=== PATIENT | female | born 2000 | race Caucasian/White ===

== ENCOUNTER 2022-08-13 05:30 | Emergency (ER) | payer BC, SELFPAY ==
[2022-08-13 05:32] VITALS: BP 130/82; PULSE 90; RESP 16; TEMP 36.6; O2SAT 96
[2022-08-13 05:40] VITALS: O2SAT 96
[2022-08-13] MEDS: ONDANSETRON HCL ODT 4 MG TABLET PO (06:05)
--- NOTE | 2022-08-13 06:08 | ED.GENADULT ---
HPI - General Adult General Chief complaint: Upper Respiratory Infection Stated complaint: upper respiratory infection Time Seen by Provider: 08/13/22 06:33 History of Present Illness HPI narrative: Patient is a 21-year-old female who presents the emergency department with chief complaint of viral syndrome. The patient reports that yesterday evening she noticed that she started having some body aches and chills had a cough and reported she has had some nausea patient reports her last menstrual period was about a week ago reports that her mother had COVID recently but she did not have any close contact but was in the same house with her the patient reports that she has been vaccinated for COVID Related Data Allergies Allergy/AdvReac Type Severity Reaction Status Date / Time No Known Allergies Allergy Verified 08/13/22 05:41 Review of Systems Review of Systems: A 10 system review of systems was completed on the patient and is negative except for what is stated in the HPI. Nursing and ancillary documentation was reviewed. Exam Narrative: GENERAL: Well-appearing, well-nourished, and in no acute distress. HEAD: Normocephalic, atraumatic. EYES: PERRLA and EOMI. ENT: Nares clear, no rhinorrhea or epistaxis. Mucous membranes moist. NECK: Supple. CHEST: Clear to auscultation. No respiratory distress. HEART: Regular rate and rhythm. No murmur heard. Normal peripheral pulses. ABDOMEN: Soft, nontender, nondistended, normal active bowel sounds. EXTREMITIES: Normal range of motion. No edema. SKIN: Warm, dry, no rash. NEURO: No focal deficits. Alert and oriented x3. PSYCH: Normal mood and affect. Course Course Emergency Course: Patient is feeling much better after receiving Zofran ODT. Patient tested positive for influenza A and the patient was offered Tamiflu which she is excepted the prescription. Vital Signs Vital signs: Vital Signs Temperature 36.6 C 08/13/22 05:32 Pulse Rate 90 08/13/22 05:32 Respiratory Rate 16 08/13/22 05:32 Blood Pressure 130/82 08/13/22 05:32 Pulse Oximetry 96 08/13/22 05:32 Oxygen Delivery Room Air 08/13/22 05:32 Temperature 36.6 C 08/13/22 05:32 Pulse Rate 90 08/13/22 05:32 Respiratory Rate 16 08/13/22 05:32 Blood Pressure 130/82 08/13/22 05:32 Pulse Oximetry 96 08/13/22 05:40 Oxygen Delivery Room Air 08/13/22 05:40 Medical Decision Making Vital Signs Vital Signs: Vital Signs Temperature 36.6 C 08/13/22 05:32 Pulse Rate 90 08/13/22 05:32 Respiratory Rate 16 08/13/22 05:32 Blood Pressure 130/82 08/13/22 05:32 Pulse Oximetry 96 08/13/22 05:32 Oxygen Delivery Room Air 08/13/22 05:32 Temperature 36.6 C 08/13/22 05:32 Pulse Rate 90 08/13/22 05:32 Respiratory Rate 16 08/13/22 05:32 Blood Pressure 130/82 08/13/22 05:32 Pulse Oximetry 96 08/13/22 05:40 Oxygen Delivery Room Air 08/13/22 05:40 Lab Data Labs: Lab Results 08/13/22 Range/Units 05:45 Influenza A (RT-PCR) Positive (Negative) Influenza B (RT-PCR) Negative (Negative) SARS-CoV-2 RNA (RT-PCR) Negative Discharge Plan Discharge Clinical Impression: Influenza A Patient Disposition: Home, Self-Care Condition: Stable Instructions: Antibiotic Form, Influenza (ED) Prescriptions: New oseltamivir [Tamiflu] 75 mg capsule 75 mg PO Q12H 5 Days Qty: 10 0RF ondansetron 4 mg tablet,disintegrating 4 mg PO Q8H PRN (Reason: nausea and vomiting) Qty: 10 0RF benzonatate 200 mg capsule 200 mg PO TID PRN (Reason: cough) Qty: 21 0RF Follow-up/Referrals: UNKNOWN,DOCTOR [Primary Care Provider] - Levar Renteria MD [Physician] - Stand Alone Forms: Work/School Release IP Time of Disposition: 06:40
[2022-08-13 06:34] LABS: Influenza A QL RT-PCR Positive (Negative); Influenza B QL RT-PCR Negative (Negative); SARS-CoV-2 RNA PCR Negative
== END 2022-08-13 06:48 | disposition home or self-care (01) ==
PROVIDERS: Emergency Provider Emergency Medicine
DX: J10.1 Influenza due to other identified influenza virus with other respiratory manifestations (principal); Z20.822 Contact with and (suspected) exposure to COVID-19
CPT/HCPCS: 87636; 99283; A9270

== ENCOUNTER 2024-08-20 20:17 | Emergency (ER) | payer BC, SELFPAY ==
--- NOTE | ~2024-08-20 | CT_ITS ---
CT of the Abdomen and Pelvis: Indication: Abdominal pain Technique: 2.5 mm axial scans were obtained through the abdomen and pelvis following intravenous adm inistration of 100 cc of Omnipaque 350. Dose reduction technique was used on this scan by utilizing a utomated exposure control and iterative reconstruction technique. The dose-length product (DLP) was 1 79.11 mGy-cm. Findings: Scans through the lung bases demonstrate a 4 mm pleural-based left lower lobe pulmonary no dule (axial image 12).. The liver, spleen, pancreas, gallbladder, adrenals and kidneys are within normal limits. No evidence of aortic aneurysm. No lymphadenopathy. No bowel obstruction or bowel wall thickening. There is no evidence to suggest acute appendicitis. Images through the pelvis were performed. Urinary bladder unremarkable. Questionable mild prominence right ovary. No ascites. Impression: Questionable minimal prominence right ovary. Consider pelvic ultrasound as indicated. 4 mm left lower lobe pulmonary nodule. According to Fleischner Society criteria, for a low-risk patie nt, no further follow-up required. For a high-risk patient, consider 12 month follow-up CT. Reviewed, dictated and finalized at [facility]. 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 Consider pelvic ultrasound as margie cated. 4 mm left lower lobe pulmonary nodule. According to Fleischner Society criteria , for a low-risk patient, no further follow-up required. For a high-risk patien t, consider 12 month follow-up CT.
[2024-08-20 20:19] VITALS: BP 132/87; PULSE 78; RESP 17; TEMP 36.5; O2SAT 97
[2024-08-20 21:01] LABS: Basophils Absolute Auto 0.1 K/mm3 (0.0-0.1); Basophils Percent Auto 0.8 % (0.2-1.2); Eosinophils Absolute Auto 0.1 K/mm3 (0-0.3); Eosinophils Percent Auto 1.5 % (0-4.4); Hematocrit 39.4 % (37.0-47.0); Immature Granulocyte Absolute 0.02 K/mm3 (0.00-0.031); Immature Granulocyte Percent A 0.2 % (0-0.5); Lymphocytes Absolute Auto 2.23 K/mm3 (0.9-3.2); Lymphocytes Percent Auto 23.5 % (18.3-44.2); Mean Corpuscular Hemoglobin 27.8 pg (26-34); Mean Corpuscular Volume 84.2 fl (80-100); Mean Platelet Volume 9.5 fl (7.4-10.4); Monocytes Absolute Auto 0.8 K/mm3 (0.1-0.6); Monocytes Percent Auto 8.5 % (2.6-8.5); Neutrophils Absolute Auto 6.2 K/mm3 (1.3-6.7); Neutrophils Percent Auto 65.5 % (45.5-73.1); Platelet Count Result 327 k/mm3 (150-375); Red Blood Count 4.68 M/mm3 (4.2-5.4); Red Cell Distribution Width 13.5 % (11.5-14.5); White Blood Count 9.5 K/mm3 (4.5-10.0)
[2024-08-20] MEDS: SODIUM CHLORIDE 0.9% IV 1,000 ML 999 ML IV CONT (21:12)
[2024-08-20] MEDS: FAMOTIDINE 20 MG/2 ML VIAL IV PUSH (21:12)
[2024-08-20] MEDS: ONDANSETRON INJ 4 MG/2 ML VIAL IV PUSH (21:12)
[2024-08-20 21:14] LABS: Alanine Aminotransferase 15 U/L (6-35); Albumin Level 4.6 g/dL (3.5-5.1); Alkaline Phosphatase 57 U/L (38-126); Anion Gap 9 mmol/L (4-12); Aspartate Amino Transferase 24 U/L (14-36); Bilirubin,Total 0.7 mg/dL (0.2-1.3); Blood Urea Nitrogen 16 mg/dL (7-17); Calcium 9.7 mg/dL (8.4-10.2); Carbon Dioxide 26 mmol/L (22-30); Chloride 101 mmol/L (98-107); Estimated CRCL calculation 100 ml/min; Estimated Glomerular Filt Rate > 60; Glucose 79 mg/dL (65-110); Lipase 35 U/L (23-300); Magnesium 1.8 mg/dL (1.6-2.3); Potassium 3.5 mmol/L (3.4-5.0); Sodium 136 mmol/L (137-145)
--- NOTE | 2024-08-20 22:04 | ED_ITS ---
HPI - Nausea/Vomiting/Diarrhea General Chief complaint: Nausea/Vomiting/Diarrhea Stated complaint: n/v Time Seen by Provider: 08/20/24 20:32 Source: patient Mode of arrival: ambulatory Limitations: no limitations History of Present Illness HPI Narrative: Patient is a 23-year-old female who presents the ED with report of nausea and vomiting. Patient reports she has had upper respiratory symptoms over the last few days. She was seen in urgent care tested negative for COVID. She then reports today she began having nausea and vomiting. States symptoms have persisted throughout the day and she is unable to keep down any food or drink. Reports abdominal cramping associated with vomiting. Denies diarrhea, constipation. Denies fevers. Related Data Allergies Allergy/AdvReac Type Severity Reaction Status Date / Time No Known Allergies Allergy Verified 08/20/24 20:22 Review of Systems 2 Review of Systems: All systems reviewed & are unremarkable except as noted in HPI. All systems reviewed & are unremarkable except as noted in HPI and below Exam 2 Narrative: GENERAL: Mildly uncomfortable appearing, thin, non-toxic, in no acute distress. HEAD: Normocephalic, atraumatic. RESPIRATORY: Airway patent, respirations nonlabored. Clear to auscultation bilaterally, no rales, rhonchi, wheezing. CARDIOVASCULAR: Regular rate and rhythm without murmurs, rubs, or gallops. ABDOMINAL: Soft, mild tenderness with palpation in upper abdomen, nondistended. Normoactive BS. MUSCULOSKELETAL: Moves all extremities. No gross deformities. SKIN: Warm, dry, normal color. NEURO: A&O X3. Speech clear. No ataxic movements. PSYCHIATRIC: Appropriate mood and affect. Normal interaction. Course Vital Signs Vital signs: Vital Signs Temperature 97.7 F 08/20/24 20:19 Pulse Rate 78 08/20/24 20:19 Respiratory Rate 17 08/20/24 20:19 Blood Pressure 132/87 08/20/24 20:19 Pulse Oximetry 97 08/20/24 20:19 Oxygen Delivery Room Air 08/20/24 20:19 Temperature 97.7 F 08/20/24 20:19 Pulse Rate 78 08/20/24 20:19 Respiratory Rate 17 08/20/24 20:19 Blood Pressure 132/87 08/20/24 20:19 Pulse Oximetry 97 08/20/24 20:19 Oxygen Delivery Room Air 08/20/24 20:19 MDM - Nausea/Vomiting/Diarrhea MDM Narrative Medical decision making narrative: Patient presented to ED with N/V onset this morning, unable to keep down food or drink, reports URI sx's over the past few days. VSS upon arrival. She is afebrile. Cbc without leukocytosis or anemia. CMP is unremarkable. Stable electrolytes. Normal LFTs and lipase. UA with 1+ leuk esterase, 11-20 white blood cell count. No urine bacteria seen. Patient denies any urinary complaints. Sent for culture. Will defer treatment to culture results. Urine preg negative. Viral swabs are negative. CT abd/pelvis obtained and without acute intra-abdominal findings. Discussed lab and imaging findings with patient, likelihood of gastroenteritis. She is feeling improved with supportive therapy. Feels comfortable with discharge home at this time. Able to tolerate p.o. intake. Will discharge with Bentyl and Zofran for home use. Given strict return precautions. She agrees with plan. Discharged in stable condition. Medical Records Attestation: I reviewed the patient's medical records. Lab Data Attestation: I reviewed the patient's lab results. 08/20/24 20:55 08/20/24 20:55 Labs: Lab Results 08/20/24 08/20/24 08/20/24 Range/Units 20:55 22:12 22:54 WBC 9.5 (4.5-10.0) K/mm3 RBC 4.68 (4.2-5.4) M/mm3 Hgb 13.0 (12.0-15.0) g/dL Hct 39.4 (37.0-47.0) % MCV 84.2 (80-100) fl MCH 27.8 (26-34) pg MCHC 33.0 (32-36) g/dl RDW 13.5 (11.5-14.5) % Plt Count 327 (150-375) k/mm3 MPV 9.5 (7.4-10.4) fl Immature Gran % (Auto) 0.2 (0-0.5) % Neut % (Auto) 65.5 (45.5-73.1) % Lymph % (Auto) 23.5 (18.3-44.2) % Guadalupe % (Auto) 8.5 (2.6-8.5) % Eos % (Auto) 1.5 (0-4.4) % Baso % (Auto) 0.8 (0.2-1.2) % Lymph # (Auto) 2.23 (0.9-3.2) K/mm3 [place]upe # (Auto) 0.8 H (0.1-0.6) K/mm3 Eos # (Auto) 0.1 (0-0.3) K/mm3 Baso # (Auto) 0.1 (0.0-0.1) K/mm3 Abs Immat Gran (auto) 0.02 (0.00-0.031) K/mm3 Absolute Neuts (auto) 6.2 (1.3-6.7) K/mm3 Absolute Nucleated RBC 0.000 (0.0-0.012) K/mm3 Nucleated RBC % 0.0 (0.0-0.2) % Sodium 136 L (137-145) mmol/L Potassium 3.5 (3.4-5.0) mmol/L Chloride 101 (98-107) mmol/L Carbon Dioxide 26 (22-30) mmol/L Anion Gap 9 (4-12) mmol/L BUN 16 (7-17) mg/dL Creatinine 0.60 L (0.7-1.0) mg/dL Estim Creat Clear Calc 100 ml/min Estimated GFR > 60 (59 - ) Glucose 79 (65-110) mg/dL Calcium 9.7 (8.4-10.2) mg/dL Magnesium 1.8 (1.6-2.3) mg/dL Total Bilirubin 0.7 (0.2-1.3) mg/dL AST 24 (14-36) U/L ALT 15 (6-35) U/L Alkaline Phosphatase 57 (38-126) U/L Total Protein 8.0 (6.3-8.2) g/dL Albumin 4.6 (3.5-5.1) g/dL Lipase 35 (23-300) U/L Urine Color Yellow (Yellow) Urine Appearance Cloudy H (Clear) Urine pH 6.5 (5.0-9.0) Ur Specific Taylor 1.022 (1.001-1.035) Urine Protein Trace (Negative) mg/dL Urine Glucose (UA) Negative (Negative) mg/dL Urine Ketones 1+ H (Negative) mg/dL Ur Blood (Man) Negative (Negative) Urine Nitrate Negative (Negative) Urine Bilirubin Negative (Negative) Urine Urobilinogen 0.2 (<2.0) mg/dL Leukocyte Esterase Rfl 1+ H (Negative) REYNA/UL Urine RBC 0-2 (0-2) /hpf Urine WBC 11-20 H (0-3) /hpf Ur Squamous Epith Cells None seen (Few) /hpf Urine Bacteria None seen /hpf Urine Casts 0-2 POC Urine HCG, Qual (Negative) Influenza A (RT-PCR) Negative (Negative) Influenza B (RT-PCR) Negative (Negative) RSV (RT-PCR) Negative (Negative) SARS-CoV-2 RNA (RT-PCR) Negative (Negative) 08/20/24 Range/Units 22:55 WBC (4.5-10.0) K/mm3 RBC (4.2-5.4) M/mm3 Hgb (12.0-15.0) g/dL Hct (37.0-47.0) % MCV (80-100) fl MCH (26-34) pg MCHC (32-36) g/dl RDW (11.5-14.5) % Plt Count (150-375) k/mm3 MPV (7.4-10.4) fl Immature Gran % (Auto) (0-0.5) % Neut % (Auto) (45.5-73.1) % Lymph % (Auto) (18.3-44.2) % Guadalupe % (Auto) (2.6-8.5) % Eos % (Auto) (0-4.4) % Baso % (Auto) (0.2-1.2) % Lymph # (Auto) (0.9-3.2) K/mm3 [place]upe # (Auto) (0.1-0.6) K/mm3 Eos # (Auto) (0-0.3) K/mm3 Baso # (Auto) (0.0-0.1) K/mm3 Abs Immat Gran (auto) (0.00-0.031) K/mm3 Absolute Neuts (auto) (1.3-6.7) K/mm3 Absolute Nucleated RBC (0.0-0.012) K/mm3 Nucleated RBC % (0.0-0.2) % Sodium (137-145) mmol/L Potassium (3.4-5.0) mmol/L Chloride (98-107) mmol/L Carbon Dioxide (22-30) mmol/L Anion Gap (4-12) mmol/L BUN (7-17) mg/dL Creatinine (0.7-1.0) mg/dL Estim Creat Clear Calc ml/min Estimated GFR (59 - ) Glucose (65-110) mg/dL Calcium (8.4-10.2) mg/dL Magnesium (1.6-2.3) mg/dL Total Bilirubin (0.2-1.3) mg/dL AST (14-36) U/L ALT (6-35) U/L Alkaline Phosphatase (38-126) U/L Total Protein (6.3-8.2) g/dL Albumin (3.5-5.1) g/dL Lipase (23-300) U/L Urine Color (Yellow) Urine Appearance (Clear) Urine pH (5.0-9.0) Ur Specific Taylor (1.001-1.035) Urine Protein (Negative) mg/dL Urine Glucose (UA) (Negative) mg/dL Urine Ketones (Negative) mg/dL Ur Blood (Man) (Negative) Urine Nitrate (Negative) Urine Bilirubin (Negative) Urine Urobilinogen (<2.0) mg/dL Leukocyte Esterase Rfl (Negative) REYNA/UL Urine RBC (0-2) /hpf Urine WBC (0-3) /hpf Ur Squamous Epith Cells (Few) /hpf Urine Bacteria /hpf Urine Casts POC Urine HCG, Qual Negative (Negative) Influenza A (RT-PCR) (Negative) Influenza B (RT-PCR) (Negative) RSV (RT-PCR) (Negative) SARS-CoV-2 RNA (RT-PCR) (Negative) Imaging Data Attestation: I personally reviewed and interpreted this imaging study as follows: Radiologist's impression: STAT RAD CT abd/pelvis: Impression: No acute findings. Incidental findings: Liver, gallbladder, spleen, pancreas, adrenal glands, and kidneys are unremarkable. Normal appendix. No bowel obstruction. No bowel inflammation. Arcuate uterine morphology. Normal urinary bladder. No acute osseous findings. Discharge Plan Discharge Clinical Impression: Nausea and vomiting Qualifiers: Vomiting type: unspecified Qualified Code(s): R11.2 - Nausea with vomiting, unspecified Patient Disposition: Home, Self-Care Condition: Stable Instructions: Antibiotic Form, Dehydration (ED), Gastroenteritis (ED), Acute Nausea and Vomiting (ED) Additional Instructions: Utilize Tylenol/Bentyl as needed for further abdominal discomfort. Utilize zofran as needed for further nausea. Increase fluid intake. Recommend electrolyte rich fluids, gatorade, pedialyte, body armour. Recommend clear liquids or bland diet until symptoms improve, such as bananas, rice, applesauce, toast, or crackers. Follow up with your primary care doctor for further evaluation. Return to the ED if you experience worsening or severe symptoms, unable to keep down food or drink, severe pain, fevers, rectal bleeding, vomiting blood, or any other symptoms of concern. Patient Language: Khmer Prescriptions: New dicyclomine 20 mg tablet 20 mg PO TID PRN (Reason: Abdominal Discomfort) Qty: 15 0RF ondansetron 4 mg tablet,disintegrating 4 mg PO Q8H PRN (Reason: nausea and vomiting) Qty: 15 0RF No Action oseltamivir [Tamiflu] 75 mg capsule 75 mg PO Q12H 5 Days Qty: 10 0RF ondansetron 4 mg tablet,disintegrating 4 mg PO Q8H PRN (Reason: nausea and vomiting) Qty: 10 0RF benzonatate 200 mg capsule 200 mg PO TID PRN (Reason: cough) Qty: 21 0RF Follow-up/Referrals: UNKNOWN,DOCTOR [Primary Care Provider] - Time of Disposition: 01:31
[2024-08-20 22:55] LABS: Influenza A QL RT-PCR Negative (Negative); Influenza B QL RT-PCR Negative (Negative); RSV RNA, RT-PCR Negative (Negative); SARS-CoV-2 RNA PCR Negative (Negative)
[2024-08-20 23:02] LABS: Add Urine Microscopic? YES; Appearance Urine Cloudy (Clear); Bacteria Urine None Seen /hpf; Bilirubin Urine Negative (Negative); Blood Urine Negative (Negative); Color Urine Yellow (Yellow); Glucose Urine UA Negative (Negative); Ketones Urine 1+ mg/dL (Negative); Leukocyte Esterase Ur 1+ LEU/UL (Negative); Nitrate Urine Negative (Negative); Non Pathogenic Casts 0-2; Protein Urine Trace mg/dL (Negative); RBC Urine 0-2 /hpf (0-2); Specific Grav Ur 1.022 (1.001-1.035); Squamous Epithelial Cell Urine None Seen /hpf (Few); Urobilinogen Urine 0.2 mg/dL (<2.0); pH Urine 6.5 (5.0-9.0)
[2024-08-20 23:03] LABS: BEDSIDEPREGUCG Negative (Negative)
[2024-08-21 01:47] VITALS: BP 152/84; PULSE 67; RESP 16; O2SAT 100
--- OUTSIDE RECORDS SUMMARY | 2024-08-25 04:25 | XMS_ITS | Encounter Summary ---
Author Organization [facility] Address [address] [place] [address] Care Team Providers Care Clinical Rn Manager Name Role Phone Nata Conley MD Primary Care Provider [phone] Reason for Visit * Reason Comments Refill Request Encounter Details Date Type Department Care Team (Late st Contact Info) Description 05/31/2020 Refill [facility] - Pediatrics [address] [place] [phone] Nata Conley MD [address] [place] [address] Refill Request Social History Tobacco Use Types Packs/Day Years Used Date Smoking Tobacco: Never Smokeless Tobacco: Never Comments:non smoking househo ld Alcohol Use Standard Drinks/Week Comments No 0 (1 standard drink = 0.6 oz pur e alcohol) Sex and Gender Information Value Date Recorded Sex Assigned at Not on file Gender Identity Not on file Sexual Orientation Not on file documented as of this encounter Miscellaneous Notes * Telephone Encounter - Birgit Lundberg RN - 06/01/2020 8:59 AM CDT See other message in chart - phone number for parent is not working. Need updated phone number. * Telephone Encounter - Nata Conley MD - 06/01/2020 7:53 AM CDT One month supply provided. Will need to schedule well child check prior to additional refills beinggiven. * Telephone Encounter - Birgit Lundberg RN - 05/31/2020 8:14 AM CDT DOES NOT MEET PROTOCOL - SENT TO PROVIDER FOR REVIEW Last Office Visit with PCP: 02/23/19 Next Appointment with PCP: Visit date not found Follow-up: 12 months Date of last refill: 05/10/19 Please advise PT IS DUE FOR [facility]. MESSAGE SENT TO HEADING REPAIRER TO SCHEDULE. documented in this encounter Plan of Treatment Not on file documented as of this encounter Goals Goal Patient Goal Type Associated Problems Recent Progress Patient-Stated? 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
--- OUTSIDE RECORDS SUMMARY | 2024-08-25 04:25 | XMS_ITS | Encounter Summary ---
Author Organization [facility] Address [address] [place] [address] Care Team Providers Care Medication Coordinator Name Role Phone Nata Conley MD Primary Care Provider [phone] Reason for Visit * Reason Comments Refill Request Encounter Details Date Type Department Care Team (Late st Contact Info) Description 05/10/2019 Refill [facility] - Pediatrics [address] [address] [place] [address] Nata Conley MD [address] [place] [address] Refill Request Social History Tobacco [...] encounter Miscellaneous Notes * Telephone Encounter - Eryn Jean-Baptiste RN - 05/14/2019 11:06 AM CDT Called parents and notified via VM that medication refilled and to f/u with pharmacy. Left number to call office back as needed-note closed out. * Telephone Encounter - Tania Cota RN - 05/10/2019 12:14 PM CDT Refill request for [place]-Linyah SHERWIN:02-23-19 Last refill:02-25-19 NOV:None scheduled Requested Prescriptions Pending Prescriptions Disp Refills ??? MONO-LINYAH 0.25-35 MG-MCG tablet [Pharmacy Med Name: MONO-LINYAH 0.25-35 TAB] 28 tablet 1 Sig: TAKE 1 TABLET BY MOUTH ONCE DAILY REASONS: CONTROL TREATMENT documented in this encounter Plan of Treatment Not on file documented as of this encounter Goals Goal Patient Goal Type Associated Problems Recent Progress Patient-Stated? 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
--- OUTSIDE RECORDS SUMMARY | 2024-08-25 04:25 | XMS_ITS | Encounter Summary ---
Author Organization [facility] Address [address] [facility] [place] [address] Care Team Providers Care Back Up Worker Name Role Phone Nata Conley MD Primary Care Provider [phone] Reason for Visit * Reason Comments Ear Problem Rash Encounter Details Date Type Department Care Team (Late st Contact Info) Description 12/30/2023 1:00 PM CDT Office Visit [facility] [address] [phone] Provider1, [facility] Dysfunction of left eustachian tube (Primary Dx) Social History Tobacco Use Types Packs/Day Years Used Date Smoking Tobacco: Never Smokeless Tobacco: Never Comments:non smoking househo Alcohol Use Standard Drinks/Week Comments No 0 (1 standard drink = 0.6 oz pur e alcohol) PHQ-2 Answer Date Recorded Patient Health Questionnaire-2 Score 0 12/30/2023 Sex and Gender Information Value Date Recorded Sex Assigned at Not on file Gender Identity Not on file Sexual Orientation Not on file documented as of this encounter Last Filed Vital Signs Vital Sign Reading Time Taken Comments Blood Pressure - - Pulse - - Temperature 36.7 ??C (98.1 ??F) 12/30/2023 1:19 PM CD T Respiratory Rate 18 12/30/2023 1:19 PM CDT Oxygen Saturation - - Inhaled Oxygen Concentration - - Weight 51.5 kg (113 lb 9.6 oz) 12/30/2023 1:19 P M CDT Height 157.5 cm (5' 2 ) 12/30/2023 1:19 PM CDT Body Mass Index 20.78 12/30/2023 1:19 PM CDT documented in this encounter Patient Instructions * Patient Instructions* Jaclyn Cade APRN-CNP - 12/30/2023 2:20 PM CDT Use flonase daily. Chew gum, yawn, frequently try to pop your ears. Daily zyrtec or allergy tab recommended. documented in this encounter Progress Notes * Jaclyn Cade APRN-CNP - 12/30/2023 2:17 PM CDT 12/30/2023 PCP: Nata Conley MD CC: Chief Complaint Patient presents with ??? Ear Problem ??? Rash . HPI: Carmen Tse is a 23 year old female [facility] with complaints of muffled hearing to left ear. The patient was recently treated for left ear infection. She reports she feels better but still having some aching and muffled hearing in her left ear. She is concerned about a fine red rash to her neck. Outpatient Medications Prior to Visit Medication Sig Dispense Refill ??? amoxicillin-clavulanate (Augmentin) 875-125 MG tablet Take 1 (one) tablet by mouth 2 times daily with morning and evening meal for 7 days (Patient not taking: Reported on 12/30/2023) 14 tablet 0 ??? azithromycin (Zithromax) 250 MG tablet Take 2 tabs today, then 1 tab daily for next 4 days (Patient not taking: Reported on 07/21/2023) 6 tablet 0 ??? norgestimate-ethinyl estradiol (MONO-LINYAH) 0.25-35 MG-MCG tablet Take 1 tablet by mouth once daily (Patient not taking: Reported on 06/23/2022) 28 tablet 6 No facility-administered medications prior to visit. Past Medical History: Diagnosis Date ??? NEGATIVE PAST MEDICAL HISTORY - SEE PROBLEM LIST Past Surgical History: Procedure Laterality Date ??? NEGATIVE SURGICAL HISTORY Social History Tobacco Use Smoking Status Never Smokeless Tobacco Never Tobacco Comments non smoking household Social History Substance and Sexual Activity Drug Use No No Known Allergies Family History Problem Relation Name Age of Onset ??? Other - Cardiac Father 1st [place] at age 42 ??? Cancer - Other Father Renal ??? Hypertension Father ??? Hyperlipidemia Father ??? CAD (Coronary Artery Disease) Father ??? Other Maternal Grandmother PVD ??? Other - Cardiac Maternal Grandfather at age 46 from V-fib ??? Asthma Neg Hx ??? Autoimmune Disease Neg Hx ??? Bipolar Disorder Neg Hx ??? Cancer - Breast Neg Hx ??? Cancer - Colon Neg Hx ??? Cancer - Ovarian Neg Hx ??? Cancer - Pancreatic Neg Hx ??? Cancer - Prostate Neg Hx ??? Depression Neg Hx ??? Eczema Neg Hx ??? Migraine Neg Hx ??? Seizures Neg Hx ? ? Sudd. <30 Neg Hx ??? Thyroid Disease Neg Hx ??? Osteoporosis Neg Hx ??? Ulcerative Colitis Neg Hx Review of Systems: Pertinent information listed in HPI. Exam: Temp 98.1 ??F (36.7 ??C) Resp 18 Ht 1.575 m (5' 2 ) Wt 51.5 kg (113 lb 9.6 oz) LMP 12/16/2023 (Approximate) BMI 20.78 kg/m?? Physical Exam Vitals and nursing note reviewed. HENT: Head: Normocephalic. Right Ear: Hearing, tympanic membrane, ear canal and external ear normal. Left Ear: Ear canal and external ear normal. There is impacted cerumen. Tympanic membrane has decreased mobility. Mouth/Throat: Mouth: Mucous membranes are moist. Cardiovascular: Rate and Rhythm: Normal rate. Pulmonary: Effort: Pulmonary effort is normal. Neurological: Mental Status: She is alert. No results found for this visit on 12/30/23. Plan Impression: ICD-10-CM 1. Dysfunction of left eustachian tube H69.92 fluticasone propionate (Flonase) 50 MCG/ACT nasal spray Treatment: Flushed left ear with warm water and peroxide. Upon exam no erythema or concern for infection. Cannot pop her ear. Orders Placed This Encounter ??? fluticasone propionate (Flonase) 50 MCG/ACT nasal spray Sig: [place] 2 (two) sprays into each nostril once daily Dispense: 16 g Refill: 0 Patient Instructions Use flonase daily. Chew gum, yawn, frequently try to pop your ears. Daily zyrtec or allergy tab recommended. There are no discontinued medications. Current Outpatient Medications Medication Sig Dispense Refill ??? amoxicillin-clavulanate (Augmentin) 875-125 MG tablet Take 1 (one) tablet by mouth 2 times daily with morning and evening meal for 7 days (Patient not taking: Reported on 12/30/2023) 14 tablet 0 ??? azithromycin (Zithromax) 250 MG tablet Take 2 tabs today, then 1 tab daily for next 4 days (Patient not taking: Reported on 07/21/2023) 6 tablet 0 ??? fluticasone propionate (Flonase) 50 MCG/ACT nasal spray [place] 2 (two) sprays into each nostril once daily 16 g 0 ??? norgestimate-ethinyl estradiol (MONO-LINYAH) 0.25-35 MG-MCG tablet Take 1 tablet by mouth once daily (Patient not taking: Reported on 06/23/2022) 28 tablet 6 No current facility-administered medications for this visit. Follow up : Return if symptoms worsen or fail to improve. JESUS ALBERTO Amezquita documented in this encounter Plan of Treatment Not on file documented as of this encounter Goals Goal Patient Goal Type Associated Problems Recent Progress Patient-Stated? Author Use safety retraint in car Lifestyle On track( 020 1:40 PM TICKET BROKER) No Irais Rios documented as of this encounter Visit Diagnoses Diagnosis Dysfunction of left eustachian tube- Primary Dysfunction of Eustachian tube documented in this encounter Care Teams Back Up Worker Relationship Specialty Start Date End Date Nata Conlye MD [address] [place] [phone] PCP - General Pediatrics 02/23/19 documented as of this encounter
--- OUTSIDE RECORDS SUMMARY | 2024-08-25 04:25 | XMS_ITS | Encounter Summary ---
Author Organization [facility] Address [address] [facility] [place] [address] Care Team Providers Care Brazing Machine Operator Automatic Name Role Phone Nata Conley MD Primary Care Provider Encounter Details Date Type Department Care Team (Latest Contact Info) Description 12/24/2023 Travel Social History Tobacco Use Types Packs/Day Years Used Date Smoking Tobacco: Never Smokeless Tobacco: Never Comments:non smoking househo ld Alcohol Use Standard Drinks/Week Comments No 0 (1 standard drink = 0.6 oz pur e alcohol) PHQ-2 Answer Date Recorded Patient Health Questionnaire-2 Score 0 12/24/2023 Sex and Gender Information Value Date Recorded Sex Assigned at Not on file Gender Identity Not on file Sexual Orientation Not on file documented as of this encounter Plan of Treatment Not on file documented as of this encounter Goals Goal Patient Goal Type Associated Problems Recent Progress Patient-Stated? Author Use safety retraint in car Lifestyle On track( 020 1:40 PM VAT CLEANER) No Irais Rios documented as of this encounter Visit Diagnoses Not on filedocumented in this encounter Care Teams Brazing Machine Operator Automatic Relationship Specialty Start Date End Date Nata Conley MD [address] [place] [phone] PCP - General Pediatrics 02/23/19 documented as of this encounter
--- OUTSIDE RECORDS SUMMARY | 2024-08-25 04:25 | XMS_ITS | Encounter Summary ---
Author Organization [facility] Address [address] [place] [address] Care Team Providers Care Elastic Attacher Zigzag Name Role Phone Nata Conley MD Primary Care Provider [phone] Encounter Details Date Type Department Care Team (Latest Contact Info) Description 06/23/2022 Travel Social History Tobacco Use Types Packs/Day Years Used Date Smoking Tobacco: Never Smokeless Tobacco: Never Comments:non smoking househo ld Alcohol Use Standard Drinks/Week Comments No 0 (1 standard drink = 0.6 oz pur e alcohol) PHQ-2 Answer Date Recorded PHQ2 TOTAL SCORE 0 06/23/2022 Sex and Gender Information Value Date Recorded Sex Assigned at Not on file Gender Identity Not on file Sexual Orientation Not on file COVID-19 Exposure Response Date Recorded In the last 10 days, have yo u been in contact with someone who was confirmed or suspected to have Coronavirus/COVID-19? No / Unsure 06/23/2022 1:27 PM CDT documented as of this encounter Plan of Treatment Not on file documented as of this encounter Goals Goal Patient Goal Type Associated Problems Recent Progress Patient-Stated? Author Use safety retraint in car Lifestyle On track( 020 1:40 PM RELEASE MANAGER) No Irais Rios documented as of this encounter Visit Diagnoses Not on filedocumented in this encounter Care Teams Elastic Attacher Zigzag Relationship Specialty Start Date End Date Nata Conley MD [address] [place] [phone] PCP - General Pediatrics 02/23/19 documented as of this encounter
--- OUTSIDE RECORDS SUMMARY | 2024-08-25 04:25 | XMS_ITS | Encounter Summary ---
Author Organization [facility] Address [address] [facility] [place] [address] Care Team Providers Care Centralized Traffic Control Operator Name Role Phone Nata Conley MD Primary Care Provider [phone] Reason for Visit * Reason Comments Cough Sore Throat Encounter Details Date Type Department Care Team (Late st Contact Info) Description 07/21/2023 3:00 PM PROOF READER Office Visit [facility] [address] [phone] Provider1, [facility] Acute pharyngitis, unspecified etiology (Primary Dx); Acute cough Social History Tobacco Use Types Packs/Day Years Used Date Smoking Tobacco: Never Smokeless Tobacco: Never Tobacco Cessation:Counseling Given: Not Answered Comments:non smoking household Alcohol Use Standard Drinks/Week Comments No 0 [...] Sign Reading Time Taken Comments Blood Pressure 116/77 07/21/2023 2:56 PM PROOF READER Pulse 106 07/21/2023 2:56 PM PROOF READER Temperature 36.9 ??C (98.5 ??F) 07/21/2023 2:56 PM CS T Respiratory Rate 20 07/21/2023 2:56 PM PROOF READER Oxygen Saturation 97% 07/21/2023 2:56 PM PROOF READER Inhaled Oxygen Concentration - - Weight 46.3 kg (102 lb) 07/21/2023 2:56 PM PROOF READER Height - - Body Mass Index - - documented in this encounter Progress Notes * Hiren Dickey, BOILER WASHER-[employer] INTERN - 07/21/2023 3:04 PM CST 07/21/2023 PCP: Nata Conley MD CC: Chief Complaint Patient presents with ??? Cough ??? Sore Throat . HPI: Carmen Tse is a 22 year old female [facility] with complaints of cough, sore throat, and congestion for a few weeks. Has used nyquil and dayquil. Has had a low grade temp at times. Outpatient Medications Prior to Visit Medication Sig Dispense Refill ??? azithromycin (Zithromax) 250 MG tablet Take [...] Onset ??? Other - Cardiac Father 1st [place] at age 42 ??? Cancer - Other [...] Systems: Pertinent information listed in HPI. Exam: BP 116/77 Pulse 106 Temp 98.5 ??F (36.9 ??C) Resp 20 Wt 46.3 kg (102 lb) LMP 06/19/2022 SpO2 97% No Physical Exam Vitals and nursing note reviewed. Constitutional: Appearance: Normal appearance. HENT: Head: Normocephalic. Right Ear: Hearing, ear canal and external ear normal. Tympanic membrane is bulging. Left Ear: Hearing, ear canal and external ear normal. Tympanic membrane is bulging. Nose: Nose normal. Mouth/Throat: Mouth: Mucous membranes are moist. Pharynx: Uvula midline. Pharyngeal swelling and posterior oropharyngeal erythema present. Tonsils: 3+ on the right. 3+ on the left. Eyes: Pupils: Pupils are equal, round, and reactive to light. Cardiovascular: Rate and Rhythm: Normal rate. Pulmonary: Effort: Pulmonary effort is normal. Breath sounds: Normal breath sounds and air entry. Skin: General: Skin is warm and dry. Capillary Refill: Capillary refill takes less than 2 seconds. Neurological: General: No focal deficit present. Mental Status: She is alert. Psychiatric: Mood and Affect: Mood normal. Behavior: Behavior normal. Behavior is cooperative. No results found for this visit on 07/21/23. Plan Impression: ICD-10-CM 1. Acute pharyngitis, unspecified etiology J02.9 2. Acute cough R05.1 Treatment: Orders Placed This Encounter ??? amoxicillin-clavulanate (Augmentin) 875-125 MG tablet Sig: Take 1 (one) tablet by mouth 2 times daily with morning and evening meal Dispense: 20 tablet Refill: 0 There are no Patient Instructions on file for this visit. There are no discontinued medications. Current Outpatient Medications Medication Sig Dispense Refill ??? amoxicillin-clavulanate (Augmentin) 875-125 MG tablet Take 1 (one) tablet by mouth 2 times daily with morning and evening meal 20 tablet 0 ??? azithromycin (Zithromax) 250 MG tablet Take 2 tabs today, then 1 tab daily for next 4 days (Patient not taking: Reported on 07/21/2023) 6 tablet 0 ??? norgestimate-ethinyl estradiol (MONO-LINYAH) 0.25-35 MG-MCG tablet Take 1 tablet by mouth once daily (Patient not taking: Reported on 06/23/2022) 28 tablet 6 No current facility-administered medications for this visit. Follow up : No follow-ups on file. JESUS ALBERTO Moreland F READER documented in this encounter Plan of Treatment Not on file documented as of this encounter Goals Goal Patient Goal Type Associated Problems Recent Progress Patient-Stated? Author Use safety retraint in car Lifestyle On track( 020 1:40 PM PROOF READER) No Irais Rios documented as of this encounter Visit Diagnoses Diagnosis Acute pharyngitis, unspecified etiology- Primary Acute cough documented in this encounter Care Teams Centralized Traffic Control Operator Relationship Specialty Start Date End Date Nata Conley MD [address] [place] [phone] PCP - General Pediatrics 02/23/19 documented as of this encounter
--- OUTSIDE RECORDS SUMMARY | 2024-08-25 04:25 | XMS_ITS | Encounter Summary ---
Author Organization [facility] Address [address] [place] [address] Care Team Providers Care Materials Handling Equipment Operator Name Role Phone Nata Conley MD Primary Care Provider [phone] Reason for Visit * Reason Comments Well Child Check 19yr Encounter Details Date Type Department Care Team (Latest Contact Info) Description 07/10/2020 1:45 PM PINBALL MACHINE REPAIRER Office Visit [facility] - Pediatrics [address] [facility] [address] [place] [address] Chago Coates, DO [address] [place] [address] Encounter for routine child health examination without abnormal findings (Primary Dx); Need for vaccination; Screening for iron deficiency anemia; Encounter for surveillance of contraceptive pills Social History Tobacco Use Types Packs/Day Years [...] Sign Reading Time Taken Comments Blood Pressure 100/62 07/10/2020 1:38 PM PINBALL MACHINE REPAIRER Pulse - - Temperature 36.6 ??C (97.9 ??F) 07/10/2020 1:38 PM CS T Respiratory Rate - - Oxygen Saturation - - Inhaled Oxygen Concentration - - Weight 51.6 kg (113 lb 12.8 oz) 07/10/2020 1:38 PM PINBALL MACHINE REPAIRER Height 161.1 cm (5' 3.43 ) 07/10/2020 1:38 PM CS T Body Mass Index 19.89 07/10/2020 1:38 PM PINBALL MACHINE REPAIRER Body Mass Index Percentile 32.42% 07/10/2020 1:3 8 PM PINBALL MACHINE REPAIRER Growth Chart: CDC (Girls, 2- 20 Years) documented in this encounter Patient Instructions * Patient Instructions* Luis Luz MA - 07/10/2020 1:40 PM PINBALL MACHINE REPAIRER YOUR GROWING CHILD: 15 TO 17 YEARS Child???s Name: Carmen Tse Today???s Date: 07/10/2020 BP 100/62 Temp 97.9 ??F (36.6 ??C) (Temporal) Ht 1.611 m (5' 3.43 ) Wt 51.6 kg (113 lb 12.8 oz) BMI19.89 kg/m2 Wt Readings from Last 1 Encounters: 07/10/20 51.6 kg (113 lb 12.8 oz) (30 %, Z= -0.54)* * Growth percentiles are based on CDC (Girls, 2-20 Years) data. 30 %ile (Z= -0.54) based on CDC (Girls, 2-20 Years) bcrliz-zac-hhd data using vitals from 07/10/2020. Ht Readings from Last 1 Encounters: 07/10/20 1.611 m (5' 3.43 ) (38 %, Z= -0.31)* * Growth percentiles are based on CDC (Girls, 2-20 Years) data. 38 %ile (Z= -0.31) based on CDC (Girls, 2-20 Years) Nvdpnah-ind-oma data based on Stature recorded on 07/10/2020. IMMUNIZATIONS One of the best ways to insure continued good health for your child is through a program of regularimmunizations. Many contagious diseases have now been controlled by immunizations. We routinely immunize children at the time of their regular checkups. It is important for you to keep a record of all immunizations given. This information will be of value to you in the care of your child in the future. We will provide you a copy of your immunization record at each of your visits. WHAT TO EXPECT Talk with your child after school about their day, what they liked, what they didn???t like, and ifthey have any concerns. Talk with your child about what to do if they or someone they know is beingbullied. Speak with your child about what they might want to do after high school, where they might want to go to college, and if they have a career in mind. It???s a good idea to give your child chores to do around the house. Some age appropriate chores include: 1. Wash dishes 2. Prepare simple family meals 3. [place] leaves 4. Take the trash out for pick-up 5. Be responsible for feeding and watering the family pet 6. Keep bedroom and designates room in house clean 7. Vacuum individual rooms 8. Be responsible for homework 9. Help younger siblings with their chores Limit TV and electronic device time to 5-6 hours a day. Make sure that your child is active for at least 3 hours a day. Talk to your child about not using cigarettes, using drugs, or drinking alcohol. Make sure that youare familiar with the friends that they are spending time with. Teach your child the importance of delaying sexual behavior and make sure they know that they can ask you any questions that they make have about sexual behaviors. SAFETY POISON CONTROL: (PLEASE POST IN YOUR HOME OR ON YOUR PHONE) There are three ingredients for childhood injuries and accidents: the child, the object, and the environment in which the injury happens. Therefore, you must be aware of all three. Continue to be aware of poisonous hazards in your home, basement, and garage. Establish a plan for leaving the house in case of fire. Alert your children to be careful around strange animals, and to not bother any animal that is eating. Children should now know their name, address, and telephone number. Remind your child about not accepting rides or food from strangers. Helmets should be worn for anything that your child rides on that has wheels or could possibly fallout of or off of including but not limited to: bikes, skates, skate boards, scooters, horses, pogo sticks, etc. CAR SAFETY Please speak with your child about the importance of car safety. Make use that they wear seat beltsat all times while driving or being a passenger. Also speak to them about cell phone usage while driving. The texts and phone calls can WAIT. [place] law, effective May 04, 2006, says your child must be in a booster seat if they are ages 4 through 7 who weigh at least 40 pounds, unless they are 80 pounds or 4???9?? tall. DO NOT ALLOW ANYONE TO SMOKE AROUND YOUR CHILD. DIET Make sure that your child is eating breakfast in the morning school bus attendant. Encourage them to eat at least 3 servings of dairy a day and at least 5 serving of vegetables/fruits per day. Limit candy, soft drinks, and other high fat/calorie food and snacks. TEETH Your child should be established and receiving regular check-ups with a dentist. A daily routine ofbrushing at least twice a day needs to be in place by now. Frequently your child may need some supervision for proper technique. Also, your child should be flossing at least once daily. SLEEP Make sure that your child is getting at least 8-10 hours of sleep a night. Where can I go for more information? [place] [employer] ( ) www.aap.org, HealthyChildren.org www.healthychildren.org Website and free downloadable eliseo for smartphones: http://www.[employer]/ and http://www.[employer] ALL MACHINE REPAIRER documented in this encounter Progress Notes * Chago Coates DO - 07/10/2020 1:45 PM CST Adolescent Well Senior Materials Scientist Visit Name: Carmen Tse Age: [age] year old Accompanied By: Mother Chief Complaint Patient presents with ??? Well Child Check 19yr Concerns: Taking OCPs and needs refills. Not having issues with current prescription. Interim Illness: The patient returns today for routine well infant childcare provider. Illnesses since our last visit include: none Diet: Eats well balanced meals, good variety Yes Limits foods high in fat or calorie content Yes Drinks water, coffee, energy drinks Bowel movements: Normal stool Urination: normal Menstrual: Menarche Yes Age 13 On OCPs - monthly cycles. Meds: Current Outpatient Medications Medication Sig Dispense Refill ??? norgestimate-ethinyl estradiol (MONO-LINYAH) 0.25-35 MG-MCG tablet Take 1 tablet by mouth once daily 28 tablet 6 No current facility-administered medications for this visit. Allergies: No Known Allergies Social History: Home: lives with their family Education: 12th Grade. [employer] school. Doing well in school. and No teacher or parent concerns. Activities: None; likes to write and do art Drugs: alcohol intake:social drinker no tobacco use Drug use: Never Sex: 1 sexual partner and heterosexual, not currently sexually active Psych: No concerns for depression or suicidal ideation OBJECTIVE: BP 100/62 Temp 97.9 ??F (36.6 ??C) (Temporal) Ht 1.611 m (5' 3.43 ) Wt 51.6 kg (113 lb 12.8 oz) BMI19.89 kg/m2 Wt Readings from Last 3 Encounters: 07/10/20 51.6 kg (113 lb 12.8 oz) (30 %, Z= -0.54)* 02/23/19 47 kg (103 lb 9.6 oz) (16 %, Z= -1.00)* 05/18/18 49 kg (108 lb) (30 %, Z= -0.51)* * Growth percentiles are based on CDC (Girls, 2-20 Years) data. Ht Readings from Last 3 Encounters: 07/10/20 1.611 m (5' 3.43 ) (38 %, Z= -0.31)* 02/23/19 1.61 m (5' 3.39 ) (40 %, Z= -0.26)* 05/18/18 1.6 m (5' 3 ) (36 %, Z= -0.36)* * Growth percentiles are based on CDC (Girls, 2-20 Years) data. 30 %ile (Z= -0.54) based on CDC (Girls, 2-20 Years) hitbum-ifl-gcr data using vitals from 07/10/2020. 38 %ile (Z= -0.31) based on CDC (Girls, 2-20 Years) Dazmhwh-isd-iha data based on Stature recorded on 07/10/2020. Physical Exam: GENERAL: Alert, well developed, well nourished SKIN: No rash or lesions HEAD: Normocephalic EYES: PERRL, EOMI EARS: TM's WNL, canals clear NOSE: Passages clear MOUTH: OP clear, dentition appropriate, no oral lesions or excessive dental caries NECK: Thyroid not enlarged, nodes WNL, no mass or torticollis LUNGS: CTA bilaterally HEART: RRR without murmur ABD: Soft, NT,ND, NABS, no mass or HSM EXT: MAEW, FROM, no C/C/E, pulses 2+ BACK: No scoliosis NEURO: Alert, nl tone and reflexes for age, age appropriate gait : Nl female, age appropriate, no lesions or discharge, no hernia, Tristen Stage: V Recent Results (from the past 24 hour(s)) HEMOGLOBIN - POINT OF CARE (AMB) Collection Time: 07/10/20 12:00 AM Result Value Ref Range Hemoglobin POCT 16.8 (Abnormal) 11.0 - 14.0 gm/dL Impression / Plan: Carmen Tse is here for her adolescent well child check and has normal growth with good interval weight gain and normal development. - HPV #2 - Administered Flu Vaccine - Hemoglobin WNL - Dental referral for prevention - Age appropriate anticipatory guidance provided, including well child information, nutrition, wellbalanced diet, safety, and general well infant childcare provider. Patient counseled regarding avoiding alcohol, tobacco and drugs. - Return for next well child check; sooner if concerns arise. Contraception -- Patient on OCPs and not having any issues. Counseling provided on methods of contraception, risk, and benefits. Refills provided. Next Appointment: 1 year ALL MACHINE REPAIRER documented in this encounter Plan of Treatment Not on file documented as of this encounter Goals Goal Patient Goal Type Associated Problems Recent Progress Patient-Stated? Author Use safety retraint in car Lifestyle On track( 020 1:40 PM PINBALL MACHINE REPAIRER) No Irais Rios documented as of this encounter Procedures Procedure Name Priority Date/Time Associated Diagnosis Comments HEMOGLOBIN - POINT OF CARE (AMB) Routine 07/10/2020 Screening for iron deficiency anemia documented in this encounter Results * (ABNORMAL) HEMOGLOBIN - POINT OF CARE (AMB) (07/10/2020) Hemoglobin POCT 16.8(A) 11.0 - 14.0 gm/dL Blood BLOOD SPECIMEN / Unknown 07/10/2020 Rhythm Coates DO LAB - POINT OF CARE ORDERABLES documented in this encounter Visit Diagnoses Diagnosis Encounter for routine child health examination without abnormal findings- Primary Routine infant or child health check Need for vaccination Need for prophylactic vaccination and inoculation against unspecified single disease Screening for iron deficiency anemia Encounter for surveillance of contraceptive pills Surveillance of previously prescribed contraceptive pill documented in this encounter Care Teams Materials Handling Equipment Operator Relationship Specialty Start Date End Date Nata Conley MD [address] [place] [phone] PCP - General Pediatrics 02/23/19 documented as of this encounter
--- OUTSIDE RECORDS SUMMARY | 2024-08-25 04:25 | XMS_ITS | Encounter Summary ---
Author Organization [facility] Address [address] [place] [address] Care Team Providers Care Fashion Model Name Role Phone Nata Conley MD Primary Care Provider Encounter Details Date Type Department Care Team (Latest Contact Info) Description 07/21/2023 Travel Social History Tobacco Use Types Packs/Day [...] car Lifestyle On track( 020 1:40 PM EDGER TAILER) No Irais Rios documented as of this encounter Visit Diagnoses Not on filedocumented in this encounter Care Teams Fashion Model Relationship Specialty Start Date End Date Nata Conley MD [address] [place] [phone] PCP - General Pediatrics 02/23/19 documented as of this encounter
--- OUTSIDE RECORDS SUMMARY | 2024-08-25 04:25 | XMS_ITS | Encounter Summary ---
Author Organization [facility] Address [address] [place] [address] Care Team Providers Care Roll Machine Operator Name Role Phone Nata Conley MD Primary Care Provider Encounter Details Date Type Department Care Team (Latest Contact Info) Description 12/30/2023 Travel Social History Tobacco Use Types Packs/Day [...] car Lifestyle On track( 020 1:40 PM SWIMMING POOL SERVICEPERSON) No Irais Rios documented as of this encounter Visit Diagnoses Not on filedocumented in this encounter Care Teams Roll Machine Operator Relationship Specialty Start Date End Date Nata Conley MD [address] [place] [phone] PCP - General Pediatrics 02/23/19 documented as of this encounter
--- OUTSIDE RECORDS SUMMARY | 2024-08-25 04:25 | XMS_ITS | Encounter Summary ---
Author Organization [facility] Address [address] [place] [address] Care Team Providers Care Sharepoint Designer Developer Name Role Phone Nata Conley MD Primary Care Provider [phone] Encounter Details Date Type Department Care Team (Latest Contact Info) Description 10/11/2020 9:00 AM FLOOR LAYER HELPER Clinical Support [facility] - Pediatrics [address] [facility] [address] [place] [phone] Need for vaccination Social History Tobacco Use Types Packs/Day Years Used Date Smoking Tobacco: Never Smokeless Tobacco: Never Comments:non smoking househo ld Alcohol Use Standard Drinks/Week Comments No 0 (1 standard drink = 0.6 oz pur e alcohol) Sex and Gender Information Value Date Recorded Sex Assigned at Not on file Gender Identity Not on file Sexual Orientation Not on file documented as of this encounter Progress Notes * [place] - 10/11/2020 9:03 AM CST Pt here for HPV #3 R LAYER HELPER documented in this encounter Plan of Treatment Not on file documented as of this encounter Goals Goal Patient Goal Type Associated Problems Recent Progress Patient-Stated? Author Use safety retraint in car Lifestyle On track( 020 1:40 PM FLOOR LAYER HELPER) No Irais Rios documented as of this encounter Visit Diagnoses Diagnosis Need for vaccination- Primary Need for prophylactic vaccination and inoculation against unspecified single disease documented in this encounter Care Teams Sharepoint Designer Developer Relationship Specialty Start Date End Date Nata Conley MD [address] [place] [phone] PCP - General Pediatrics 02/23/19 documented as of this encounter
--- OUTSIDE RECORDS SUMMARY | 2024-08-25 04:25 | XMS_ITS | Encounter Summary ---
Author Organization [facility] Address [address] [facility] [address] Care Team Providers Care Soft Crab Shedder Name Role Phone Nata Conley MD Primary Care Provider [phone] Reason for Visit * Reason Comments Cough Ear Pain Yesterday morning Sore Throat Encounter Details Date Type Department Care Team (Late st Contact Info) Description 12/24/2023 2:30 PM CDT Office Visit [facility] [address] [phone] Provider1, [facility] Acute otitis media, unspecified otitis media type (Primary Dx) Social History Tobacco Use Types [...] Sign Reading Time Taken Comments Blood Pressure 112/62 12/24/2023 2:34 PM CDT Pulse 68 12/24/2023 2:34 PM CDT Temperature 37.1 ??C (98.7 ??F) 12/24/2023 2:34 PM CD T Respiratory Rate - - Oxygen Saturation 98% 12/24/2023 2:34 PM CDT Inhaled Oxygen Concentration - - Weight 51.7 kg (114 lb) 12/24/2023 2:34 PM CDT Height 157.5 cm (5' 2 ) 12/24/2023 2:34 PM CDT Body Mass Index 20.85 12/24/2023 2:34 PM CDT documented in this encounter Progress Notes * Taylor Tan, TELEGRAPHIC TYPEWRITER REPAIRER-AIRCRAFT ELECTRONICS TECHNICAL OFFICER - 12/24/2023 2:43 PM CDT 12/24/2023 PCP: Nata Conley MD CC: Chief Complaint Patient presents with ??? Cough ??? Ear Pain Yesterday morning ??? Sore Throat . HPI: Carmen Tse is a 23 year old female [facility] with complaints Of cough, sore throat X 6 days, ear pain, onset yesterday. Outpatient Medications Prior to Visit Medication Sig Dispense Refill ??? amoxicillin-clavulanate (Augmentin) 875-125 MG tablet Take 1 (one) tablet by mouth 2 times daily with morning and evening meal (Patient not taking: Reported on 12/24/2023) 20 tablet 0 ??? azithromycin (Zithromax) 250 [...] Onset ??? Other - Cardiac Father 1st [place] at age 42 ??? Cancer - Other [...] Pertinent information listed in HPI. Exam: BP 112/62 Pulse 68 Temp 98.7 ??F (37.1 ??C) Ht 1.575 m (5' 2 ) Wt 51.7 kg (114 lb) LMP 06/19/2022 SpO2 98% BMI 20.85 kg/m?? Physical Exam Vitals and nursing note reviewed. Constitutional: Appearance: Normal appearance. HENT: Right Ear: Hearing, tympanic membrane, ear canal and external ear normal. Left Ear: Hearing, ear canal and external ear normal. Tympanic membrane is erythematous and bulging. Nose: Nose normal. Mouth/Throat: Lips: Neal. Mouth: Mucous membranes are moist. Pharynx: Uvula midline. Tonsils: 3+ on the right. 3+ on the left. Cardiovascular: Rate and Rhythm: Normal rate and regular rhythm. Pulmonary: Effort: Pulmonary effort is normal. Breath sounds: Normal breath sounds. Lymphadenopathy: Cervical: Cervical adenopathy present. Skin: General: Skin is warm and dry. Neurological: Mental Status: She is alert. No results found for this visit on 12/24/23. Plan Impression: ICD-10-CM 1. Acute otitis media, unspecified otitis media type H66.90 Treatment: Orders Placed This Encounter ??? amoxicillin-clavulanate (Augmentin) 875-125 MG tablet Sig: Take 1 (one) tablet by mouth 2 times daily with morning and evening meal for 7 days Dispense: 14 tablet Refill: 0 There are no Patient Instructions on file for this visit. Medications Discontinued During This Encounter Medication Reason ??? amoxicillin-clavulanate (Augmentin) 875-125 MG tablet No Pharm No AVS Current Outpatient Medications Medication Sig Dispense Refill ??? amoxicillin-clavulanate (Augmentin) 875-125 MG tablet Take 1 (one) tablet by mouth 2 times daily with morning and evening meal for 7 days 14 tablet 0 ??? azithromycin (Zithromax) 250 [...] : No follow-ups on file. JESUS ALBERTO Lynch documented in this encounter Plan of Treatment Not on file documented as of this encounter Goals Goal Patient Goal Type Associated Problems Recent Progress Patient-Stated? Author Use safety retraint in car Lifestyle On track( 020 1:40 PM AUTOMOTIVE CUSTOMER EXPERIENCE ADVISOR) No Irais Rios documented as of this encounter Visit Diagnoses Diagnosis Acute otitis media, unspecified otitis media type- Primary documented in this encounter Care Teams Soft Crab Shedder Relationship Specialty Start Date End Date Nata Conley MD [address] [place] [phone] PCP - General Pediatrics 02/23/19 documented as of this encounter
--- OUTSIDE RECORDS SUMMARY | 2024-08-25 04:25 | XMS_ITS | Encounter Summary ---
Author Organization [facility] Address [address] [facility] [place] [address] Care Team Providers Care Cpht Name Role Phone Rashi Melo MD Primary Care Provider [phone] Reason for Visit * Reason Onset Date Comments Follow-up 06/27/2017 Encounter Details Date Type Department Care Team ([facility] Contact Info) Description 06/27/2017 Telephone [facility] [address] [place] [phone] Adilene Bowling, TEST DESK SUPERVISOR-CLINICAL EXERCISE SPECIALIST [address], [place] Follow-up Social History Tobacco Use Types Packs/Day Years Used Date Smoking Tobacco: Passive Smo ke Exposure - Never Smoker Smokeless Tobacco: Never Alcohol Use Standard Drinks/Week Comments No 0 (1 standard drink = 0.6 oz pur e alcohol) Sex and Gender Information Value Date Recorded Sex Assigned at Not on file Gender Identity Not on file Sexual Orientation Not on file documented as of this encounter Plan of Treatment Not on file documented as of this encounter Visit Diagnoses Not on filedocumented in this encounter Care Teams Cpht Relationship Specialty Start Date End Date Rashi Melo MD [address] [place] [phone] PCP - General Pediatrics 07/24/16 02/22/19 documented as of this encounter
--- OUTSIDE RECORDS SUMMARY | 2024-08-25 04:25 | XMS_ITS | Encounter Summary ---
Author Organization [facility] Address [address] [facility] [place] [address] Care Team Providers Care Biofuels Technology Manager Name Role Phone Nata Conley MD Primary Care Provider [phone] Reason for Visit * Reason Comments LABS ONLY Encounter Details Date Type Department Care Team (Latest Contact Info) Description 02/25/2019 10:15 AM CDT Clinical Support [facility] - Pediatrics [address] [facility] [address] [place] [phone] Encounter for other contraceptive management Social History Tobacco Use Types Packs/Day Years [...] car Lifestyle On track( 020 1:40 PM FURNACE REPAIRER) No Irais Rios documented as of this encounter Procedures Procedure Name Priority Date/Time Associated Diagnosis Comments HCG URINE QUALITATIVE - POINT OF CARE (AMB) Routine 02/25/2019 Encounter for other contraceptive management documented in this encounter Results * HCG URINE QUALITATIVE - POINT OF CARE (AMB) (02/25/2019) HCG Qual Urine Negative Negative QC Verified Yes Yes Urine URINE / Unknown 02/25/2019 Kandi Boyle IT RISK AND ASSURANCE SENIOR MANAGER-WATER TREATMENT PLANT ENGINEER LAB - POINT OF CARE ORDERABLES documented in this encounter Visit Diagnoses Diagnosis Encounter for other contraceptive management- Primary documented in this encounter Care Teams Biofuels Technology Manager Relationship Specialty Start Date End Date Nata Conley MD [address] [place] [phone] PCP - General Pediatrics 02/23/19 documented as of this encounter
--- OUTSIDE RECORDS SUMMARY | 2024-08-25 04:25 | XMS_ITS | Clinical Summary ---
Author Organization [facility] [employer] Address [address] [place] [address] Care Team Providers Care Block Handler Name Role Phone Nata Conley MD Primary Care Provider [phone] Source Comments [facility] [employer],non-owned Affiliates and Associated Physician Practices is amultiple site organization consisting of ambulatory clinics and hospital sitesin [place], [place], [place] and [place]. This disclosure is being madepursuant to the Care Everywhere program and may not contain all information available regarding this patient. Last updated 18.[facility] [employer] Allergies No known active allergies Medications * Be aware that medications may not be up to date on this document. Alwaysverify current medications with the patient. Medication Sig Dispensed Refills Start Date End Date Status norgestimate-ethiny l estradiol (MONO-LINYAH) 0.25-35 MG-MCG tablet Take 1 tablet by mouth once daily 28 tablet 6 07/10/2020 Active Additional Information Patient not taking.Reported on 06/23/2022 azithromycin (Zithromax) 250 MG tabletIndications:U pper respiratory tract infection, unspecified type Take 2 tabs today, then 1 tab daily for next 4 days 6 tablet 06/23/2022 Active Additional Information Patient not taking.Reported on 07/21/2023 fluticasone propionate (Flonase) 50 MCG/ACT nasal sprayIndications:Dy sfunction of left eustachian tube [place] 2 (two) sprays into each nostril once daily 16 g 12/30/2023 Active Active Problems Problem Noted Date Diagnosed Date [facility] (well child check) 02/24/2019 Overview (02/24/2019): 18 yo 02/23/19 (Establish care) Weight loss 02/24/2019 Overview (02/24/2019): 02/23/19 TSH, Free T4, CBC, CMP, Ammonia, Celiac panel Smoker 02/24/2019 Overview (02/24/2019): 02/23/19-Patient reports to [facility] daily since December 2017. Comments Yes Resolved Problems Problem Noted Date Diagnosed Date Resolved Date Rash 02/24/2019 03/24/2019 Immunizations Name Administration Dates Next Due INFLUENZA VACCINE, TRIV. (AF LURIA, FLUZONE TRIVALENT; 6MO+) (IIV3) 07/17/2003 DTaP VACCINE IM (6wk-6yrs) 02/08/2007,,04/13/2003,02/13,2002 FLU VACCINE TRI IIV3 SPLIT P F IM (FLUVIRIN) 06/18/2011 HEP A PEDS 2 DOSE 05/23/2015,04/22/2012,10/15/19 06 HEP A VACCINE, ADULT 10/15/2005 HEP B VACCINE, ADULT 3 DOSE 07/17/2003, 3,2002 HEP B VACCINE, PED/ADOL 07/17/2003,04/13/2003, HIB-PRP-T 4 DOSE 01/24/2004, 3,02/13/2003,12/07 Hib,HISTORIC VACCINE 01/24/2004,04/13/20 03,02/13/2003,12/07 Human Papilloma Virus Nineva lent Vaccine 10/11/2020,07/10/2020,02/23/2019 INFLUENZA 10/02/2010 INFLUENZA VACCINE, QUADR. (F LUZONE; FLULAVAL; FLUARIX; AFLURIA QUADRIVALENT; 6MO+), 0.5 ML (IIV4) 07/10/2020 MENINGOCOCAL MENINGITIS 05/23/2015 MENINGOCOCCAL CONJUGATE (MCV4P) 02/23/2019 MMR 01/25/2008,01/24/2004 PNEUMOCOCCAL PCV, HISTORIC VACCINE 04/13/2003,,2002 POLIO IPV 02/18/2007, 4,02/13/2003,12/07 Pneumococcal Pcv13 Conj 04/13/2003,02/13/2003, TDAP (7yrs+) 05/23/2015 VARICELLA 05/31/2015,04/22/2012,10/16/2003 Family History Medical History Relation Name Comments CAD (Coronary Artery Disease) Father Cancer - Other Father Renal Hyperlipidemia Father Hypertension Father Other - Cardiac Father [place] 42 Other - Cardiac Maternal Grandfather dece ased at age 46 from V-fib Other Maternal Grandmother PVD Asthma Neg Hx Autoimmune Disease Neg Hx Bipolar Disorder Neg Hx Cancer - Breast Neg Hx Cancer - Colon Neg Hx Cancer - Ovarian Neg Hx Cancer - Pancreatic Neg Hx Cancer - Prostate Neg Hx Depression Neg Hx Eczema Neg Hx Migraine Neg Hx Osteoporosis Neg Hx Seizures Neg Hx Sudd. <30 Neg Hx Thyroid Disease Neg Hx Ulcerative Colitis Neg Hx Relation Name Status Comments Father Alive Maternal Grandfather Maternal Grandmother Alive Mother Alive Social History Tobacco Use Types Packs/Day Years Used Date Smoking Tobacco: Never Smokeless Tobacco: Never Tobacco Cessation:Counseling Given: Not Answered Comments:non smoking household Alcohol Use Standard Drinks/Week Comments Yes 0 (1 standard drink = 0.6 oz pur e alcohol) social PHQ-2 Answer Date Recorded Patient Health Questionnaire-2 Score 0 12/30/2023 Comments Yes Sex and Gender Information Value Date Recorded Sex Assigned at Not on file Gender Identity Not on file Sexual Orientation Not on file Last Filed Vital Signs Vital Sign Reading Time Taken Comments Blood Pressure 125/74 04/16/2024 8:10 PM CDT Pulse 85 04/16/2024 8:10 PM CDT Temperature 37 ??C (98.6 ??F) 04/16/2024 5:04 PM CDT Respiratory Rate 20 04/16/2024 8:10 PM CDT Oxygen Saturation 97% 04/16/2024 8:10 PM CDT Inhaled Oxygen Concentration - - Weight 46.7 kg (103 lb) 04/16/2024 5:04 PM CDT Height 157.5 cm (5' 2 ) 04/16/2024 5:04 PM CDT Body Mass Index 18.84 04/16/2024 5:04 PM CDT Plan of Treatment Health Maintenance Due Date Last Done Comments PAP SMEAR 2002 HIV SCREENING 2017 CHLAMYDIA/GONORRHEA SCREENING 2018 HEPATITIS C SCREENING 10/09/2020 COVID-19 VACCINE ( season) 2024 02/19/2021, 01/29/2021 INFLUENZA VACCINE (#1) 2024 , 06/18/2011, 10/02/2010, Additional history exists DTAP/TDAP/TD VACCINES (7 - Td or Tdap) 05/23/2025 05/23/2015, 02/08/2007, 04/15/2004, Additional history exists ZOSTER VACCINE (1 of 2) 2052 Respiratory Syncytial Virus (RSV) Vaccine Pt: or over 60 yrs (1 - 1-dose 75+ series) 2077 PNEUMOCOCCAL VACCINE Aged Out 04/13/2003, 04/13/2003, 02/13/2003, Additional history exists No longer eligible based on patient's age to complete this topic HEPATITIS B VACCINE Completed 07/17/2003, 07/17/2003, 04/13/2003, Additional history exists HIB VACCINE Completed 01/24/2004, 01/05, 04/13/2003, Additional history exists MENINGOCOCCAL VACCINE Completed 02/23/2019, 015 HPV VACCINE Completed 10/11/2020, 11/2019, 02/23/2019 DEPRESSION SCREENING Completed 12/24/2023, 06/23/20 22 Goals Goal Patient Goal Type Associated Problems Recent Progress Patient-Stated? Author Use safety retraint in car Lifestyle On track( 020 1:40 PM GARMENT EXAMINER) Irais Car Care Teams Block Handler Relationship Specialty Start Date End Date Nata Conley MD [address] [place] [address] PCP - General Pediatrics 02/23/19
--- OUTSIDE RECORDS SUMMARY | 2024-08-25 04:25 | XMS_ITS | Encounter Summary ---
Author Organization [facility] Address [address] [address] Care Team Providers Care Linecasting Machine Keyboard Operator Name Role Phone Rashi Melo MD Primary Care Provider [phone] Reason for Visit * Reason Comments Congestion Cough Fever Headache Nausea Diarrhea Encounter Details Date Type Department Care Team ([facility] st Contact Info) Description 05/18/2018 7:00 PM CDT Office Visit [facility] [address] [phone] Provider, [facility] Acute maxillary sinusitis, recurrence not specified (Primary Dx) Social History Tobacco Use Types Packs/Day Years Used Date Smoking Tobacco: Never Smokeless Tobacco: Never Tobacco Cessation:Counseling Given: No Comments:non smoking household Alcohol Use Standard Drinks/Week Comments No 0 (1 standard drink = 0.6 oz pur e alcohol) Sex and Gender Information Value Date Recorded Sex Assigned at Not on file Gender Identity Not on file Sexual Orientation Not on file documented as of this encounter Last Filed Vital Signs Vital Sign Reading Time Taken Comments Blood Pressure 112/60 05/18/2018 7:08 PM CDT Pulse 88 05/18/2018 7:08 PM CDT Temperature 36.6 ??C (97.8 ??F) 05/18/2018 7:08 PM CD T Respiratory Rate 16 05/18/2018 7:08 PM CDT Oxygen Saturation 98% 05/18/2018 7:08 PM CDT Inhaled Oxygen Concentration - - Weight 49 kg (108 lb) 05/18/2018 7:08 PM CDT Height 160 cm (5' 3 ) 05/18/2018 7:08 PM CDT Body Mass Index 19.13 05/18/2018 7:08 PM CDT Body Mass Index Percentile 34.67% 05/18/2018 7:0 8 PM CDT Growth Chart: [facility] (Girls, 2- 20 Years) documented in this encounter Patient Instructions * Patient Instructions* Rene Buciol Lucius SUPERVISOR LABORATORY-ADMINISTRATION PROFESSIONAL - 05/18/2018 7:32 PM CDT Images from the original note were not included. -Take and finish your prescriptions as directed. -If not already using, please start nasal saline wash, either Neti Pot or Sinus Rinse DAILY or a saline nasal spray 3-4 times a day. -Use guaifenesin expectorants (Maximum Strength Mucinex, Robitussin, store brand) to loosen secretions. -Honey can be used to help with cough. The honey (2.5 to 5 ml [0.5 to 1 teaspoon]) can be given straight or diluted in liquid (eg, tea, juice) -For cough you can use dextromethorphan (Delsym syrup, Robitussin cough capsules or store brand). Dextromethorphan is considered safe for and breast feeding women. -Increase fluid intake: drink 2 liters (2 quarts) of non-caffeinated, non- alcoholic beverages daily, drinking alcohol causes nasal and sinus membranes to swell -Steam inhalation and warm compresses to face often help relieve pressure -Avoid allergens and excessively dry heat -Sleep with head of bed elevated to encourage drainage. -Use of a humidifier if environment is heated by dry forced - air system -Avoid smoking, second-hand smoke and air pollutants. -You may try decongestants such as Sudafed (purchase at pharmacy) or Sudafed PE for congestion relief. Decongestants can keep you awake at night. Do not use decongestants if you have high blood pressure or if you are -If you begin to run a fever or if symptoms worsen, such as difficulty breathing or shortness of breath, seek medial attention as soon as possible. -If you are not improving or worsening, or develop facial swelling,in the next 3-5 days you must RETURN to the clinic, go to your PCP, or Urgent Care/ER to be SEEN and reevaluated. No further prescriptions or refills will be given by phone without another evaluation Sinusitis in Children WHAT YOU NEED TO KNOW: What is sinusitis? Sinusitis is inflammation or infection of your child's sinuses. It is most oftencaused by a virus. Acute sinusitis may last up to 30 days. Chronic sinusitis lasts longer than 90 days. Recurrent sinusitis means your child has sinusitis 3 times in 6 months or 4 times in 1 year. What increases my child's risk for sinusitis? ?? A past episode of sinusitis ?? Allergies ?? Group daycare or child life therapist What are the signs and symptoms of sinusitis? ?? Fever ?? Pain, pressure, redness, or swelling around the forehead, cheeks, or eyes ?? Thick yellow or green discharge from your child's nose ?? Tenderness when you touch your child's face over his or her sinuses ?? Dry cough that happens mostly at night or when your child lies down ?? Sore throat or bad breath ?? Headache and face pain that is worse when your child leans forward ?? Tooth pain or pain when your child chews How is sinusitis diagnosed? Your child's healthcare provider will examine your child and ask about his or her symptoms. The provider will check inside your child's nose using a nasal speculum. This is a small tool used to open the nostrils. A sample of the mucus from your child's nose may show whatgerm is causing his or her infection. How is sinusitis treated? Your child's symptoms may go away on their own. Your child's healthcare provider may recommend watchful waiting for 3 days before starting antibiotics. Your child may need any of the following: ?? Acetaminophen decreases pain and fever. It is available without a doctor's order. Ask how much to give your child and how often to give it. Follow directions. Read the labels of all other medicines your child uses to see if they also contain acetaminophen, or ask your child's doctor or pharmacist. Acetaminophen can cause liver damage if not taken correctly. ?? NSAIDs , such as ibuprofen, help decrease swelling, pain, and fever. This medicine is available with or without a doctor's order. NSAIDs can cause stomach bleeding or kidney problems in certain people. If your child takes blood thinner medicine, always ask if NSAIDs are safe for him. Always readthe medicine label and follow directions. Do not give these medicines to children under 6 months of age without direction from your child's healthcare provider. ?? Nasal steroid sprays may help decrease inflammation in your child's nose and sinuses. ?? Antibiotics help treat or prevent a bacterial infection. How can I manage my child's symptoms? ?? Have your child breathe in steam. Heat a bowl of water until you see steam. Have your child leanover the bowl and make a tent over his or her head with a large towel. Tell your child to breathe deeply for about 20 minutes. Do not let your child get too close to the steam. Do this 3 times a day.Your child can also breathe deeply when he or she takes a hot shower. ?? Help your child rinse his or her sinuses. Use a sinus rinse device to rinse your child's nasal passages with a saline (salt water) solution or distilled water. Do not use tap water. This will helpthin the mucus in your child's nose and rinse away pollen and dirt. It will also help reduce swelling so your child can breathe normally. Ask your child's healthcare provider how often to do this. ?? Have your older child sleep with his or her head elevated. Place an extra pillow under your child's head before he or she goes to sleep to help the sinuses drain. ?? Give your child liquids as directed. Liquids will thin the mucus in your child's nose and help it drain. Ask your child's healthcare provider how much liquid to give your child and which liquids are best for him or her. Avoid drinks that contain caffeine. How can I help prevent the spread of germs? Wash your and your child's hands often with soap and water. Encourage your child to wash his or her hands after using the bathroom, coughing, or sneezing. When should I seek immediate care? ?? Your child's eye and eyelid are red, swollen, and painful. ?? Your child cannot open his or her eye. ?? Your child has vision changes, such as double vision. ?? Your child's eyeball bulges out or your child cannot move his or her eye. ?? Your child is more sleepy than normal, or you notice changes in his or her ability to think, move, or talk. ?? Your child has a stiff neck, a fever, or a bad headache. ?? Your child's forehead or scalp is swollen. When should I contact my healthcare provider? ?? Your child's symptoms get worse after 5 to 7 days. ?? Your child's symptoms do not go away after 10 days. ?? Your child has nausea and is vomiting. ?? Your child's nose is bleeding. ?? You have questions or concerns about your child's condition or care. CARE AGREEMENT: You have the right to help plan your child's care. Learn about your child's health condition and how it may be treated. Discuss treatment options with your child's caregivers to decide what care you want for your child. The above information is an home hospice aide only. It is not intended as medicaladvice for individual conditions or treatments. Talk to your doctor, nurse or pharmacist before following any medical regimen to see if it is safe and effective for you. ?? 2017 [employer] Information is for End User's use only and may not be sold, redistributed or otherwise used for commercial purposes. All illustrations and images included in CareNotes?? are the copyrighted property of [employer] or [employer]. documented in this encounter Progress Notes * Candi Bucio APRN-CNP - 05/18/2018 7:08 PM CDT Subjective: History was provided by patient and mother Carmen Tse is a 17 y.o. female who presents for evaluation: Chief Complaint Patient presents with ??? Congestion ??? Cough ??? Fever ??? Headache ??? Nausea ??? Diarrhea Primary Care Physician is Rashi Melo MD. Symptoms include clear/yellow nasal/postnasal drainage. Pt also reports sinus congestion/pressure, cough with mucus phlegm causing her not to sleep well, nausea in the morning, diarrhea yesterday x2 episodes, but none today, sore throat rating 4/10, headache, body aches, chills, and sweats Pt reports fever on Thursday05/16/18 at highest of 102.5F, but none since. Pt denies any ear pain, abdominal pain, vomiting, or dental pain. Pt reports good appetite. Pt reports exposure to sick contacts at home. Onset of symptoms was 1 week ago, unchanged since that time. She is drinking plenty of fluids. Evaluation to date: none. Treatment to date: Ibuprofen, OTC cold medication for sinus and congestion No Known Allergies Outpatient Prescriptions Marked as Taking for the 05/18/18 encounter (Office Visit) with Provider, Mandi Elizalde Medication Sig ??? benzonatate (TESSALON) 200 MG capsule Take 1 capsule by mouth 3 times daily as needed for Cough ??? amoxicillin-clavulanate (AUGMENTIN) 875-125 MG tablet Take 1 tablet by mouth 2 times daily withmorning and evening meal for 10 days ??? fluticasone propionate (FLONASE) 50 MCG/ACT nasal spray [place] 2 sprays into each nostril once daily Past Medical History: Diagnosis Date ??? NEGATIVE PAST MEDICAL HISTORY - SEE PROBLEM LIST Medications reviewed. Review of Systems Pertinent items are noted in HPI Constitutional: Positive for fevers on Thursday at highest of 102.5F, but none since, chills, sweats Eyes: Negative Ears, nose, mouth, and throat: Positive for clear/yellow nasal/postnasal drainage, sinus congestion/pressure, and sore throat rating 4/10. Respiratory: Positive for acute cough with mucus phlegm causing her not to sleep well, Cardiovascular: Negative Gastrointestinal: Positive for nausea in the morning, diarrhea yesterday x2 episodes, but none today Genitourinary:Negative Skin: Negative Musculoskeletal:Positive for body aches Neurological: Positive for headaches Objective: BP 112/60 (BP SITE: LEFT ARM, BP POSITION: SITTING, BP CUFF SIZE: 11) Pulse 88 Temp 97.8 ??F (36.6 ??C) (Oral) Resp 16 Ht 1.6 m (5' 3 ) Wt 49 kg (108 lb) SpO2 98% BMI 19.13 kg/m2 Skin: Physical Exam Exam General appearance: alert, cooperative, no distress, oriented to person, place, and time, wellappearing Head: normocephalic, without trauma Eyes: sclera and conjunctiva clear, EOMI and PERRLA, lids normal Ears: canals clear, bilateral tympanic membranes with clear fluid noted behind, no erythema or bulging, hearing intact to voice Nose: nares open; no septal deviation is noted, mucosa erythematous and swollen, maxillary tenderness bilaterally, no frontal or ethmoid tenderness, no facial edema Throat: lips, mucosa, and tongue normal; teeth and gums normal, mild oropharyngeal erythema, tonsillar hypertrophy 2+, no exudates present, uvula midline, postnasal drainage noted Neck: range of motion is intact, no masses Nodes: no cervical adenopathy Lungs: breath sounds normal and symmetric; lung sounds clear to auscultation bilaterally, no rales or wheezes Heart: regular rhythm, normal S1 and S2, without murmurs, gallops or rubs Abdomen: soft without mass, non-tender, with normal bowel sounds Skin: no rashes or other abnormalities are noted Neurologic: mental status normal; alert and oriented X 3 Assessment: . Encounter Diagnoses Name Primary? Acute maxillary sinusitis, recurrence not specified Yes Plan: Discussed the dx and tx of sinusitis. Suggested symptomatic OTC remedies. Antibiotics per orders. Nasal steroids per orders. RTC prn. Pt encouraged to start taking Claritin daily -Take and finish your prescriptions as directed. -If not already using, please start nasal saline wash, either Neti Pot or Sinus Rinse DAILY or a saline nasal spray 3-4 times a day. -Use guaifenesin expectorants (Maximum Strength Mucinex, Robitussin, store brand) to loosen secretions. -Honey can be used to help with cough. The honey (2.5 to 5 ml [0.5 to 1 teaspoon]) can be given straight or diluted in liquid (eg, tea, juice) -For cough you can use dextromethorphan (Delsym syrup, Robitussin cough capsules or store brand). Dextromethorphan is considered safe for and breast feeding women. -Increase fluid intake: drink 2 liters (2 quarts) of non-caffeinated, non- alcoholic beverages daily, drinking alcohol causes nasal and sinus membranes to swell -Steam inhalation and warm compresses to face often help relieve pressure -Avoid allergens and excessively dry heat -Sleep with head of bed elevated to encourage drainage. -Use of a humidifier if environment is heated by dry forced - air system -Avoid smoking, second-hand smoke and air pollutants. -You may try decongestants such as Sudafed (purchase at pharmacy) or Sudafed PE for congestion relief. Decongestants can keep you awake at night. Do not use decongestants if you have high blood pressure or if you are -If you begin to run a fever or if symptoms worsen, such as difficulty breathing or shortness of breath, seek medial attention as soon as possible. -If you are not improving or worsening, or develop facial swelling,in the next 3-5 days you must RETURN to the clinic, go to your PCP, or Urgent Care/ER to be SEEN and reevaluated. No further prescriptions or refills will be given by phone without another evaluation. Continue to follow up with Rashi Melo MD as directed. After Visit Summary reviewed with patient. The caregiver today indicates understanding of these issues and agrees with the plan. Patient discharged to Home .JESUS ALBERTO Tiwari 05/18/2018 7:38 PM Orders Placed This Encounter ??? STREP A SCREEN ??? INFLUENZA A+B - POINT OF CARE (AMB) ??? benzonatate (TESSALON) 200 MG capsule Sig: Take 1 capsule by mouth 3 times daily as needed for Cough Dispense: 30 capsule Refill: 0 ??? amoxicillin-clavulanate (AUGMENTIN) 875-125 MG tablet Sig: Take 1 tablet by mouth 2 times daily with morning and evening meal for 10 days Dispense: 20 tablet Refill: 0 ??? fluticasone propionate (FLONASE) 50 MCG/ACT nasal spray Sig: [place] 2 sprays into each nostril once daily Dispense: 1 bottles Refill: 0 Recent Results (from the past 24 hour(s)) STREP A SCREEN Collection Time: 05/18/18 7:30 PM Result Value Ref Range Strep A Rapid Negative Negative Strep A INTERNAL CONTROL Present Lot Number [id number] Expiration Date 10/28/2019 INFLUENZA A+B - POINT OF CARE (AMB) Collection Time: 05/18/18 7:30 PM Result Value Ref Range Influenza A Ag Negative Negative Influenza B Ag Negative Negative Influenza Control present NEGATIVE - POSITIVE Influenza Lot# [id number] Influenza Expir Date 10/17/2019 documented in this encounter Plan of Treatment Not on file documented as of this encounter Procedures Procedure Name Priority Date/Time Associated Diagnosis Comments STREP A SCREEN - POINT OF CARE (AMB) STL Routine 05/18/2018 7:30 PM CDT Acute maxillary sinusitis, recurrence not specified INFLUENZA A+B - POINT OF CARE (AMB) Routine 05/18/2018 7:30 PM CDT Acute maxillary sinusitis, recurrence not specified documented in this encounter Results * INFLUENZA A+B - POINT OF CARE (AMB) (05/18/2018 7:30 PM CDT) Influenza A Antigen Rapid Negative Negative Influenza B Antigen Rapid Negative Negative Influenza Internal Control present NEGATIVE - POSITIVE Influenza Lot Number [id number] Influenza Expiration Date 10/17/2019 Other NASOPHARYNGEAL SWAB / Unknown 05/18/2018 7:30 PM CDT Candi Kan Bucio SUPERVISOR LABORATORY-ADMINISTRATION PROFESSIONAL LAB - POIN T OF CARE ORDERABLES * STREP A SCREEN (05/18/2018 7:30 PM CDT) Strep A Rapid POCT Negative Negative Strep A Internal Control Present Lot # [id number] Expiration Date 10/28/2019 Throat ENTIRE THROAT (SURFACE REGION OF NECK) / Unknown 05/18/2018 7:30 PM CDT Candi Coronaeal SUPERVISOR LABORATORY-ADMINISTRATION PROFESSIONAL LAB - POIN T OF CARE ORDERABLES documented in this encounter Visit Diagnoses Diagnosis Acute maxillary sinusitis, recurrence not specified- Primary documented in this encounter Care Teams Linecasting Machine Keyboard Operator Relationship Specialty Start Date End Date Rashi Melo MD [address] [place] [address] PCP - General Pediatrics 07/24/16 02/22/19 documented as of this encounter
--- OUTSIDE RECORDS SUMMARY | 2024-08-25 04:25 | XMS_ITS | Encounter Summary ---
Author Organization [facility] Address [address] [place] [address] Care Team Providers Care Corporate Librarian Name Role Phone Nata Conley MD Primary Care Provider [phone] Reason for Visit * Reason Comments Well Child Check 18 yo SKIN PROBLEM x1 year, progressive ly dry, rough patch of skin on neck Thyroid Problem x1 year, appetite ch shilpi, difficulty sleeping, weight loss, change in bowel habits Encounter Details Date Type Department Care Team (Late st Contact Info) Description 02/23/2019 1:00 PM CDT Office Visit [facility] Medical [facility] - Pediatrics [address] [place] [phone] Kandi Boyle, PRODUCTION ASSISTANT-[facility] [address] [place] [address] Well adolescent visit (Primary Dx); Screening for deficiency anemia; Rash; Weight loss; Need for vaccination Social History Tobacco Use [...] Sign Reading Time Taken Comments Blood Pressure 92/68 02/23/2019 1:06 PM CDT Pulse - - Temperature 36.7 ??C (98.1 ??F) 02/23/2019 1:06 PM CD T Respiratory Rate - - Oxygen Saturation - - Inhaled Oxygen Concentration - - Weight 47 kg (103 lb 9.6 oz) 02/23/2019 1:06 PM CDT Height 161 cm (5' 3.39 ) 02/23/2019 1:06 PM CDT Body Mass Index 18.13 02/23/2019 1:06 PM CDT Body Mass Index Percentile 16.07% 02/23/2019 1:0 6 PM CDT Growth Chart: CDC (Girls, 2- 20 Years) documented in this encounter Patient Instructions * Patient Instructions* Irais Rios - 02/23/2019 1:10 PM CDT YOUR GROWING CHILD: 15 TO 17 YEARS Child???s Name: Carmen Tse Today???s Date: 02/23/2019 BP 92/68 (BP SITE: LEFT ARM, BP POSITION: SITTING) Temp 98.1 ??F (36.7 ??C) (Temporal) Ht 1.61 m (5' 3.39 ) Wt 47 kg (103 lb 9.6 oz) BMI 18.13 kg/m2 Wt Readings from Last 1 Encounters: 02/23/19 47 kg (103 lb 9.6 oz) (16 %, Z= -1.00)* * Growth percentiles are based on CDC 2-20 Years data. 16 %ile (Z= -1.00) based on CDC 2-20 Years aueesu-bct-zgc data using vitals from 02/23/2019. Ht Readings from Last 1 Encounters: 02/23/19 1.61 m (5' 3.39 ) (40 %, Z= -0.26)* * Growth percentiles are based on CDC 2-20 Years data. 40 %ile (Z= -0.26) based on CDC 2-20 Years wmpymcs-wda-jam data using vitals from 02/23/2019. IMMUNIZATIONS One of the best ways to [...] dishes 2. Prepare simple family meals 3. Munger leaves 4. Take the trash out for [...] The texts and phone calls can WAIT. [place] and [place] law, effective May 04, 2006, says your child must be in a booster seat if they are ages 4 through 7 who weigh at least 40 pounds, unless they are 80 pounds or 4???9?? tall. DO NOT ALLOW ANYONE TO SMOKE AROUND YOUR CHILD. DIET Make sure that your child is eating breakfast in the morning school administrator. Encourage them to eat at least 3 [...] Where can I go for more information? [place] [employer] Pediatric[employer] ( ) www.aap.org, HealthyChildren.org www.healthychildren.org Website and free downloadable eliseo for smartphones: http://www.Estadeboda.Libretto/ and http://www.Teamleader/ documented in this encounter Progress Notes * Kandi Boyle, PRODUCTION ASSISTANT-CODING CONSULTANT - 02/23/2019 1:13 PM CDT Adolescent Well [employer] Visit Name: Carmen Tse Age: [age] year old Accompanied By: Mother, Sister, Friend Chief Complaint Patient presents with ??? Well Child Check 18 yo ??? SKIN PROBLEM x1 year, progressively dry, rough patch of skin on neck ??? Thyroid Problem x1 year, appetite change, difficulty sleeping, weight loss, change in bowel habits Concerns: Carmen is a 18 year old new patient who presents today to establish care and for a Well Adolescent. Concerns for this visit are below: -Brown dry rash to front of next x 1 year. The rash started off small and has progressively gotten bigger. The rash does bother her. She has not tried any treatment. -Mother reports she has recently lost weight within the last year. Her appetite has been less but she is still eating at least 2-3 meals per day. She normally does not need breakfast. A typical meal includes a soup and salad or sandwich, pasta, iced coffee or tea. Her bowel movement can go from loose to more firm depending on what she eats. ( When taking with patient alone, patient reported that she started Juling daily since December 2017. -Patient is requesting control. She was previously on control and was not compliant. -Patient reports that she frequently gets fatigued intermittently. Denies sore throat or fever. Patient reports she occasionally has headaches that are relieved with Ibuprofen. Diet: Eats well balanced meals, good variety Yes Limits foods high in fat or calorie content Yes Hearing/Vision: No concerns Interim Illness: The patient returns today for routine well child care provider. Illnesses since our last visit include: Recent URI symptoms Menstrual: Menarche Yes Age, Regular Meds: Current Outpatient Prescriptions Medication Sig Dispense Refill ??? benzonatate (TESSALON) 200 MG capsule Take 1 capsule by mouth 3 times daily as needed for Cough(Patient not taking: Reported on 02/23/2019) 30 capsule 0 ??? fluticasone propionate (FLONASE) 50 MCG/ACT nasal spray Darden 2 sprays into each nostril once daily (Patient not taking: Reported on 02/23/2019) 1 bottles 0 No current facility-administered medications for this visit. Allergies: No Known Allergies Home: lives with their family Education: 10th Grade. Doing well in school. Grade in school: Drugs: Drinks alcohol. Patient reports Mother allows her to drink in the house. Tobacco use Patient has been Juling daily x 1 year. Caffeine use regular Drug use: Denies drug use Sex: Bisexual, patient currently has a boyfriend of 2 years but has sex with females. Reports usingprotection Psych: History of depression. Was seeing a school counselor. Patient reports no current thought of suicide or depression. OBJECTIVE: BP 92/68 (BP SITE: LEFT ARM, BP POSITION: SITTING) Temp 98.1 ??F (36.7 ??C) (Temporal) Ht 1.61 m (5' 3.39 ) Wt 47 kg (103 lb 9.6 oz) BMI 18.13 kg/m2 Wt Readings from Last 3 Encounters: 02/23/19 47 kg (103 lb 9.6 oz) (16 %, Z= -1.00)* 05/18/18 49 kg (108 lb) (30 %, Z= -0.51)* 07/13/17 59.4 kg (131 lb) (77 %, Z= 0.73)* * Growth percentiles are based on CDC 2-20 Years data. Ht Readings from Last 3 Encounters: 02/23/19 1.61 m (5' 3.39 ) (40 %, Z= -0.26)* 05/18/18 1.6 m (5' 3 ) (36 %, Z= -0.36)* 07/13/17 1.575 m (5' 2 ) (26 %, Z= -0.63)* * Growth percentiles are based on CDC 2-20 Years data. 16 %ile (Z= -1.00) based on CDC 2-20 Years imjuxa-xpx-dcb data using vitals from 02/23/2019. 40 %ile (Z= -0.26) based on CDC 2-20 Years higczeh-ohr-sbw data using vitals from 02/23/2019. Physical Exam: GENERAL: Alert, well developed, well nourished SKIN: Hypopigmented area to front of neck. Plaque like. No no signs of infection. HEAD: Normocephalic EYES: PERRL, EOMI, fundi grossly normal, red reflex bilat EARS: TM's WNL, canals clear NOSE: Passages [...] lesions or discharge, no hernia, Tristen Stage: IV Impression / Plan: 1. Well child with normal growth and development. Oral and written anticipatory guidance provided including well child information, nutrition, well balanced diet, safety,and general well child care provider. Patient counseled regarding avoiding alcohol, tobacco and drugs. Parent and patient instructed to call if any questions, concerns, problems or other health issues. Counseling on Juling the risks and complication of smoking, along with information on cessation, protection with sexual activity, and contraception options provided. -Hemoglobin 14.4, within normal range -Lipid panel within normal range Plan per orders. Menactra, HPV Immunizations benefits and risks discussed including site soreness, fever and allergic reaction. 2. Skin Lesion. Etiology unclear. Do to the persist of the lesion, will refer to Dermatology for further evaluation. Referral and Dermatology contact information give to Mother to schedule appointment. 3. Request for Contraception. Counseling provided on methods of contraception, risk, and benefits. Unable to obtain urine HCG. Patient instructed to come back when able to produce urine in office. Patient did attempt to add water to specimen when in office. If patient returns, will collect specimenin office. Patient currently Juling daily. 4. Weight Loss/Fatigue. Patient reports she is eating 2-3 meal per day. Patient has been Juling x 1year around the time when the weight loss started to occur. Etiology unclear. Will send for TSH, Free T4, CBC, CMP, Ammonia, Celiac Panel. Will follow up with results. Next Appointment: 1 year * Irais Rios - 02/23/2019 1:00 PM CDT Carmen Tse is a 18 year old female here for a 18 [facility] to establish care. documented in this encounter Plan of Treatment Not on file documented as of this encounter Goals Goal Patient Goal Type Associated Problems Recent Progress Patient-Stated? 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) No Irais Rios documented as of this encounter Procedures Procedure Name Priority Date/Time Associated Diagnosis Comments CELIAC DISEASE COMPREHENSIVE Routine 02/23/2019 3:52 PM CDT Weight loss CBC W AUTO DIFFERENTIAL Routine 02/23/2019 3:52 PM CDT Weight loss COMPREHENSIVE METABOLIC PANEL Routine 02/23/2019 3:52 PM CDT Weight loss AMMONIA Routine 02/23/2019 3:52 PM CDT Weight loss TSH Routine 02/23/2019 3:52 PM CDT Weight loss T4 TOTAL Routine 02/23/2019 3:52 PM CDT Weight loss HEMOGLOBIN - POINT OF CARE (AMB) STL Routine 02/23/2019 Screening for deficiency anemia LIPID PROFILE+GLUCOSE - POINT OF CARE (AMB) Routine 02/23/2019 Well adolescent visit documented in this encounter Results * CELIAC DISEASE COMPREHENSIVE (02/23/2019 3:52 PM CDT) Interpretation see note [facility] Comment: No serological evidence of celiac disease. tTG IgA may normalize in individuals with celiac disease who maintain a gluten-free diet. Consider HLA DQ2 and DQ8 testing to rule out celiac disease. Celiac disease is extremely rare in the absence of DQ2 or DQ8. TTG Antibody IgA 1 <4 U/mL [facility] Comment: ?Value ??Interpretation ?<4 U/mL: No Antibody Detected ? >or=4 U/mL: Antibody Detected IgA 459 81 - 463 mg/dL [facility] Comment: Test Performed at: [facility]/[address] ??[phone] EDIL GRIJALVA MD,PHD Blood BLOOD SPECIMEN / Unknown 02/23/2019 3:52 PM CDT 02/23/2019 3:55 PM CDT Kandi Boyle PRODUCTION ASSISTANT-CODING CONSULTANT LAB - CHEMISTRY ORDERABLES Performing Organization Address [facility] Co de Phone Number [facility] [phone] [place] [address] * AMMONIA (02/23/2019 3:52 PM CDT) Pathologist [facility] Ammonia 48 < OR = 72 umol/L [facility] Comment: Test Performed at: [facility] ??[phone] ADRIANNA HERRING DO,MPH Blood BLOOD SPECIMEN / Unknown 02/23/2019 3:52 PM CDT 02/23/2019 3:55 PM CDT Kandi Boyle PRODUCTION ASSISTANT-[facility] LAB - CHEMISTRY ORDERABLES Performing Organization Address [facility] de Phone Number [facility] [address] [place] [address] * (ABNORMAL) COMPREHENSIVE METABOLIC PANEL (02/23/2019 3:52 PM CDT) Pathologist [facility] Glucose 119(H) 65 - 99 mg/dL [facility] Comment: ? Fasting reference interval For someone without known diabetes, a glucose value between 100 and 125 mg/dL is consistent with prediabetes and should be confirmed with a follow-up test. BUN 11 7 - 20 mg/dL [facility] Creatinine 0.55 0.50 - 1.00 mg/dL [facility] Comment: Patient is <18 years old. Unable to calculate eGFR. BUN/Creatinine Ratio NOT APPLICABLE 6 - 22 (calc) [facility] Sodium 136 135 - 146 mmol/L [facility] Potassium 3.9 3.8 - 5.1 mmol/L [facility] Chloride 102 98 - 110 mmol/L [facility] CO2 25 20 - 32 mmol/L [facility] Calcium 10.1 8.9 - 10.4 mg/dL [facility] Protein Total 7.4 6.3 - 8.2 g/dL [facility] Albumin 4.8 3.6 - 5.1 g/dL [facility] Globulin Total 2.6 2.0 - 3.8 g/dL (calc) [facility] Albumin/Globuli n Ratio 1.8 1.0 - 2.5 (calc) [facility] Bilirubin Total 0.5 0.2 - 1.1 mg/dL [facility] Alkaline Phosphatase 68 47 - 176 U/L [facility] AST 15 12 - 32 U/L [facility] ALT 12 5 - 32 U/L [facility] Comment: Test Performed at: [facility] [address] [place], [place] ??[phone] ADRIANNA HERRING DO,MPH Blood BLOOD SPECIMEN / Unknown 02/23/2019 3:52 PM CDT 02/23/2019 3:55 PM CDT Kandi GRANDA LAB - CHEMISTRY ORDERABLES Performing Organization Address [facility] Co de Phone Number [facility] [phone] [place] [address] * (ABNORMAL) CBC WITH DIFFERENTIAL (02/23/2019 3:52 PM CDT) White Blood Cell Count 5.5 4.5 - 13.0 Thousand/u L [facility] RBC 4.93 3.80 - 5.10 Million/uL [facility] Hemoglobin 13.3 11.5 - 15.3 g/dL [facility] Hematocrit 40.7 34.0 - 46.0 % [facility] MCV 82.6 78.0 - 98.0 fL [facility] MCH 27.0 25.0 - 35.0 pg [facility] MCHC 32.7 31.0 - 36.0 g/dL [facility] RDW 12.1 11.0 - 15.0 % [facility] Platelet Count 312 140 - 400 Thousand/u L [facility] MPV 10.1 7.5 - 12.5 fL [facility] Neutrophil Absolute 3256 1800 - 8000 cells/uL [facility] Lymphocytes Absolute 1986 1200 - 5200 cells/uL [facility] Absolute Monocytes 198(L) 200 - 900 cells/uL [facility] Eosinophils Absolute 22 15 - 500 cells/uL [facility] Basophils Absolute 39 0 - 200 cells/uL [facility] Granulocytes % 59.2 % [facility] Lymphocytes % 36.1 % [facility] Monocytes % 3.6 % [facility] Eosinophils % 0.4 % [facility] Basophils % 0.7 % [facility] Comment: Test Performed at: [facility] [address] [place], [place] ??[phone] ADRIANNA HERRING DO,MPH Blood BLOOD SPECIMEN / Unknown 02/23/2019 3:52 PM CDT 02/23/2019 3:55 PM CDT Kandi DAVILACODING CONSULTANT LAB - HEMATOLOG Y ORDERABLES Performing Organization Address [facility]/ZIP Co de Phone Number [facility] [phone] [place] [phone] * T4 TOTAL (02/23/2019 3:52 PM CDT) Pathologist [facility] T4 Total 7.1 5.3 - 11.7 mcg/dL [facility] Comment: Test Performed at: [facility] [address] ??[phone] ADRIANNA HERRING DO,MPH Blood BLOOD SPECIMEN / Unknown 02/23/2019 3:52 PM CDT 02/23/2019 3:55 PM CDT Kandi Boyle PRODUCTION ASSISTANT-CODING CONSULTANT LAB - CHEMISTRY ORDERABLES Performing Organization Address [facility] de Phone Number [facility] [phone] [place] [phone] * TSH (02/23/2019 3:52 PM CDT) [facility] TSH 1.14 mIU/L [facility] Comment: ? Reference Range ? 1-19 Years 0.50-4.30 ? Ranges ? First trimester ?? 0.26-2.66 ? Second trimester ??0.55-2.73 ? Third trimester ?? 0.43-2.91 Test Performed at: [facility] ??[phone] ADRIANNA HERRING DO,MPH Blood BLOOD SPECIMEN / Unknown 02/23/2019 3:52 PM CDT 02/23/2019 3:55 PM CDT Kandi Boyle PRODUCTION ASSISTANT-CODING CONSULTANT LAB - CHEMISTRY ORDERABLES Performing Organization Address [facility] de Phone Number [facility] [phone] [place] [phone] * LIPID PROFILE+GLUCOSE - POINT OF CARE (AMB) (02/23/2019) QC Verified Yes Yes Cholesterol POCT 180 200 mg/dl HDL POCT 61 mg/dL Triglycerides POCT 74 130 mg/dL LDL 104 130 mg/dl Non HDL Cholesterol POCT 119 145 mg/dL Total Cholesterol/HDL Ratio POCT 2.9 6.0 Glucose 85 70 - 126 mg/dL Blood BLOOD SPECIMEN / Unknown 02/23/2019 Kandi Boyle APRN-CODING CONSULTANT LAB - POINT OF CARE ORDERABLES * HEMOGLOBIN - POINT OF CARE (AMB) STL (02/23/2019) Hemoglobin POCT 14.4 12.0 - 16.0 QC Verified Yes Yes Lot # [id number] Expiration Date 07/07/20 Blood BLOOD SPECIMEN / Unknown 02/23/2019 Kandi Boyle APRN-CODING CONSULTANT LAB - POINT OF CARE ORDERABLES documented in this encounter Visit Diagnoses Diagnosis Well adolescent visit- Primary Routine infant or child health check Screening for deficiency anemia Screening for other and unspecified deficiency anemia Rash Rash and other nonspecific skin eruption Weight loss Loss of weight Need for vaccination Need for prophylactic vaccination and inoculation against unspecified single disease documented in this encounter Care Teams Corporate Librarian Relationship Specialty Start Date End Date Nata Conley MD [address] [place] [phone] PCP - General Pediatrics 02/23/19 documented as of this encounter
--- OUTSIDE RECORDS SUMMARY | 2024-08-25 04:25 | XMS_ITS | Encounter Summary ---
Author Organization [facility] Address [address] [place] [address] Care Team Providers Care Mate Fourth Name Role Phone Rashi Melo MD Primary Care Provider [phone] Reason for Visit * Reason Comments Cough fever x4 days, seen at 2 days ago strep negative, patient complains of lower back pain and mid abdominal pain, also with a headache, no photophobia, tmax 102 treating with tylenol and motrin brings it down but comes back, tonsils swollen with pustles noted bilateral Encounter Details Date Type Department Care Team (Late st Contact Info) Description 07/24/2016 9:52 PM CARDIAC EXERCISE SPECIALIST - 07/25/2016 12:09 AM CARDIAC EXERCISE SPECIALIST Emergency ER at [address] [address] Streptococcal sore throat Discharge Disposition: Home or Self Care Social History Tobacco Use Types Packs/Day Years Used Date Smoking Tobacco: Passive Smo ke Exposure - Never Smoker Sex and Gender Information Value Date Recorded Sex Assigned at Not on file Gender Identity Not on file Sexual Orientation Not on file documented as of this encounter Last Filed Vital Signs Vital Sign Reading Time Taken Comments Blood Pressure 106/79 07/24/2016 11:23 PM CARDIAC EXERCISE SPECIALIST Pulse 112 07/24/2016 11:23 PM CARDIAC EXERCISE SPECIALIST Temperature 37.9 ??C (100.3 ??F) 07/25/2016 12:08 AM CARDIAC EXERCISE SPECIALIST Respiratory Rate 12 07/24/2016 11:23 PM CARDIAC EXERCISE SPECIALIST Oxygen Saturation 98% 07/24/2016 9:50 PM CARDIAC EXERCISE SPECIALIST Inhaled Oxygen Concentration - - Weight 59.6 kg (131 lb 6.3 oz) 07/24/2016 9:50 P M CARDIAC EXERCISE SPECIALIST Height - - Body Mass Index - - documented in this encounter Discharge Instructions * Discharge Instructions* Janina Stoll, [employer] EQUIPMENT CAPTAIN - 07/24/2016 11:46 PM CARDIAC EXERCISE SPECIALIST Sore Throat A sore throat is a painful, burning, sore, or scratchy feeling of the throat. There may be pain or tenderness when swallowing or talking. You may have other symptoms with a sore throat. These includecoughing, sneezing, fever, or a swollen neck. A sore throat is often the first sign of another sickness. These sicknesses may include a cold, flu, strep throat, or an infection called mono. Most sorethroats go away without medical treatment. HOME CARE ?? Only take medicine as told by your doctor. ?? Drink enough fluids to keep your pee (urine) clear or pale yellow. ?? Rest as needed. ?? Try using throat sprays, lozenges, or suck on hard candy (if older than 4 years or as told). ?? Sip warm liquids, such as broth, herbal tea, or warm water with honey. Try sucking on frozen icepops or drinking cold liquids. ?? Rinse the mouth (gargle) with salt water. Mix 1 teaspoon salt with 8 ounces of water. ?? Do not smoke. Avoid being around others when they are smoking. ?? Put a humidifier in your bedroom at night to moisten the air. You can also turn on a hot shower and sit in the bathroom for 5-10 minutes. Be sure the bathroom door is closed. GET HELP RIGHT AWAY IF: ?? You have trouble breathing. ?? You cannot swallow fluids, soft foods, or your spit (saliva). ?? You have more puffiness (swelling) in the throat. ?? Your sore throat does not get better in 7 days. ?? You feel sick to your stomach (nauseous) and throw up (vomit). ?? You have a fever or lasting symptoms for more than 2-3 days. ?? You have a fever and your symptoms suddenly get worse. MAKE SURE YOU: ?? Understand these instructions. ?? Will watch your condition. ?? Will get help right away if you are not doing well or get worse. Document Released: 06/02/2009 Document Revised: 05/18/2013 Document Reviewed: 05/01/2013 ExitCare?? Patient Information ??2014 [employer]. This information is not intended to replace advice given to you by your health care provider. Make sure you discuss any questions you have with your health care provider. IAC EXERCISE SPECIALIST documented in this encounter Medications at Time of Discharge Medication Sig Dispensed Refills Start Date End Date acetaminophen (TYLENOL) 325 MG tablet Take 650 mg by mouth every 4 hours as needed for Fever or Pain Maximum allowable Acetaminophen amount = 4 Grams (4000 mg) / 24 hours. 06/25/2017 amoxicillin (AMOXIL) 400 MG/5ML suspension Take 12.5 mL by mouth once daily for 9 doses 112.5 mL 07/24/2016 08/02/2016 ibuprofen (MOTRIN) 600 MG tablet Take 600 mg by mouth every 6 hours as needed for Pain 06/25/2017 documented as of this encounter ED Notes * Lori Eldridge RN - 07/25/2016 12:09 AM CST Discharge instructions reviewed with family member. Dosing schedule suggested for prescribed medication(s). Stressed the importance of finishing entire antibiotics prescribed. Reviewed necessary follow-up care and reasons to return to the ER. Opportunity for questions. Family member verbalized understanding of discharge plan. Patient alert and oriented. NAD noted. Patient walked out of department. IAC EXERCISE SPECIALIST * Janina Stoll APRN-CNP - 07/24/2016 11:35 PM CST EMERGENCY DEPARTMENT 07/24/2016 Dear Doctor, We had the pleasure of caring for your patient, Carmen Tse in our emergency department on 07/24/2016. A note from the provider(s) who cared for your patient is attached. Should you wish to access any laboratory results, please call . Should you wish to access any radiology results, please call , option 3. In addition, you can access patient information 24 hours a day, from any computer, through [employer], the online version of our electronic medical record. If you would like to use this service, please call Ericka Sherman, Connectivity Coordinator, at . We appreciate the opportunity to care for your patients. If you would like additional information, please call the emergency department directly at . Sincerely, Janina Stoll APRN-TIA Division of Emergency Medicine [place], [place] [facility] [place] EMERGENCY DEPARTMENT Provider contact with the patient: 07/24/2016 23:35 Carmen Tse [id number] [facility] EMERGENCY DEPARTMENT History Chief Complaint Patient presents with ??? Cough fever x4 days, seen at 2 days ago strep negative, patient complains of lower back pain and mid abdominal pain, also with a headache, no photophobia, tmax 102 treating with tylenol and motrin brings it down but comes back, tonsils swollen with pustles noted bilateral HPI Comments: Per mom, previously healthy 15 yo started with difficulty breathing yesterday. Sore throat and fever started 5 days ago. Tmax 102. Seen at urgent care 2 days ago and was negative for strep; diagnosed viral infection and prescribed robitussin for cough with slight improvement. Tylenol and motrin given for fever with improvement of fever, then returns. Decreased appetite, but drinkingnormally. Good urine output - at least every 8 hours. NKA Exposure to smoke. Up to date on immunizations. No daily medications. No ill contacts. Attends school. No past medical history on file. No past surgical history on file. Medications Current Outpatient Prescriptions Medication Sig Dispense Refill ??? acetaminophen (TYLENOL) 325 MG tablet Take 650 mg by mouth every 4 hours as needed for Fever orPain Maximum allowable Acetaminophen amount = 4 Grams (4000 mg) / 24 hours. ??? ibuprofen (MOTRIN) 600 MG tablet Take 600 mg by mouth every 6 hours as needed for Pain ??? amoxicillin (AMOXIL) 400 MG/5ML suspension Take 12.5 mL by mouth once daily for 9 doses 112.5 mL 0 Review of Systems Review of Systems Constitutional: Positive for appetite change and fever. Negative for activity change. HENT: Positive for congestion, rhinorrhea and sore throat. Respiratory: Positive for cough. Negative for shortness of breath, wheezing and stridor. Gastrointestinal: Positive for vomiting (x1 2 days ago; no blood or bile). Negative for blood in stool, constipation and diarrhea. Genitourinary: Negative for decreased urine volume. Skin: Negative for rash. Neurological: Positive for headaches. All relevant systems reviewed. BP 106/79 Pulse 112 Temp 101.1 ??F Resp 12 Wt 59.6 kg (131 lb 6.3 oz) SpO2 98% Physical Exam Physical Exam Constitutional: She is oriented to person, place, and time. She appears well- developed and well-nourished. No distress. Cooperative HENT: Head: Normocephalic. Right Ear: External ear normal. Left Ear: External ear normal. Nose: Nose normal. Mouth/Throat: No oropharyngeal exudate. Oropharynx with moderate erythema. Tonsils +2, with exudate noted. Uvula midline. Eyes: Conjunctivae are normal. Pupils are equal, round, and reactive to light. Right eye exhibits no discharge. Left eye exhibits no discharge. Neck: Normal range of motion. Cardiovascular: Normal rate, regular rhythm and intact distal pulses. Exam reveals no gallop and nofriction rub. No murmur heard. Pulmonary/Chest: Effort normal and breath sounds normal. No respiratory distress. She has no wheezes. She has no rales. She exhibits no tenderness. Occasional dry cough noted during exam. Lungs clear. No signs of distress noted. Abdominal: Soft. Bowel sounds are normal. She exhibits no distension and no mass. There is no tenderness. There is no rebound and no guarding. No hernia. No signs of tenderness to deep palpation. States slight tenderness around umbilicus. Musculoskeletal: Normal range of motion. Lymphadenopathy: She has no cervical adenopathy. Neurological: She is alert and oriented to person, place, and time. Skin: Skin is warm. No rash noted. She is not diaphoretic. Nursing note and vitals reviewed. Procedures Procedures ECG Interpretation ECG Interpretation Lab/SPO2 Interpretation Hospital Encounter on 07/24/16 STREP A SCREEN DIRECT W RFLX STREP A CULTURE Result Value Ref Range Strep A Rapid Positive (Abnormal) Negative Progress Notes Strep test positive. First dose of amoxicillin given here in ER by RN. Mom agreed with plan as described below. No evidence of respiratory distress or dehydration. ED Course Orders Placed This Encounter ??? STREP A SCREEN DIRECT W RFLX STREP A CULTURE Standing Status: Standing Number of Occurrences: 1 ??? ibuprofen (MOTRIN) tablet 600 mg ??? amoxicillin (AMOXIL) suspension 1,000 mg ??? amoxicillin (AMOXIL) 400 MG/5ML suspension Sig: Take 12.5 mL by mouth once daily for 9 doses Dispense: 112.5 mL Refill: 0 Plan: Give antibiotic as prescribed. Rinse your mouth (gargle) with warm salt water (1 teaspoon salt in 1 cup of water). Do this 3 to 4 times per day or as needed for comfort. May take 1 tsp of honey for comfort. Family members with a sore throat or fever should see a doctor. Make sure everyone in your house washes their hands well. Do not share food, drinking cups, or personal items. Eat soft foods until your sore throat gets better. It is your child's saliva that is contagious. He/she is contagious until 24 hours of antibiotic hasbeen taken. Get a new toothbrush after 48 hours of antibiotic. Drink enough water and fluids to keep your pee (urine) clear or pale yellow. Rest. Stay home from school, daycare, or work until you have taken medicine for 24 hours. Follow up with PCP if no improvement or worsening symptoms. Family verbalizes understanding of discharge plan. Patient discharged home alert, active, and well appearing. Medical Decision Making I have reviewed the: Nursing Notes, Vitals. I have interpreted the following results: Labs, Oxygen Saturation. I have discussed the case with Family/Caregiver. Clinical Impression Final diagnoses: Streptococcal sore throat IAC EXERCISE SPECIALIST documented in this encounter Plan of Treatment Not on file documented as of this encounter Procedures Procedure Name Priority Date/Time Associated Diagnosis Comments STREP A SCREEN DIRECT W RFLX STREP A CULTURE STAT 07/24/2016 9:52 PM CARDIAC EXERCISE SPECIALIST documented in this encounter Results * (ABNORMAL) STREP A SCREEN DIRECT W RFLX STREP A CULTURE (07/24/2016 9:52 PM CARDIAC EXERCISE SPECIALIST) Strep A Rapid Positive(A ) Negative 07/24/2016 11:00 PM CARDIAC EXERCISE SPECIALIST [facility] Microbiology ENTIRE THROAT (SURFACE REGION OF NECK) / Unknown 07/24/2016 9:52 PM CARDIAC EXERCISE SPECIALIST 07/24/2016 10:51 PM CARDIAC EXERCISE SPECIALIST Pablo Barlow MD LAB - MICROBIOLO GY ORDERABLES [facility] [place] [address] documented in this encounter Visit Diagnoses Diagnosis Streptococcal sore throat documented in this encounter Administered Medications Inactive Administered Medications - up to 3 most recent administrations Medication Order MAR Action Action Date Dose Rate Site amoxicillin (AMOXIL) suspension 1,000 mg 1,000 mg, Oral, ONCE, 1 dose, On Lina 07/24/16 at 2345, Shake well before using; Refrigerate $ Given 07/24/2016 11:51 PM CARDIAC EXERCISE SPECIALIST 1,000 mg ibuprofen (MOTRIN) tablet 600 mg 600 mg, Oral, ONCE, 1 dose, On Lina 07/24/16 at 2345, Maximum allowable amount = 3200 mg / 24 hours. $ Given 07/24/2016 11:28 PM CARDIAC EXERCISE SPECIALIST 600 mg documented in this encounter Active and Recently Administered Medications Times are shown in CARDIAC EXERCISE SPECIALIST. Scheduled Medication Order 07/23/2016 07/24/2016 07/25/2016 amoxicillin (AMOXIL) suspension 1,000 mg (COMPLETED) 1,000 mg, Oral, ONCE, 1 dose, On Lina 07/24/16 at 2345, Shake well before using; Refrigerate 2351 ($ Given - Provider: Sa ra Chente RN) ibuprofen (MOTRIN) tablet 600 mg (COMPLETED) 600 mg, Oral, ONCE, 1 dose, On Lina 07/24/16 at 2345, Maximum allowable amount = 3200 mg / 24 hours. 2328 ($ Given - Provider: Sa ra Chente RN) documented in this encounter Care Teams Mate Fourth Relationship Specialty Start Date End Date Rashi Melo MD [address] [place] [id number] PCP - General Pediatrics 07/24/16 02/22/19 documented as of this encounter
--- OUTSIDE RECORDS SUMMARY | 2024-08-25 04:25 | XMS_ITS | Referral Summary ---
Author Organization [facility] Address [address] [place] [address] Care Team Providers Care Correspondence Section Supervisor Name Role Phone Nata Conley MD Primary Care Provider [phone] Source Comments [facility],non-owned Affiliates and Associated Physician Practices is amultiple site organization consisting of ambulatory clinics and hospital sitesin [place], [place], [place] and [place]. This disclosure is being madepursuant to the Care Everywhere program and may not contain all information available regarding this patient. Last updated 18.[facility] Allergies No known active allergies Medications * [...] nasal sprayIndications:Dy sfunction of left eustachian tube [place] 2 (two) sprays into each nostril once daily 16 g 12/30/2023 Active Active Problems Problem Noted Date Diagnosed Date [facility] (well child check) 02/24/2019 Overview (02/24/2019): 18 yo 02/23/19 (Establish care) Weight loss 02/24/2019 Overview (02/24/2019): 02/23/19 TSH, Free T4, CBC, CMP, Ammonia, Celiac panel Smoker 02/24/2019 Overview (02/24/2019): 02/23/19-Patient reports to [facility] daily since December 2017. Comments Yes Resolved [...] Conj 04/13/2003,02/13/2003, TDAP (7yrs+) 05/23/2015 VARICELLA 05/31/2015,04/22/2012,10/16/2003 Social History Tobacco Use Types Packs/Day Years [...] 04/16/2024 5:04 PM CDT Plan of Treatment Not on file Goals Goal Patient Goal Type Associated Problems Recent Progress Patient-Stated? Author Use safety retraint in car Lifestyle On track( 020 1:40 PM BELL[facility]) No Irais Rios Care Teams Correspondence Section Supervisor Relationship Specialty Start Date End Date Nata Conley MD [address] [place] [id number] PCP - General Pediatrics 02/23/19
--- OUTSIDE RECORDS SUMMARY | 2024-08-25 04:25 | XMS_ITS | Encounter Summary ---
Author Organization [facility] Address [address] [place] [address] Care Team Providers Care Lute Packer Or Applier Name Role Phone Rashi Melo MD Primary Care Provider [phone] Reason for Visit * Reason Comments Ear Problem left ear x2 days Ear Pain Encounter Details Date Type Department Care Team (Late st Contact Info) Description 06/25/2017 5:20 PM CDT Office Visit [facility] [employer] [facility] [address] [address] Provider, [facility] Strep throat (Primary Dx) Social History Tobacco Use Types Packs/Day Years Used Date Smoking Tobacco: Passive Smo ke Exposure - Never Smoker Smokeless Tobacco: Never Tobacco Cessation:Counseling Given: No Alcohol Use Standard Drinks/Week Comments No 0 (1 standard drink = 0.6 oz pur e alcohol) Sex and Gender Information Value Date Recorded Sex Assigned at Not on file Gender Identity Not on file Sexual Orientation Not on file documented as of this encounter Last Filed Vital Signs Vital Sign Reading Time Taken Comments Blood Pressure 115/70 06/25/2017 5:29 PM CDT Pulse 74 06/25/2017 5:29 PM CDT Temperature 36.8 ??C (98.3 ??F) 06/25/2017 5:29 PM CD T Respiratory Rate 20 06/25/2017 5:29 PM CDT Oxygen Saturation 100% 06/25/2017 5:29 PM CDT Inhaled Oxygen Concentration - - Weight 61.7 kg (136 lb) 06/25/2017 5:29 PM CDT Height 157.5 cm (5' 2 ) 06/25/2017 5:29 PM CDT Body Mass Index 24.87 06/25/2017 5:29 PM CDT Body Mass Index Percentile 88.98% 06/25/2017 5:2 9 PM CDT Growth Chart: [facility] (Girls, 2- 20 Years) documented in this encounter Patient Instructions * Patient Instructions* Gin Cochran APRN-VENDETTE - 06/25/2017 5:44 PM CDT Images from the original note were not included. Strep Throat in Children CUFF TURNER: Strep throat is a throat infection caused by bacteria. It is easily spread from person to person. Common symptoms include the following: ?? Sore, red, and swollen throat ?? Fever and headache ?? Upset stomach, abdominal pain, or vomiting ?? White or yellow patches or blisters in the back of the throat ?? Throat pain when he or she swallows ?? Tender, swollen lumps on the sides of the neck or jaw Call 911 for any of the following: ?? Your child has trouble breathing. Seek immediate care if: ?? Your child's signs and symptoms continue for more than 5 to 7 days. ?? Your child is tugging at his or her ears or has ear pain. ?? Your child is drooling because he or she cannot swallow their spit. ?? Your child has blue lips or fingernails. Contact your child's healthcare provider if: ?? Your child has a fever. ?? Your child has a rash that is itchy or swollen. ?? Your child's signs and symptoms get worse or do not get better, even after medicine. ?? You have questions or concerns about your child's condition or care. Treatment for strep throat: ?? Antibiotics treat a bacterial infection. Your child should feel better within 2 to 3 days after antibiotics are started. Give your child his antibiotics until they are gone, unless your child's healthcare provider says to stop them. Your child may return to school 24 hours after he starts antibiotic medicine. ?? Acetaminophen decreases pain and fever. It is available without a doctor's order. Ask how much to give your child and how often to give it. Follow directions. Acetaminophen can cause liver damage if not [...] direction from your child's healthcare provider. ?? Do not give aspirin to children under 18 years of age. Your child could develop Cinthia syndrome ifhe takes aspirin. Cinthia syndrome can cause life- threatening brain and liver damage. Check your child's medicine labels for aspirin, salicylates, or oil of wintergreen. ?? Give your child's medicine as directed. Contact your child's healthcare provider if you think the medicine is not working as expected. Tell him or her if your child is allergic to any medicine. Keep a current list of the medicines, vitamins, and herbs your child takes. Include the amounts, and when, how, and why they are taken. Bring the list or the medicines in their containers to follow-up visits. Carry your child's medicine list with you in case of an emergency. Manage your child's symptoms: ?? Give your child throat lozenges or hard candy to suck on. Lozenges and hard candy can help decrease throat pain. Do not give lozenges or hard candy to children under 4 years. ?? Give your child plenty of liquids. Liquids will help soothe your child's throat. Ask your child's healthcare provider how much liquid to give your child each day. Give your child warm or frozen liquids. Warm liquids include hot chocolate, sweetened tea, or soups. Frozen liquids include ice pops.Do not give your child acidic drinks such as orange juice, grapefruit juice, or lemonade. Acidic drinks can make your child's throat pain worse. ?? Have your child gargle with salt water. If your child can gargle, give him or her ?? of a teaspoon of salt mixed with 1 cup of warm water. Tell your child to gargle for 10 to 15 seconds. Your child can repeat this up to 4 times each day. ?? Use a cool mist humidifier in your child's bedroom. A cool mist humidifier increases moisture inthe air. This may decrease dryness and pain in your child's throat. Prevent the spread of strep throat: ?? Wash your and your child's hands often. Use soap and water or an alcohol- based hand rub. ?? Do not let your child share food or drinks. Replace your child's toothbrush after he has taken antibiotics for 3 days. Follow up with your child's healthcare provider as directed: Write down your questions so you remember to ask them during your child's visits. ?? 2016 [employer]. Information is for End User's use only and may not be sold, redistributed or otherwise used for commercial purposes. All illustrations and images included in CareNotes?? are the copyrighted property of [employer]. or [employer]. The above information is an visual training aide only. It is not intended as medical advice for individual conditions or treatments. Talk to your doctor, nurse or pharmacist before following any medical regimen to see if it is safe and effective for you. documented in this encounter Progress Notes * Gin Cochran APRN-CNP - 06/25/2017 5:33 PM CDT Subjective: Carmen Tse is a 16 y.o. female who presents to the clinic today for Chief Complaint Patient presents with ??? Ear Problem left ear x2 days ??? Ear Pain . Primary Care Physician is Rashi Melo MD. Symptoms include ear pain left. Onset of symptoms was 2 days ago with sore throat. Sx gradually worsening since that time. She Has also reported the following symptoms: head cold. Rates ear pain a 9 on scale of 0-10. Has not taken any pain medicine except 2 days ago took some medicine. Mother states had ear infections as a baby on a monthly basis but never got tubes. No past medical history on file. Family History Problem Relation Age of Onset ??? Other - Cardiac Father ??? Cancer - Other Father ??? Asthma Neg Hx ??? Autoimmune Disease Neg Hx ??? Bipolar Disorder Neg Hx ??? Cancer - Breast Neg Hx ??? Cancer - Colon Neg Hx ??? Cancer - Ovarian Neg Hx ??? Cancer - Pancreatic Neg Hx ??? Cancer - Prostate Neg Hx ??? Depression Neg Hx ??? Eczema Neg Hx ??? Hypertension Neg Hx ??? Migraine Neg Hx ??? Seizures Neg Hx ? ? Sudd. <30 Neg Hx ??? Thyroid Disease Neg Hx ??? Osteoporosis Neg Hx ??? Ulcerative Colitis Neg Hx Current Outpatient Prescriptions Medication Sig Dispense Refill ??? amoxicillin-clavulanate (AUGMENTIN) 875-125 MG tablet Take 1 tablet by mouth 2 times daily withmorning and evening meal for 10 days 20 tablet 0 No current facility-administered medications for this visit. No Known Allergies Social History Social History ??? Marital status: Single Spouse name: N/A ??? Number of children: N/A ??? Years of education: N/A Occupational History ??? Not on file. Social History Main Topics ??? Smoking status: Passive Smoke Exposure - Never Smoker ??? Smokeless tobacco: Never Used ??? Alcohol use No ??? Drug use: Not on file ??? Sexual activity: Not on file Other Topics Concern ??? Not on file Social History Narrative Review of Systems Constitutional: Negative Eyes: Negative Ears, nose, mouth, and throat: Positive for earaches on left, congestion,throat irritation, post nasal drainage Respiratory: Negative Cardiovascular: Negative Skin: Negative Musculoskeletal:Negative Neurological: Negative The rest of the review of systems was negative. Objective: BP 115/70 (BP SITE: LEFT ARM, BP POSITION: SITTING, BP CUFF SIZE: Adult) Pulse 74 Temp 98.3 ??F (Oral) Resp 20 Ht 1.575 m (5' 2 ) Wt 61.7 kg (136 lb) SpO2 100% BMI 24.87 kg/m2 Exam General appearance: alert, cooperative, no distress Head: normocephalic, without trauma Eyes: sclera and conjunctiva clear, EOMI and PERRLA, lids normal Ears: both TM's bulging and slightly irritated Nose: nares open; no septal deviation is noted, clear rhinorrhea Throat: no mucous membrane abnormalities, moderate oropharyngeal erythema, tonsillar hypertrophy 3+ Nodes: cervical adenopathy bilaterally Lungs: breath sounds normal and symmetric; no rales or wheezes Heart: regular rhythm, normal S1 and S2, without murmurs, gallops or rubs Skin: no rashes or other abnormalities are noted Assessment: Encounter Diagnosis Name Primary? Strep throat Yes Plan: Pharyngitis/Strep ??? Change toothbrush in 3 days ??? Do not return to work or school until you have been on antibiotic therapy for a full 24 hours ' ??? Ibuprofen or tylenol for pain as directed on package ??? Increase fluid intake ??? May use warm salt gargles to soothe throat ??? 1 tsp:1 tsp mixture of liquid Benadryl and Maalox to swish, gargle and spit out may soothe throat ??? Throat lozenges, hard candies, and/or chloraseptic spray for throat comfort ??? Do not share drinking glasses or eating utensils ??? Warm liquids may help soothe the throat ??? Wash hands frequently; Cover your mouth when sneezing or coughing ??? Activity as tolerated ??? Info handout given *Please return to Clinic or see your primary care provider in 2-3 days for further evaluation if sore throat does not resolve or increases in severity* *Go to Emergency room for any difficulty in breathing, drooling, difficulty swallowing, or inability to fully open mouth* Orders Placed This Encounter ??? STREP A SCREEN - POINT OF CARE (AMB) STL ??? amoxicillin-clavulanate (AUGMENTIN) 875-125 MG tablet Sig: Take 1 tablet by mouth 2 times daily with morning and evening meal for 10 days Dispense: 20 tablet Refill: 0 Recent Results (from the past 24 hour(s)) STREP A SCREEN - POINT OF CARE (AMB) STL Collection Time: 06/25/17 12:00 AM Result Value Ref Range Strep A Rapid Positive (Abnormal) Negative Strep A INTERNAL CONTROL Present Lot Number [id number] Expiration Date [id number] documented in this encounter Plan of Treatment Not on file documented as of this encounter Procedures Procedure Name Priority Date/Time Associated Diagnosis Comments STREP A SCREEN - POINT OF CARE (AMB) STL Routine 06/25/2017 Strep throat documented in this encounter Results * (ABNORMAL) STREP A SCREEN - POINT OF CARE (AMB) STL (06/25/2017) Strep A Rapid POCT Positive(A) Negative Strep A Internal Control Present Lot # [id number] Expiration Date 11210915 Throat ENTIRE THROAT (SURFACE REGION OF NECK) / Unknown 06/25/2017 Gin Cochran CLINICAL SPECIALIST-VENDETTE LAB - POINT O F CARE ORDERABLES documented in this encounter Visit Diagnoses Diagnosis Strep throat- Primary Streptococcal sore throat documented in this encounter Care Teams Lute Packer Or Applier Relationship Specialty Start Date End Date Rashi Melo MD [address] [place] [address] PCP - General Pediatrics 07/24/16 02/22/19 documented as of this encounter
--- OUTSIDE RECORDS SUMMARY | 2024-08-25 04:25 | XMS_ITS | Encounter Summary ---
Author Organization [facility] Address [address] [place] [address] Care Team Providers Care Heel Seat Filler Name Role Phone Nata Conley MD Primary Care Provider [phone] Reason for Visit * Reason Comments Sore Throat Nasal congestion, lo ss of voice X 3 days Encounter Details Date Type Department Care Team (Late st Contact Info) Description 06/23/2022 1:30 PM CDT Office Visit [facility] [address] [address] Provider1, [facility] Upper respiratory tract infection, unspecified type (Primary Dx) Social History Tobacco Use [...] PM CDT documented as of this encounter Last Filed Vital Signs Vital Sign Reading Time Taken Comments Blood Pressure 104/72 06/23/2022 1:58 PM CDT Pulse 83 06/23/2022 1:58 PM CDT Temperature 37.1 ??C (98.7 ??F) 06/23/2022 1:58 PM CD T Respiratory Rate - - Oxygen Saturation 97% 06/23/2022 1:58 PM CDT Inhaled Oxygen Concentration - - Weight 47.2 kg (104 lb) 06/23/2022 1:58 PM CDT Height - - Body Mass Index - - documented in this encounter Progress Notes * MelanyJulianna hobbs, INTERNET SITE DESIGNER-DISABILITY AIDE - 06/23/2022 2:00 PM CDT 06/23/2022 PCP: Nata Conley MD CC: Chief Complaint Patient presents with ??? Sore Throat Nasal congestion, loss of voice X 3 days . HPI: Carmen Tse is a 21 year old female [facility] with complaints of nasal congestion, coughing sneezing, fatigue and loss of voice since Thursday. Denies fever. Has had dayquil and nyquil. Outpatient Medications Prior to Visit Medication Sig Dispense Refill ??? norgestimate-ethinyl estradiol [...] Social History Tobacco Use Smoking Status Never Smoker Smokeless Tobacco Never Used Tobacco Comment non smoking household Social History Substance and Sexual Activity Drug Use No No Known Allergies Family History Problem Relation Name Age of Onset ??? Other - Cardiac Father 1st [place] at age 42 ??? Cancer - Other [...] Review of Systems: Pertinent information listed in HPI Exam: BP 104/72 Pulse 83 Temp 98.7 ??F (37.1 ??C) (Oral) Wt 47.2 kg (104 lb) LMP 06/19/2022 SpO2 97% Physical Exam Vitals and nursing note reviewed. Exam conducted with a aerospace products sales engineer present (mom). Constitutional: General: She is not in acute distress. Appearance: Normal appearance. She is not ill-appearing. HENT: Head: Normocephalic and atraumatic. Right Ear: Tympanic membrane, ear canal and external ear normal. Left Ear: Tympanic membrane, ear canal and external ear normal. Nose: Congestion and rhinorrhea present. Mouth/Throat: Mouth: Mucous membranes are moist. Pharynx: Posterior oropharyngeal erythema present. Cardiovascular: Rate and Rhythm: Normal rate. Heart sounds: Normal heart sounds. Pulmonary: Effort: Pulmonary effort is normal. Breath sounds: Normal breath sounds. Musculoskeletal: Cervical back: Normal range of motion. Skin: General: Skin is warm and dry. Neurological: Mental Status: She is alert and oriented to person, place, and time. Psychiatric: Mood and Affect: Mood normal. Behavior: Behavior normal. No results found for this visit on 06/23/22. Impression/ Plan: ICD-10-CM 1. Upper respiratory tract infection, unspecified type J06.9 azithromycin (Zithromax) 250 MG tablet Orders Placed This Encounter ??? azithromycin (Zithromax) 250 MG tablet Sig: Take 2 tabs today, then 1 tab daily for next 4 days Dispense: 6 tablet Refill: 0 There are no Patient Instructions on file for this visit. Follow up with PCP if symptoms get worse or fail to improve for further evaluation and treatment. JESUS ALBERTO Gamino documented in this encounter Plan of Treatment Not on file documented as of this encounter Goals Goal Patient Goal Type Associated Problems Recent Progress Patient-Stated? Author Use safety retraint in car Lifestyle On track( 020 1:40 PM CUE WORKER) No Irais Rios documented as of this encounter Visit Diagnoses Diagnosis Upper respiratory tract infection, unspecified type- Primary documented in this encounter Care Teams Heel Seat Filler Relationship Specialty Start Date End Date Nata Conley MD [address] [place] [phone] PCP - General Pediatrics 02/23/19 documented as of this encounter
--- OUTSIDE RECORDS SUMMARY | 2024-08-25 04:25 | XMS_ITS | Encounter Summary ---
Author Organization [facility] Address [address] [place] [address] Care Team Providers Care Grips Name Role Phone Nata Conley MD Primary Care Provider [phone] Reason for Visit * Reason Onset Date Comments Record Request 11/04/2023 Encounter Details Date Type Department Care Team (Late st Contact Info) Description 11/04/2023 Nurse Triage [facility] - Pediatrics [address] [place] [address] Nata Conley MD [address] [place] [address] Record Request Social History Tobacco Use Types Packs/Day [...] Telephone Encounter - Eryn Jean-Baptiste RN - 11/04/2023 12:38 PM REFERENCE SERVICES HEAD Mom calls to note patient needs a copy of her immunizations. No My Chart. Based on patient's age-advised patient requesting her records. Mom states that patient will come into office today or tomorrow to get a copy of records in person-no additional questions or concerns-note closed out. RENCE SERVICES HEAD documented in this encounter Plan of Treatment Not on file documented as of this encounter Goals Goal Patient Goal Type Associated Problems Recent Progress Patient-Stated? Author Use safety retraint in car Lifestyle On track( 020 1:40 PM REFERENCE SERVICES HEAD) No Irais Rios documented as of this encounter Visit Diagnoses Not on filedocumented in this encounter Care Teams Grips Relationship Specialty Start Date End Date Nata Conley MD [address] [place] [phone] PCP - General Pediatrics 02/23/19 documented as of this encounter
--- OUTSIDE RECORDS SUMMARY | 2024-08-25 04:25 | XMS_ITS | Patient Health Summary ---
Author Organization [facility] Address [address] [place] [address] Care Team Providers Care Hydramatic Specialist Name Role Phone Nata Conley MD Primary Care Provider + [phone] Note from [facility],non-owned Affiliates and Associated Physician Practices is amultiple site organization consisting of ambulatory clinics and hospital sitesin [place], [place], [place] and [place]. This disclosure is being madepursuant to the Care Everywhere program and may not contain all information available regarding this patient. Last updated 18.[facility] Allergies No known active allergies Medications * Be aware that medications may not be up to date on this document. Alwaysverify current medications with the patient. * norgestimate-ethinyl estradiol (MONO-LINYAH) 0.25-35 MG-MCG tablet(Started 07/10/2020) Take 1 tablet by mouth once daily 6 refills by 07/10/2021 * azithromycin (Zithromax) 250 MG tablet(Started 06/23/2022) Take 2 tabs today, then 1 tab daily for next 4 days * fluticasone propionate (Flonase) 50 MCG/ACT nasal spray(Started 12/30/2023) [place] 2 (two) sprays into each nostril once daily Active Problems Problem Noted Date Diagnosed Date WCC (well child check) 02/24/2019 Weight loss 02/24/2019 Smoker 02/24/2019 Resolved Problems Problem Noted Date Diagnosed Date Resolved Date Rash 02/24/2019 03/24/2019 Immunizations * INFLUENZA VACCINE, TRIV. (AFLURIA, FLUZONE TRIVALENT; 6MO+) (IIV3)(Given 07/17/2003) * DTaP VACCINE IM (6wk-6yrs)(Given 02/08/2007, 04/15/2004, 04/13/2003, 02/13/2003, 2002) * FLU VACCINE TRI IIV3 SPLIT PF IM (FLUVIRIN)(Given 06/18/2011) * HEP A PEDS 2 DOSE(Given 05/23/2015, 04/22/2012, 10/15/2005) * HEP A VACCINE, ADULT(Given 10/15/2005) * HEP B VACCINE, ADULT 3 DOSE(Given 07/17/2003, 04/13/2003, 2002) * HEP B VACCINE, PED/ADOL(Given 07/17/2003, 04/13/2003, 2002) * HIB-PRP-T 4 DOSE(Given 01/24/2004, 04/13/2003, 02/13/2003, 2002) * Hib,HISTORIC VACCINE(Given 01/24/2004, 04/13/2003, 02/13/2003, 2002) * Human Papilloma Virus Ninevalent Vaccine(Given 10/11/2020, 07/10/2020, 02/23/2019) * INFLUENZA(Given 10/02/2010) * INFLUENZA VACCINE, QUADR. (FLUZONE; FLULAVAL; FLUARIX; AFLURIA QUADRIVALENT; 6MO+), 0.5 ML (IIV4)(Given 07/10/2020) * MENINGOCOCAL MENINGITIS(Given 05/23/2015) * MENINGOCOCCAL CONJUGATE (MCV4P)(Given 02/23/2019) * MMR(Given 01/25/2008, 01/24/2004) * PNEUMOCOCCAL PCV, HISTORIC VACCINE(Given 04/13/2003, 02/13/2003, 2002) * POLIO IPV(Given 02/18/2007, 04/15/2004, 02/13/2003, 2002) * Pneumococcal Pcv13 Conj(Given 04/13/2003, 02/13/2003, 2002) * TDAP (7yrs+)(Given 05/23/2015) * VARICELLA(Given 05/31/2015, 04/22/2012, 10/16/2003) Social History Tobacco Use Types Packs/Day Years [...] Mass Index 18.84 04/16/2024 5:04 PM CDT Procedures * US OB LESS 14 WKS W TRANSV W DOPP(Performed 04/16/2024) Performed for RLQ abdominal pain, Vaginal bleeding before 22 weeks gestation (HCC) * BLOOD TYPE ABO+ RH PANEL(Performed 04/16/2024) * HCG BETA BLOOD QUANTITATIVE(Performed 04/16/2024) * COMPREHENSIVE METABOLIC PANEL(Performed 04/16/2024) * CBC W AUTO DIFFERENTIAL(Performed 04/16/2024) * HEMOGLOBIN - POINT OF CARE (AMB)(Performed 07/10/2020) Performed for Screening for iron deficiency anemia * HCG URINE QUALITATIVE - POINT OF CARE (AMB)(Performed 02/25/2019) Performed for Encounter for other contraceptive management * CELIAC DISEASE COMPREHENSIVE(Performed 02/23/2019) Performed for Weight loss * AMMONIA(Performed 02/23/2019) Performed for Weight loss * COMPREHENSIVE METABOLIC PANEL(Performed 02/23/2019) Performed for Weight loss * CBC W AUTO DIFFERENTIAL(Performed 02/23/2019) Performed for Weight loss * T4 TOTAL(Performed 02/23/2019) Performed for Weight loss * TSH(Performed 02/23/2019) Performed for Weight loss * LIPID PROFILE+GLUCOSE - POINT OF CARE (AMB)(Performed 02/23/2019) Performed for Well adolescent visit * HEMOGLOBIN - POINT OF CARE (AMB) STL(Performed 02/23/2019) Performed for Screening for deficiency anemia * INFLUENZA A+B - POINT OF CARE (AMB)(Performed 05/18/2018) Performed for Acute maxillary sinusitis, recurrence not specified * STREP A SCREEN - POINT OF CARE (AMB) STL(Performed 05/18/2018) Performed for Acute maxillary sinusitis, recurrence not specified * STREP A SCREEN - POINT OF CARE (AMB) STL(Performed 06/25/2017) Performed for Strep throat * STREP A SCREEN DIRECT W RFLX STREP A CULTURE(Performed 07/24/2016) Results * US OB Less 14 Wks W Transv W Dopp (04/16/2024 7:48 PM CDT) Anatomical Region Laterality Modality Pelvis Ultrasound 04/17/2024 10:4 2 AM CDT Impressions 04/17/2024 10:48 AM CDT IMPRESSION: 1.Single intrauterine gestation, corresponding to 6 weeks, 0 days. Follow-up examination is recommended at 18-20 weeks gestation for evaluation of anatomy. 2.Presumed corpus luteal cyst in the left ovary. Preliminary interpretation was provided by [facility]. > Interpreting Provider: Fitz Grier MD on 04/17/2024 10:48 AM Narrative 04/17/2024 10:48 AM CDT PROCEDURE: ??US OB LESS 14 WKS W TRANSV W DOPP, DATE/TIME OF EXAM: 04/16/2024 7:48 PM, LOCATION ??[facility] INDICATION: R10.31: Right lower quadrant pain O20.9: Hemorrhage in early , unspecified (HCC) ADDITIONAL CLINICAL INFORMATION: Ordering Provider Reason For Exam: Technologist Note: Additional: COMPARISON: None. FINDINGS: Color Doppler and spectral analysis were utilized. A gestational sac is seen within the uterus. The crown-rump length measures 4 mm, corresponding to a gestational age of 6 weeks, 0 days. The mean gestation sac diameter measures 12 mm, corresponding to a gestational age of 6 weeks, 0 days. The estimated date of delivery is 12/10/2024. The patient's last menstrual period was 03/09/2024; therefore, by dates, the fetus should be 5 weeks and 3 days. Evaluation of anatomy was not performed. cardiac activity is identified, with the heart rate measuring 142 bpm. Uterus: 7.1 x 4.4 x 5.9 cm Right ovary: 3.1 x 1.7 x 2.3 cm Left ovary: 3.6 x 2.1 x 3.5 cm A presumed corpus luteum cyst is seen in the left ovary, measuring 1.8 x 1.5 x 3.8 cm. No abnormal fluid collections are noted. No adnexal masses are identified. Procedure Note Fitz Grier MD - 04/17/2024 PROCEDURE: US OB LESS 14 WKS W TRANSV W DOPP, DATE/TIME OF EXAM: 04/16/2024 7:48 PM, LOCATION [facility] INDICATION: R10.31: Right lower quadrant pain O20.9: Hemorrhage in early , unspecified (HCC) ADDITIONAL CLINICAL INFORMATION: Ordering Provider Reason For Exam: Technologist Note: Additional: COMPARISON: None. FINDINGS: Color Doppler and spectral analysis were utilized. A gestational sac is seen within the uterus. The crown-rump length measures 4 mm, corresponding to a gestational ageof 6 weeks, 0 days. The mean gestation sac diameter measures 12 mm, corresponding to a gestational age of 6 weeks, 0 days. The estimateddate of delivery is 12/10/2024. The patient's last menstrual period was03/09/2024; therefore, by dates, the fetus should be 5 weeks and 3 days. Evaluation of anatomy was not performed. cardiac activity is identified, with the heart rate measuring 142 bpm. Uterus: 7.1 x 4.4 x 5.9 cm Right ovary: 3.1 x 1.7 x 2.3 cm Left ovary: 3.6 x 2.1 x 3.5 cm A presumed corpus luteum cyst is seen in the left ovary, measuring 1.8 x 1.5 x 3.8 cm. No abnormal fluid collections are noted. No adnexal masses areidentified. IMPRESSION: 1.Single intrauterine gestation, corresponding to 6 weeks, 0 days. Follow-up examination is recommended at 18-20 weeks gestation for evaluation of anatomy. 2.Presumed corpus luteal cyst in the left ovary. Preliminary interpretation was provided by [facility]. > Interpreting Provider: Fitz Grier MD on 04/17/2024 10:48 AM Flo [facility] US ORDERABLES * BLOOD TYPE ABO+ RH PANEL (04/16/2024 5:21 PM CDT) ABO Rh O POS 04/16/2024 5:5 6 PM CDT [facility] Blood BLOOD SPECIMEN / Unknown Venipuncture / Unknown 04/16/2024 5:21 PM CDT 04/16/2024 5:24 PM CDT Mikael Alas PA-C LAB - BLOOD BANK ORD ERABLES [facility] [address] [place] [address], [facility] [phone] * (ABNORMAL) CBC W AUTO DIFFERENTIAL (04/16/2024 5:21 PM CDT) Only the most recent of2 resultswithin the time period is included. WBC 11.8(H) 4.0 - 10.7 x10E9/L 04/16/2024 5:27 PM CDT [facility] RBC Count 4.91 3.90 - 5.20 x10E12/L 04/16/2024 5:27 PM CDT [facility] Hemoglobin 13.3 11.9 - 15.8 g/dL 04/16/2024 5:27 PM CDT [facility] Hematocrit 40.5 34.8 - 46.1 % 04/16/2024 5:27 PM CDT [facility] MCV 82.5 80.0 - 98.0 fL 04/16/2024 5:27 PM CDT [facility] MCH 27.1 26.7 - 33.6 pg 04/16/2024 5:27 PM CDT [facility] MCHC 32.8 31.7 - 36.3 g/dL 04/16/2024 5:27 PM CDT [facility] RDW-CV 14.3 11.3 - 14.8 % 04/16/2024 5:27 PM CDT [facility] Platelet Count 351 150 - 420 x10E9/L 04/16/2024 5:27 PM CDT [facility] MPV 9.5 7.8 - 11.4 fL 04/16/2024 5:27 PM CDT [facility] Neutrophil % 62.1 41.0 - 74.0 % 04/16/2024 5:27 PM CDT [facility] Lymphocyte % 26.9 17.0 - 47.0 % 04/16/2024 5:27 PM CDT [facility] Monocyte % 8.6 3.0 - 11.0 % 04/16/2024 5:27 PM CDT [facility] Eosinophil % 1.3 0.0 - 7.0 % 04/[facility] Basophil % 0.8 0.0 - 1.6 % 04/16/2024 5:[address] [facility] Immature Granulocytes % 0.3 0.0 - 1.0 % 04/16/2024 5:[address] [facility] Neutrophil Absolute 7.35 1.60 - 7.50 x10E9/L 04/16/2024 5:[address] [facility] Lymphocyte Absolute 3.18 1.00 - 4.40 x10E9/L 04/16/2024 5:[address] [facility] Monocyte Absolute 1.02(H) 0.15 - 1.00 x10E9/L 04/16/2024 5:[address] [facility] Eosinophil Absolute 0.15 0.00 - 0.60 x10E9/L 04/16/2024 5:[address] [facility] Basophil Absolute 0.10 0.00 - 0.13 x10E9/L 04/16/2024 5:[address] [facility] Blood BLOOD SPECIMEN / Unknown Venipuncture / Unknown 04/16/2024 5:21 PM CDT 04/16/2024 5:24 PM CDT Mikael Alas PA-C LAB - HEMATOLOGY ORD ERABLES [facility] [address] [address] * (ABNORMAL) COMPREHENSIVE METABOLIC PANEL (04/16/2024 5:21 PM CDT) Only the most recent of2 resultswithin the time period is included. [facility] Glucose 73 70 - 105 mg/dL 04/16/2024 5:40 [facility] Sodium 138 136 - 145 mmol/L 04/16/2024 5:40 PM [facility] Potassium 3.5 3.5 - 5.1 mmol/L 04/16/2024 5:[address] [facility] Chloride 108(H) 98 - 107 mmol/L 04/16/2024 5:[address] [facility] CO2 18(L) 22 - 29 mmol/L 04/16/2024 5:[address] [facility] Calcium 9.5 8.4 - 10.4 mg/dL 04/16/2024 5:[address] [facility] Anion Gap 12 6 - 16 mmol/L 04/16/2024 5:[address] [facility] BUN 6 5.3 - 18.7 mg/dL 04/16/2024 5:[address] [facility] Creatinine 0.62 0.57 - 1.11 mg/dL 04/16/2024 5:[address] [facility] Alkaline Phosphatase 57 40 - 150 U/L 04/16/2024 5:[address] [facility] ALT 9 0 - 55 U/L 04/16/2024 5:[address] [facility] AST 14 5 - 34 U/L 04/16/2024 5:[address] [facility] Protein Total 7.4 6.4 - 8.3 gm/dL 04/16/2024 5:[address] [facility] Albumin 4.1 3.4 - 5.0 gm/dL 04/16/2024 5:[address] [facility] Bilirubin Total 0.4 0.2 - 1.2 mg/dL 04/16/2024 5:[address] [facility] eGFR by CKD-EPI >90 >=90 mL/min/1.7 3 m2 04/16/2024 5:[address] [facility] Blood BLOOD SPECIMEN / Unknown Venipuncture / Unknown 04/16/2024 5:21 PM CDT 04/16/2024 5:24 PM CDT Mikael Alas PA-C LAB - CHEMISTRY MEIR CHUNG [facility] [address] [address] * HCG BETA BLOOD QUANTITATIVE (04/16/2024 5:21 PM CDT) [facility] hCG Quantitative 23,541.65 mIU/mL 04/16/20 24 6:06 PM CDT [facility] Blood BLOOD SPECIMEN / Unknown Venipuncture / Unknown 04/16/2024 5:21 PM CDT 04/16/2024 5:24 PM CDT Narrative [facility] - 04/16/2024 6:06 PM CDT hCG Reference Range, mIU/mL: ? Non Females ? 0-6.0 ? Perimenopausal Females ages 41-55* ?0-7.7 ? Postmenopausal Females age >55* ? 0-14 ? Females, Weeks after Last Menstrual Period ?0.2-1 week ? 5-50 ?1 - 2 weeks ?50-500 ?2 - 3 weeks ?100-5000 ?3 - 4 weeks ?500-10,000 ?4 - 5 weeks ?1000-50,000 ?5 - 6 weeks ?10,000-100,000 ?6 - 8 weeks ?15,000-200,000 ?2 - 3 months ? 10,000-100,000 ?Trophoblastic Disease ?>100,000 *In higher than expected hCG in females > age 40, a serum FSH >20 IU/L makes unlikely. Mikael Alas PA-C LAB - CHEMISTRY [facility] Address City/State/ZIP Co de Phone Number [facility] [address] [place] [address] * (ABNORMAL) HEMOGLOBIN - POINT OF CARE (AMB) (07/10/2020) Hemoglobin POCT 16.8(A) 11.0 - 14.0 gm/dL Blood BLOOD SPECIMEN / Unknown 07/10/2020 Chago Coates DO LAB - POINT OF CARE ORDERABLES * HCG URINE QUALITATIVE - POINT OF CARE (AMB) (02/25/2019) HCG Qual Urine Negative Negative QC Verified Yes Yes Urine URINE / Unknown 02/25/2019 Kandi Boyle DOCKWORKER-[employer] LAB - POINT OF CARE ORDERABLES * CELIAC DISEASE COMPREHENSIVE (02/23/2019 3:52 PM [...] 463 mg/dL [facility] Comment: Test Performed at: [facility] [address] ?? EDIL GRIJALVA MD,PHD Blood BLOOD SPECIMEN / Unknown 02/23/2019 3:52 PM CDT 02/23/2019 3:55 PM CDT Kandi Boyle [employer] LAB - CHEMISTRY ORDERABLES Performing Organization Address [facility] de Phone Number [facility] [id number] [place] [address] * AMMONIA (02/23/2019 3:52 PM CDT) Ammonia 48 < OR = 72 umol/L [facility] Comment: Test Performed at: [facility] [address] ??[id number] ADRIANNA HERRING DO,MPH Blood BLOOD SPECIMEN / Unknown 02/23/2019 3:52 PM CDT 02/23/2019 3:55 PM CDT Kandi Boyle [employer] LAB - CHEMISTRY ORDERABLES Performing Organization Address [facility] de Phone Number [facility] [phone] [place] [id number] * TSH (02/23/2019 3:52 PM CDT) TSH 1.14 mIU/L [facility] Comment: ? Reference Range ? 1-19 Years 0.50-4.30 ? Ranges ? First trimester ?? 0.26-2.66 ? Second trimester ??0.55-2.73 ? Third trimester ?? 0.43-2.91 Test Performed at: [facility] [address] [place], [place] ??[phone] ADRIANNA HERRING DO,MPH Blood BLOOD SPECIMEN / Unknown 02/23/2019 3:52 PM CDT 02/23/2019 3:55 PM CDT Kandi Boyle D[employer]WORK[employer] LAB - CHEMISTRY ORDERABLES Performing Organization Address [facility] de Phone Number [facility] [address] [place] [address] * T4 TOTAL (02/23/2019 3:52 PM CDT) Pathologist [facility] T4 Total 7.1 5.3 - 11.7 mcg/dL [facility] Comment: Test Performed at: [facility] [place], [place] ??[phone] ADRIANNA HERRING DO,MPH Blood BLOOD SPECIMEN / Unknown 02/23/2019 3:52 PM CDT 02/23/2019 3:55 PM CDT Kandi Boyle APRN-[employer] LAB - CHEMISTRY ORDERABLES Performing Organization Address [facility] Co de Phone Number [facility] [address] [place] [address] * HEMOGLOBIN - POINT OF CARE (AMB) STL (02/23/2019) Pathologist [facility] Hemoglobin POCT 14.4 12.0 - 16.0 QC Verified Yes Yes Lot # [id number] Expiration Date 07/07/20 Blood BLOOD SPECIMEN / Unknown 02/23/2019 Kandi Boyle [employer] LAB - POINT OF CARE ORDERABLES * LIPID PROFILE+GLUCOSE - POINT OF CARE (AMB) (02/23/2019) Pathologist [facility] QC Verified Yes Yes Cholesterol POCT 180 200 mg/dl HDL POCT 61 mg/dL Triglycerides POCT 74 130 mg/dL LDL 104 130 mg/dl Non HDL Cholesterol POCT 119 145 mg/dL Total Cholesterol/HDL Ratio POCT 2.9 6.0 Glucose 85 70 - 126 mg/dL Blood BLOOD SPECIMEN / Unknown 02/23/2019 Kandi Boyle [employer] LAB - POINT OF CARE ORDERABLES * STREP A SCREEN (05/18/2018 7:30 PM CDT) Only the most recent of2 resultswithin the time period is included. [facility] Strep A Rapid POCT Negative Negative Strep A Internal Control Present Lot # [id number] Expiration Date 10/28/2019 Throat ENTIRE THROAT (SURFACE REGION OF NECK) / Unknown 05/18/2018 7:30 PM CDT Candi Bucio [employer]WORK[employer] LAB - POIN T OF CARE ORDERABLES * INFLUENZA A+B - POINT OF CARE (AMB) (05/18/2018 7:30 PM CDT) [facility] Influenza A Antigen Rapid Negative Negative Influenza B Antigen Rapid Negative Negative Influenza Internal Control present NEGATIVE - POSITIVE Influenza Lot Number [id number] Influenza Expiration Date 10/17/2019 Other NASOPHARYNGEAL SWAB / Unknown 05/18/2018 7:30 PM CDT Candi Bucio [employer] LAB - POIN T OF CARE ORDERABLES * (ABNORMAL) STREP A SCREEN DIRECT W RFLX STREP A CULTURE (07/24/2016 9:52 PM CONTRACT ATTORNEY) [facility] Strep A Rapid Positive(A ) Negative 07/24/2016 11:00 PM CONTRACT ATTORNEY [facility] Microbiology ENTIRE THROAT (SURFACE REGION OF NECK) / Unknown 07/24/2016 9:52 PM CONTRACT ATTORNEY 07/24/2016 10:51 PM CONTRACT ATTORNEY Pablo Barlow MD LAB - MICROBIOLO GY ORDERABLES [facility] [place] [address] Care Teams Hydramatic Specialist Relationship Specialty Start Date End Date Nata Conley MD [address] [place] [address] PCP - General Pediatrics 02/23/19
--- OUTSIDE RECORDS SUMMARY | 2024-08-25 04:25 | XMS_ITS | Encounter Summary ---
Author Organization [facility] Address [address] [place] [address] Care Team Providers Care Portable Sawyer Name Role Phone Nata Conley MD Primary Care Provider + [phone] Reason for Visit * Reason Comments Vaginal Bleeding Vomiting, vaginal bl eeding, lower back, lower abdominal pain since this morning. Pt reports 5 weeks . Encounter Details Date Type Department Care Team (Late st Contact Info) Description 04/16/2024 5:06 PM CDT - 04/16/2024 10:21 PM CDT Emergency ER at [facility] [address] [place] [address] [place] [address] [place] [address] Vaginal bleeding before 22 weeks gestation (HCC) (Primary Dx); RLQ abdominal pain Discharge Disposition: Home or Self Care Social [...] Mass Index 18.84 04/16/2024 5:04 PM CDT documented in this encounter Discharge Instructions * Discharge Instructions* Flo Moyer PA - 04/16/2024 8:56 PM CDT Ultrasound showed no evidence of ectopic Is showed a viable intrauterine I have referred you to Dr. Koehler if you need an OBGYN Follow up with the primary care provider in the meantime Return to Emergency Department if symptoms worsen or new symptoms arise. documented in this encounter Medications at Time of Discharge Medication Sig Dispensed Refills Start Date End Date azithromycin (Zithromax) 250 MG tabletIndications:Upper respiratory tract infection, unspecified type Take 2 tabs today, then 1 tab daily for next 4 days 6 tablet 06/23/2022 fluticasone propionate (Flonase) 50 MCG/ACT nasal sprayIndications:Dysfunct ion of left eustachian tube Rubicon 2 (two) sprays into each nostril once daily 16 g 12/30/2023 norgestimate-ethinyl estradiol (MONO-LINYAH) 0.25-35 MG-MCG tablet Take 1 tablet by mouth once daily 28 tablet 6 07/10/2020 documented as of this encounter ED Notes * Martita Tapia RN - 04/16/2024 6:13 PM CDT US notified HCG has resulted, will be at bedside in about 30 min per xray. * Flor Flower RN - 04/16/2024 5:23 PM CDT 23 y/o F arrived with abdominal cramping , back pain and vaginal bleeding. PT report she is currently 5 weeks . PT report she has only has used one pad today . Breathing is even and unlabored. IV and blood work obtained. Call light in reach. * Flo Moyer PA - 04/16/2024 5:11 PM CDT Carmen Tse [id number] [facility] History Chief Complaint Patient presents with Vaginal Bleeding Vomiting, vaginal bleeding, lower back, lower abdominal pain since this morning. Pt reports 5 weeks. Carmen Tse is a 23 year old female (; 1 ) who is approximately 5 weeks presentswith left lower quadrant pain, low back pain, vaginal bleeding since this morning. Has not been seen by OBGYN. Had 2 positive home tests a week ago. She thinks she is approximately 5 weeks based on last period. Today had nausea and vomiting, felt blood running down her leg. Stillhaving some bleeding. Denies history of bleeding disorders. Does not have an OBGYN. Continues to have nausea but no vomiting. Patient has been with the same partner, her boyfriend, for the past 3 years. Does not concerned about an STD. Past Medical History: Diagnosis Date NEGATIVE PAST MEDICAL HISTORY - SEE PROBLEM LIST Past Surgical History: Procedure Laterality Date NEGATIVE SURGICAL HISTORY Family History Problem Relation Name Age of Onset Other - Cardiac Father 1st [place] at age 42 Cancer - Other Father Renal Hypertension Father Hyperlipidemia Father CAD (Coronary Artery Disease) Father Other Maternal Grandmother PVD Other - Cardiac Maternal Grandfather at age 46 from V-fib Asthma Neg Hx Autoimmune Disease Neg Hx Bipolar Disorder Neg Hx Cancer - Breast Neg Hx Cancer - Colon Neg Hx Cancer - Ovarian Neg Hx Cancer - Pancreatic Neg Hx Cancer - Prostate Neg Hx Depression Neg Hx Eczema Neg Hx Migraine Neg Hx Seizures Neg Hx Sudd. <30 Neg Hx Thyroid Disease Neg Hx Osteoporosis Neg Hx Ulcerative Colitis Neg Hx Social History Socioeconomic History Marital status: Single Spouse name: Not on file Number of children: Not on file Years of education: Not on file Highest education level: Not on file Occupational History Not on file Tobacco Use Smoking status: Never Smokeless tobacco: Never Tobacco comments: non smoking household Vaping Use Vaping Use: Every day Substance and Sexual Activity Alcohol use: Yes Comment: social Drug use: Yes Types: Cocaine Sexual activity: Never Other Topics Concern Special Diet Not Asked Social History Narrative Lives with mom and 2 sisters. 1 dog. Dad not involved. Social Determinants of Health Financial Resource Strain: Not on file Food Insecurity: Not on file Transportation Needs: Not on file Stress: Not on file Housing Stability: Not on file Review of Systems Review of Systems Constitutional: Negative. HENT: Negative. Eyes: Negative. Respiratory: Negative. Cardiovascular: Negative. Gastrointestinal: Positive for abdominal pain (LLQ) and nausea. Negative for vomiting. Genitourinary: Vaginal bleeding Musculoskeletal: Negative. Skin: Negative. Neurological: Negative. All other systems reviewed and are negative. Physical Exam BP 125/74 Pulse 85 Temp 98.6 ??F (37 ??C) Resp 20 Ht 1.575 m (5' 2 ) Wt 46.7 kg (103 lb) LMP 02/08/2024 (Approximate) SpO2 97% BMI 18.84 kg/m?? Physical Exam Vitals (Tachycardic, vitals otherwise WNL) and nursing note reviewed. Constitutional: General: She is not in acute distress. Appearance: Normal appearance. She is normal weight. She is not ill-appearing, toxic-appearing or diaphoretic. Comments: Patient lying in exam bed, appears mildly anxious, in no acute distress, A&O x4 HENT: Nose: Nose normal. Eyes: Conjunctiva/sclera: Conjunctivae normal. Cardiovascular: Rate and Rhythm: Normal rate and regular rhythm. Pulses: Normal pulses. Heart sounds: Normal heart sounds. No murmur heard. No friction rub. No gallop. Pulmonary: Effort: Pulmonary effort is normal. No respiratory distress. Breath sounds: Normal breath sounds. No stridor. No wheezing, rhonchi or rales. Abdominal: General: Abdomen is flat. Tenderness: There is abdominal tenderness (LLQ). There is guarding. There is no rebound. Comments: Abdomen with left lower quadrant tenderness with guarding. No rebound. No right lower quadrant tenderness. No suprapubic tenderness. No epigastric tenderness. No distention or rigidity. Skin: General: Skin is warm. Capillary Refill: Capillary refill takes less than 2 seconds. Neurological: General: No focal deficit present. Mental Status: She is alert and oriented to person, place, and time. Current Outpatient Medications Medication Sig Dispense Refill azithromycin (Zithromax) 250 MG tablet Take 2 tabs today, then 1 tab daily for next 4 days (Patientnot taking: Reported on 07/21/2023) 6 tablet 0 fluticasone propionate (Flonase) 50 MCG/ACT nasal spray Rubicon 2 (two) sprays into each nostril oncedaily 16 g 0 norgestimate-ethinyl estradiol (MONO-LINYAH) 0.25-35 MG-MCG tablet Take 1 tablet by mouth once daily (Patient not taking: Reported on 06/23/2022) 28 tablet 6 Pertinent Labs: Labs Reviewed CBC W AUTO DIFFERENTIAL - Abnormal; Notable for the following components: Result Value WBC 11.8 (*) Monocyte Absolute 1.02 (*) All other components within normal limits COMPREHENSIVE METABOLIC PANEL - Abnormal; Notable for the following components: Chloride 108 (*) CO2 18 (*) All other components within normal limits HCG BETA BLOOD QUANTITATIVE Narrative: hCG Reference Range, mIU/mL: Non Females 0-6.0 Perimenopausal Females ages 41-55* 0-7.7 Postmenopausal Females age >55* 0-14 Females, Weeks after Last Menstrual Period 0.2-1 week 5-50 1 - 2 weeks 50-500 2 - 3 weeks 100-5000 3 - 4 weeks 500-10,000 4 - 5 weeks 1000-50,000 5 - 6 weeks 10,000-100,000 6 - 8 weeks 15,000-200,000 2 - 3 months 10,000-100,000 Trophoblastic Disease >100,000 *In higher than expected hCG in females > age 40, a serum FSH >20 IU/L makes unlikely. BLOOD TYPE ABO+ RH PANEL Images: US OB Less 14 Wks W Transv W Dopp Final Result PROCEDURE: US OB LESS 14 WKS W TRANSV W DOPP, DATE/TIME OF EXAM: 04/16/2024 7:48 PM, LOCATION [facility] INDICATION: R10.31: Right lower quadrant pain O20.9: [...] are noted. No adnexal masses are identified. IMPRESSION: 1.Single intrauterine gestation, corresponding to 6 weeks, 0 days. Follow-up examination is recommended at 18-20 weeks gestation for evaluation of anatomy. 2.Presumed corpus luteal cyst in the left ovary. Preliminary interpretation was provided by [facility]. > Interpreting Provider: Fitz Grier MD on 04/17/2024 10:48 AM Radiologist's report reviewed for all imaging. Any x-rays independently reviewed by Flo Moyer PA-C. ED Course as of 04/19/246 Sat Apr 16, 2024 1741 Labs notable for leukocytosis, hyperchloremia, low bicarb, no transaminitis, no LUPIS, no anemia[JW] 1801 ABO Rh: O POS [JW] 1810 HCG QUANT: 23,541.65 Approximately 5-6 weeks [JW] 2056 Patient signed out to Dr. Chase. Dispo pending official transvaginal US read. [JW] 2151 US OB Trans Abd and Trans Vag A single live intrauterine is noted. The estimated gestational age of 6 weeks and 0 days. The heart rate measures 142 BPM. No definite subchorionic hemorrhage is appreciated. The right ovary appears normal. There is a complex cystic structure within the left ovary, possibly a corpus luteum cyst [IF] 2151 Discussed reassuring ultrasound results with no evidence of ectopic, no tenderness, discussed strict return precautions, patient with no further questions or concerns [IF] ED Course User Index [IF] Johnnie Chase MD [JW] Flo Moyer PA Clinical Impressions as of 04/19/242045 RLQ abdominal pain Vaginal bleeding before 22 weeks gestation (HCC) Pulse Ox Interpretation by me: Saturation: (%) 97 Oxygen Delivery: Room air Interpretation: No hypoxia at this time. Rhythm strip interpretation by me: Normal sinus rhythm, no arrhythmia noted. Ventricular rate (bpm): 85 Medical Decision Making Note: 23-year-old female (; 1 ) who is approximately 5 weeks presents with vaginal bleeding. And not established care with OBGYN. On arrival patient clinically stable and nontoxic appearing. Vitals reassuring. On exam there was tenderness to the left lower quadrant with guarding but no rebound or distention. Initial workup showed white count of 11.8, but no anemia. Blood type, O positive. HCG 23,541 consistent with patient being around 5-6 weeks . This is a viable with heart rate in the 140s. No evidence of ectopic . This may be normal bleeding in early . Patient is in a monogamous relationship in his declining STD testing. No indication for inpatient evaluation. Patient clinically stable prior to discharge. Plan to follow-up with OBGYN. Return precautions discussed I discussed the results and plan including their disposition with the patient. I answered all questions to the best of my ability. The patient expresses understanding and is comfortable with the plan. DDx: Ectopic , miscarriage, UTI, STD, bleeding in early , other Data reviewed: All current, pertinent and timely studies (laboratory, imaging, and procedures) wereordered and results reviewed by Flo Moyer PA-C unless otherwise noted. Triage notes and available nursing notes reviewed. Previous medical record reviewed when available. Repeat vital signs reviewed. Amount and/or Complexity of Data Reviewed Clinical lab tests: ordered and reviewed Tests in the radiology section of CPT??: ordered and reviewed Review and summarize past medical records: yes Orders Placed This Encounter US OB Less 14 Wks W Transv W Dopp CBC W AUTO DIFFERENTIAL COMPREHENSIVE METABOLIC PANEL HCG BETA BLOOD QUANTITATIVE 0.9% NaCl IV bolus ondansetron (Zofran) injection 4 mg Diagnosis: Encounter Diagnoses Name Primary? RLQ abdominal pain Vaginal bleeding before 22 weeks gestation (HCC) Yes Pt is medically stable for d/c home at this time. I have given the patient instructions regarding her diagnosis, expectations, follow up, and return precautions. I explained to the patient that emergent conditions may arise and to return to the ER for new, worsening, or any persistent conditions. I've explained the importance of following up with her doctor--Nata Conley MD--(or the referral physician) as instructed. The patient verbalized understanding of the discharge instructions. I have advised the patient to follow-up with: Nata Conley MD [address] [facility] [address] Schedule an appointment as soon as possible for a visit As needed Paul Koehler MD [address] [facility] [address] [place] [address] Schedule an appointment as soon as possible for a visit To establish care with an OBGYN New Medications: Discharge Medication List as of 04/16/2024 9:58 PM Disposition: Discharge This note was partially dictated using [employer]MAL[employer] dictation software. Please excuse any typographical errors. documented in this encounter Miscellaneous Notes * Clinical References AVS - Flo Moyer PA - 04/16/2024 8:56 PM CDT Images from the original note were not included. [id number] Bleeding During Early If you?ve had bleeding early in your , you?re not alone. Many other women have early bleeding, too. And in most cases, nothing is wrong. But your healthcare provider still needs to know about it. They may want to do tests to find out why you?re bleeding. Call your provider if you see bleeding during . Tell your provider if your blood is Rh negative. Then they can figureout if you need anti-D immune globulin treatment. What causes early bleeding? The cause of bleeding early in is often unknown. But many factors early on in may lead to light bleeding (called spotting) or heavier bleeding. These include: ?? Having sex ?? When the embryo implants on the uterine wall ?? Bleeding between the sac membrane and the uterus (subchorionic bleeding) ?? loss (miscarriage) ?? The embryo implants outside of the uterus (ectopic ) If you see spotting Light bleeding is the most common type of bleeding in early . If you see it, call your healthcare provider. Chances are, they will tell you that you can care for yourself at home. If tests are needed Depending on how much you bleed, your healthcare provider may ask you to come in for some tests. A pelvic exam, for instance, can help see how far along your is. You also may have an ultrasound or a Doppler test. These imaging tests use sound waves to check the health of your baby. The ultrasound may be done on your belly or inside your vagina. You may also need a special blood test. This test compares your hormone levels in blood samples taken 2 days apart. The results can help your provider learn more about the implantation of the embryo. Your blood type will also need to be checked to assess if you will need to be treated for Rh sensitization. Ultrasound can help check the health of your fetus. Warning signs If your bleeding doesn?t stop or if you have any of the following, get medical care right away: ?? Soaking a sanitary pad each hour ?? Bleeding like you?re having a period ?? Cramping or severe belly pain ?? Feeling dizzy or faint ?? Tissue passing through your vagina ?? Bleeding at any time after the first trimester Questions you may be asked Bleeding early in isn't normal. But it is common. If you?ve seen any bleeding, you may beconcerned. But keep in mind that bleeding alone doesn?t mean something is wrong. Just be sure to call your healthcare provider right away. They may ask you questions like these to help find the causeof your bleeding: ?? When did your bleeding start? ?? Is your bleeding very light or is it like a period? ?? Is the blood bright red or brownish? ?? Have you had sex recently? ?? Have you had pain or cramping? ?? Have you felt dizzy or faint? Monitoring your Bleeding will often stop as quickly as it began. Your may go on a normal path again. You may need to make a few extra visits. But you and your baby will most likely be fine. Last Reviewed Date: 2021 ?? [id number] [employer]. All rights reserved. This information is not intended as a substitute for professional medical care. Always follow your healthcare professional's instructions. documented in this encounter Plan of Treatment Not on file documented as of this encounter Goals Goal Patient Goal Type Associated Problems Recent Progress Patient-Stated? 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 Preliminary interpretation was provided by [facility]. > Interpreting Provider: Fitz Grier MD on 04/17/2024 10:48 AM Narrative 04/17/2024 10:48 AM CDT PROCEDURE: ??US OB LESS 14 WKS W TRANSV W DOPP, DATE/TIME OF EXAM: 04/16/2024 7:48 PM, LOCATION ??[facility] INDICATION: R10.31: Right lower quadrant pain O20.9: [...] DATE/TIME OF EXAM: 04/16/2024 7:48 PM, LOCATION [facility] INDICATION: R10.31: Right lower quadrant pain O20.9: [...] left ovary. Preliminary interpretation was provided by [facility]. > Interpreting Provider: Fitz Grier MD on 04/17/2024 10:48 AM Flo HILL ORDERABLES * BLOOD TYPE ABO+ RH PANEL (04/16/2024 5:21 PM CDT) ABO Rh O POS 04/16/2024 5:5 6 PM CDT [facility] Blood BLOOD SPECIMEN / Unknown Venipuncture / Unknown 04/16/2024 5:21 PM CDT 04/16/2024 5:24 PM CDT Mikael Alas PA-C LAB - BLOOD BANK ORD ERABLES [facility] [place], [place] [address] [phone] * HCG BETA BLOOD QUANTITATIVE (04/16/2024 5:21 PM CDT) hCG Quantitative 23,541.65 mIU/mL 04/16/20 6:06 PM CDT [facility] Blood BLOOD SPECIMEN / Unknown Venipuncture / Unknown 04/16/2024 5:21 PM CDT 04/16/2024 5:24 PM CDT Narrative [facility] - 04/16/2024 6:06 PM CDT [...] Alas PA-C LAB - CHEMISTRY MEIR CHUNG [facility] [address] [id number] * (ABNORMAL) COMPREHENSIVE METABOLIC PANEL (04/16/2024 5:21 PM CDT) Glucose 73 70 - 105 mg/dL 04/16/2024 5:40 PM CDT [facility] Sodium 138 136 - 145 mmol/L 04/16/2024 5:40 PM CDT [facility] Potassium 3.5 3.5 - 5.1 mmol/L 04/16/2024 5:40 PM CDT [facility] Chloride 108(H) 98 - 107 mmol/L 04/16/2024 5:40 PM CDT [facility] CO2 18(L) 22 - 29 mmol/L 04/16/2024 5:40 PM CDT [facility] Calcium 9.5 8.4 - 10.4 mg/dL 04/16/2024 5:40 PM CDT [facility] Anion Gap 12 6 - 16 mmol/L 04/16/2024 5:40 PM CDT [facility] BUN 6 5.3 - 18.7 mg/dL 04/16/2024 5:40 PM CDT [facility] Creatinine 0.62 0.57 - 1.11 mg/dL 04/16/2024 5:40 PM CDT [facility] Alkaline Phosphatase 57 40 - 150 U/L 04/16/2024 5:40 PM CDT [facility] ALT 9 0 - 55 U/L 04/16/2024 5:40 PM CDT [facility] AST 14 5 - 34 U/L 04/16/2024 5:40 PM CDT [facility] Protein Total 7.4 6.4 - 8.3 gm/dL 04/16/2024 5:40 PM CDT [facility] Albumin 4.1 3.4 - 5.0 gm/dL 04/16/2024 5:40 PM CDT [facility] Bilirubin Total 0.4 0.2 - 1.2 mg/dL 04/16/2024 5:40 PM CDT [facility] eGFR by CKD-EPI >90 >=90 mL/min/1.7 3 m2 04/16/2024 5:40 PM T [facility] Blood BLOOD SPECIMEN / Unknown Venipuncture / Unknown 04/16/2024 5:21 PM CDT 04/16/2024 5:24 PM CDT Mikael Alas PA-C LAB - CHEMISTRY MEIR Wood Organization Address City/State/ZIP Co de Phone Number [facility] [address] [place] [phone] * (ABNORMAL) CBC W AUTO DIFFERENTIAL (04/16/2024 5:21 PM CDT) WBC 11.8(H) 4.0 - 10.7 x10E9/L 04/16/2024 5:27 PM CDT [facility] RBC Count 4.91 3.90 - 5.20 x10E12/L 04/16/2024 5:27 PM CDT [facility] Hemoglobin 13.3 11.9 - 15.8 g/dL 04/16/2024 5:27 PM CDT [facility] Hematocrit 40.5 34.8 - 46.1 % 04/16/2024 5:27 PM CDT [facility] MCV 82.5 80.0 - 98.0 fL 04/16/2024 5:27 PM CDT [facility] MCH 27.1 26.7 - 33.6 pg 04/16/2024 5:27 PM CDT [facility] MCHC 32.8 31.7 - 36.3 g/dL 04/16/2024 5:27 PM CDT [facility] RDW-CV 14.3 11.3 - 14.8 % 04/16/2024 5:27 PM CDT [facility] Platelet Count 351 150 - 420 x10E9/L 04/16/2024 5:27 PM CDT [facility] MPV 9.5 7.8 - 11.4 fL 04/16/2024 5:27 PM CDT [facility] Neutrophil % 62.1 41.0 - 74.0 % 04/16/2024 5:27 PM CDT [facility] Lymphocyte % 26.9 17.0 - 47.0 % 04/16/2024 5:27 PM CDT [facility] Monocyte % 8.6 3.0 - 11.0 % 04/16/2024 5:27 PM CDT [facility] Eosinophil % 1.3 0.0 - 7.0 % 04/16/2024 5:27 PM CDT [facility] Basophil % 0.8 0.0 - 1.6 % 04/16/2024 5:27 PM CDT [facility] Immature Granulocytes % 0.3 0.0 - 1.0 % 04/16/2024 5:27 PM CDT [facility] Neutrophil Absolute 7.35 1.60 - 7.50 x10E9/L 04/16/2024 5:27 PM CDT [facility] Lymphocyte Absolute 3.18 1.00 - 4.40 x10E9/L 04/16/2024 5:27 PM CDT [facility] Monocyte Absolute 1.02(H) 0.15 - 1.00 x10E9/L 04/16/2024 5:27 PM CDT [facility] Eosinophil Absolute 0.15 0.00 - 0.60 x10E9/L 04/16/2024 5:27 PM CDT [facility] Basophil Absolute 0.10 0.00 - 0.13 x10E9/L 04/16/2024 5:27 PM CDT [facility] Blood BLOOD SPECIMEN / Unknown Venipuncture / Unknown 04/16/2024 5:21 PM CDT 04/16/2024 5:24 PM CDT Mikael Alas PA-C LAB - HEMATOLOGY ORD ERABLES Performing Organization Address City/State/[facility] Co de Phone Number [facility] [address] [facility] [place] [address] documented in this encounter Visit Diagnoses Diagnosis Vaginal bleeding before 22 weeks gestation (HCC)- Primary Unspecified hemorrhage in early , unspecified as to episode of care RLQ abdominal pain Abdominal pain, right lower quadrant documented in this encounter Administered Medications Inactive Administered Medications - up to 3 most recent administrations Medication Order MAR Action Action Date Dose Rate Site 0.9% NaCl IV bolus 1,000 mL, at 1,935.48 mL/hr, Administer over 31 Minutes, NOW, 1 dose, On 04/16/24 at 2000 $ New Bag/Syringe 04/16/2024 8:07 PM CDT 1,000 mL 1935.48 mL/hr ondansetron (Zofran) injection 4 mg 4 mg, Intravenous, NOW, 1 dose, On 04/16/24 at 1999, Administer over 2 to 5 minutes. $ Given 04/16/2024 8:07 PM CDT 4 mg documented in this encounter Active and Recently Administered Medications Times are shown in CDT. Scheduled Medication Order 04/14/2024 04/15/2024 04/16/2024 0.9% NaCl IV bolus (COMPLETED) 1,000 mL, at 1,935.48 mL/hr, Administer over 31 Minutes, NOW, 1 dose, On 04/16/24 at 1999 2006 ($ New Bag/Syri nge - Provider: Martita Tapia, SARA)2037 (Stopped - Provider: Martita Tapia, SARA) ondansetron (Zofran) injection 4 mg (COMPLETED) 4 mg, Intravenous, NOW, 1 dose, On 04/16/24 at 1999, Administer over 2 to 5 minutes. 2006 ($ Given - Prov ider: Martita Tapia, SARA) documented in this encounter Care Teams Portable Sawyer Relationship Specialty Start Date End Date Nata Conley MD [address] [place] [address] PCP - General Pediatrics 02/23/19 documented as of this encounter
--- OUTSIDE RECORDS SUMMARY | 2024-08-25 04:25 | XMS_ITS | Encounter Summary ---
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
--- OUTSIDE RECORDS SUMMARY | 2024-08-25 04:25 | XMS_ITS | Encounter Summary ---
Author Organization [facility] Address [address] [place] [address] Care Team Providers Care Water Taxi Ferry Operator Name Role Phone Rashi Melo MD Primary Care Provider [phone] Reason for Visit * Reason Onset Date Comments Follow-up 05/20/2018 Encounter Details Date Type Department Care Team (Late st Contact Info) Description 05/20/2018 Telephone [facility] [address] [address] Lisa Ledesma APRN-CNP [address] [place] [address] Follow-up Social History Tobacco Use Types Packs/Day [...] encounter Miscellaneous Notes * Telephone Encounter - Lisa Ledesma APRN-CNP - 05/20/2018 1:48 PM CDT Left message to contact [phone] for any questions or concerns. documented in this encounter Plan of Treatment Not on file documented as of this encounter Visit Diagnoses Not on filedocumented in this encounter Care Teams Water Taxi Ferry Operator Relationship Specialty Start Date End Date Rashi Melo MD [address] [place] [phone] PCP - General Pediatrics 07/24/16 02/22/19 documented as of this encounter
--- OUTSIDE RECORDS SUMMARY | 2024-08-25 04:25 | XMS_ITS | Encounter Summary ---
Author Organization [facility] Address [address] [place] [address] Care Team Providers Care Directory Clerk Name Role Phone Nata Conley MD Primary Care Provider [phone] Reason for Visit * Reason Onset Date Comments Appointment 05/31/2020 Encounter Details Date Type Department Care Team (Late st Contact Info) Description 05/31/2020 Telephone [facility] - Pediatrics [address] [facility] [address] [place] [address] Nata Conley MD [address] [place] [address] Appointment Social History Tobacco Use Types Packs/Day Years [...] encounter Miscellaneous Notes * Telephone Encounter - Rick Chaves - 05/31/2020 8:54 AM CDT There's no numbers in this patients chart. If mom calls please schedule a wellness visit or get an updated phone number. * Telephone Encounter - Birgit Lundberg RN - 05/31/2020 8:17 AM CDT Pt is due for [facility] with Dr Conley. Thanks. documented in this encounter Plan of Treatment Not on file documented as of this encounter Goals Goal Patient Goal Type Associated Problems Recent Progress Patient-Stated? Author Use safety retraint in car Lifestyle On track( 020 1:40 PM SPORTS NUTRITIONIST) No Irais Rios documented as of this encounter Visit Diagnoses Not on filedocumented in this encounter Care Teams Directory Clerk Relationship Specialty Start Date End Date Nata Conley MD [address] [place] [address] PCP - General Pediatrics 02/23/19 documented as of this encounter
--- OUTSIDE RECORDS SUMMARY | 2024-08-25 07:45 | XMS_ITS | Referral Summary ---
Author Organization [email or web address] Address [address] [place] [address] Care Team Providers Care Metal Extrusion Supervisor Name Role Phone Nata Conley MD Primary Care Provider [phone] Source Comments [email or web address],non-owned Affiliates and Associated Physician Practices is amultiple site organization consisting of ambulatory clinics and hospital sitesin [place], [place], [place] and [place]. This disclosure is being madepursuant to the Care Everywhere program and may not contain all information available regarding this patient. Last updated 18.[email or web address] Allergies No known active allergies Medications * [...] nasal sprayIndications:Dy sfunction of left eustachian tube [place] 2 (two) sprays into each nostril once daily 16 g 12/30/2023 Active Active Problems Problem Noted Date Diagnosed Date [facility] (well child check) 02/24/2019 Overview (02/24/2019): 18 yo 02/23/19 (Establish care) Weight loss 02/24/2019 Overview (02/24/2019): 02/23/19 TSH, Free T4, CBC, CMP, Ammonia, Celiac panel Smoker 02/24/2019 Overview (02/24/2019): 02/23/19-Patient reports to [facility] daily since December 2017. Comments [...] car Lifestyle On track( 020 1:40 PM PATIENT CARE ASSISTANT) No Irais Rios Care Teams Metal Extrusion Supervisor Relationship Specialty Start Date End Date Nata Conley MD [address] [place] [phone] PCP - General Pediatrics 02/23/19
--- OUTSIDE RECORDS SUMMARY | 2024-08-25 07:45 | XMS_ITS | Clinical Summary ---
Author Organization [facility] Address [address] [place] [address] Care Team Providers Care Track Announcer Name Role Phone Nata Conley MD Primary Care Provider [phone] Source Comments [facility],non-owned Affiliates and Associated Physician Practices is amultiple site organization consisting of ambulatory clinics and hospital sitesin [place], [place], [place] and [place]. This disclosure is being madepursuant to the Care Everywhere program and may not contain all information available regarding this patient. Last updated 18.[facility] Allergies No known active allergies Medications * [...] nasal sprayIndications:Dy sfunction of left eustachian tube [place] 2 (two) sprays into each nostril once daily 16 g 12/30/2023 Active Active Problems Problem Noted Date Diagnosed Date [facility] (well child check) 02/24/2019 Overview (02/24/2019): 18 yo 02/23/19 (Establish care) Weight loss 02/24/2019 Overview (02/24/2019): 02/23/19 TSH, Free T4, CBC, CMP, Ammonia, Celiac panel Smoker 02/24/2019 Overview (02/24/2019): 02/23/19-Patient reports to [facility] daily since December 2017. Comments Yes [...] Hypertension Father Other - Cardiac Father 1st [place] at ag e 44 Other - Cardiac [...] car Lifestyle On track( 020 1:40 PM IT COMMUNICATIONS SPECIALIST) Irais Car Care Teams Track Announcer Relationship Specialty Start Date End Date Nata Conley MD [address] [place] [address] PCP - General Pediatrics 02/23/19
--- OUTSIDE RECORDS SUMMARY | 2024-08-25 07:45 | XMS_ITS | Encounter Summary ---
Author Organization [facility] Address [address] [place] [address] Care Team Providers Care Food Service Coordinator Name Role Phone Nata Conley MD [...] car Lifestyle On track( 020 1:40 PM RISK CONSULTING TREASURY DIRECTOR) No Irais Rios documented as of this encounter Visit Diagnoses Not on filedocumented in this encounter Care Teams Food Service Coordinator Relationship Specialty Start Date End Date Nata Conley MD [address] [place] [address] PCP - General Pediatrics 02/23/19 documented as of this encounter
--- OUTSIDE RECORDS SUMMARY | 2024-08-25 07:45 | XMS_ITS | Patient Health Summary ---
Author Organization [facility] Address [address] [place] [address] Care Team Providers Care Workforce Advisor Name Role Phone Nata Conley MD Primary Care Provider [phone] Note from [facility],non-owned Affiliates and Associated Physician Practices is amultiple site organization consisting of ambulatory clinics and hospital sitesin [place], [place], [place] and [place]. This disclosure is being madepursuant to the Care Everywhere program and may not contain all information available regarding this patient. Last updated 18.[facility] Allergies No known active allergies Medications [...] propionate (Flonase) 50 MCG/ACT nasal spray(Started 12/30/2023) [place] 2 (two) sprays into each nostril once [...] left ovary. Preliminary interpretation was provided by [facility]. > Interpreting Provider: Fitz Grier MD on 04/17/2024 10:48 AM Narrative 04/17/2024 10:48 AM CDT PROCEDURE: ??US OB LESS 14 WKS W TRANSV W DOPP, DATE/TIME OF EXAM: 04/16/2024 7:48 PM, LOCATION ??[facility] INDICATION: R10.31: Right lower quadrant pain O20.9: [...] DATE/TIME OF EXAM: 04/16/2024 7:48 PM, LOCATION [facility] INDICATION: R10.31: Right lower quadrant pain O20.9: [...] left ovary. Preliminary interpretation was provided by [facility]. > Interpreting Provider: Fitz Grier MD on 04/17/2024 10:48 AM [facility] ORDERABLES * BLOOD TYPE ABO+ RH PANEL (04/16/2024 5:21 PM CDT) ABO Rh O POS 04/16/2024 5:5 6 PM CDT [facility] Blood BLOOD SPECIMEN / Unknown Venipuncture / Unknown 04/16/2024 5:21 PM CDT 04/16/2024 5:24 PM CDT Mikael Alas PA-C LAB - BLOOD BANK ORD ERABLES [facility] [address] [place] [address], [facility] [phone] * (ABNORMAL) CBC W AUTO DIFFERENTIAL (04/16/2024 5:21 PM CDT) Only the most recent of2 resultswithin the time period is included. WBC 11.8(H) 4.0 - 10.7 x10E9/L 04/16/2024 5:27 PM CDT [facility] RBC Count 4.91 3.90 - 5.20 x10E12/L 04/16/2024 5:27 PM CDT [facility] Hemoglobin 13.3 11.9 - 15.8 g/dL 04/16/2024 5:27 PM CDT [facility] Hematocrit 40.5 34.8 - 46.1 % 04/16/2024 5:27 PM CDT [facility] MCV 82.5 80.0 - 98.0 fL 04/16/2024 5:27 PM CDT [facility] MCH 27.1 26.7 - 33.6 pg 04/16/2024 5:27 PM CDT [facility] MCHC 32.8 31.7 - 36.3 g/dL 04/16/2024 5:27 PM CDT [facility] RDW-CV 14.3 11.3 - 14.8 % 04/16/2024 5:27 PM CDT [facility] Platelet Count 351 150 - 420 x10E9/L 04/16/2024 5:27 PM CDT [facility] MPV 9.5 7.8 - 11.4 fL 04/16/2024 5:27 PM CDT [facility] Neutrophil % 62.1 41.0 - 74.0 % 04/16/2024 5:27 PM CDT [facility] Lymphocyte % 26.9 17.0 - 47.0 % 04/16/2024 5:27 PM CDT [facility] Monocyte % 8.6 3.0 - 11.0 % 04/16/2024 5:27 PM CDT [facility] Eosinophil % 1.3 0.0 - 7.0 % 04/16/2024 5:27 [facility] Basophil % 0.8 0.0 - 1.6 % 04/16/2024 5:27 PM [facility] Immature Granulocytes % 0.3 0.0 - 1.0 % 04/16/2024 5:27 PM [facility] Neutrophil Absolute 7.35 1.60 - 7.50 x10E9/L 04/16/2024 5:27 PM [facility] Lymphocyte Absolute 3.18 1.00 - 4.40 x10E9/L 04/16/2024 5:27 PM [facility] Monocyte Absolute 1.02(H) 0.15 - 1.00 x10E9/L 04/16/2024 5:27 PM [facility] Eosinophil Absolute 0.15 0.00 - 0.60 x10E9/L 04/16/2024 5:27 PM [facility] Basophil Absolute 0.10 0.00 - 0.13 x10E9/L 04/16/2024 5:27 PM [facility] Blood BLOOD SPECIMEN / Unknown Venipuncture / Unknown 04/16/2024 5:21 PM CDT 04/16/2024 5:24 PM CDT Mikael Alas PA-C LAB - HEMATOLOGY ORD ERABLES [facility] [address] [address] * (ABNORMAL) COMPREHENSIVE METABOLIC PANEL (04/16/2024 5:21 PM CDT) Only the most recent of2 resultswithin the time period is included. [facility] Glucose 73 70 - 105 mg/dL 04/16/2024 5:40 PM [facility] Sodium 138 136 - 145 mmol/L 04/16/2024 5:40 PM [facility] Potassium 3.5 3.5 - 5.1 mmol/L 04/16/2024 5:40 PM [facility] Chloride 108(H) 98 - 107 mmol/L 04/16/2024 5:40 PM [facility] CO2 18(L) 22 - 29 mmol/L 04/16/2024 5:40 PM [facility] Calcium 9.5 8.4 - 10.4 mg/dL 04/16/2024 5:40 PM [facility] Anion Gap 12 6 - 16 mmol/L 04/16/2024 5:40 PM [facility] BUN 6 5.3 - 18.7 mg/dL 04/16/2024 5:40 PM [facility] Creatinine 0.62 0.57 - 1.11 mg/dL 04/16/2024 5:40 PM [facility] Alkaline Phosphatase 57 40 - 150 U/L 04/16/2024 5:40 PM [facility] ALT 9 0 - 55 U/L 04/16/2024 5:40 PM [facility] AST 14 5 - 34 U/L 04/16/2024 5:40 PM [facility] Protein Total 7.4 6.4 - 8.3 gm/dL 04/16/2024 5:40 PM [facility] Albumin 4.1 3.4 - 5.0 gm/dL 04/16/2024 5:40 PM [facility] Bilirubin Total 0.4 0.2 - 1.2 mg/dL 04/16/2024 5:40 PM [facility] eGFR by CKD-EPI >90 >=90 mL/min/1.7 3 m2 04/16/2024 5:40 PM [facility] Blood BLOOD SPECIMEN / Unknown Venipuncture / Unknown 04/16/2024 5:21 PM CDT 04/16/2024 5:24 PM CDT Mikael Alas PA-C LAB - CHEMISTRY MEIR CHUNG [facility] [address] [address] * HCG BETA BLOOD QUANTITATIVE (04/16/2024 5:21 PM CDT) [facility] hCG Quantitative 23,541.65 mIU/mL 04/16/20 24 6:06 PM CDT [facility] Blood BLOOD SPECIMEN / Unknown Venipuncture / Unknown 04/16/2024 5:21 PM CDT 04/16/2024 5:24 PM CDT Narrative [facility] - 04/16/2024 6:06 PM CDT [...] Alas PA-C LAB - CHEMISTRY MEIR CHUNG [facility] Organization Address City/State/ZIP Co de Phone Number [facility] [address] [place] [address] * (ABNORMAL) HEMOGLOBIN - POINT OF CARE (AMB) (07/10/2020) Hemoglobin POCT 16.8(A) 11.0 - 14.0 gm/dL Blood BLOOD SPECIMEN / Unknown 07/10/2020 Chago Coates DO LAB - POINT OF CARE ORDERABLES * HCG URINE QUALITATIVE - POINT OF CARE (AMB) (02/25/2019) HCG Qual Urine Negative Negative QC Verified Yes Yes Urine URINE / Unknown 02/25/2019 Kandi Boyle MANAGER SOFTWARE DEVELOPMENT-BLOCK CABLEMAN LAB - POINT OF CARE ORDERABLES * [...] 463 mg/dL [facility] Comment: Test Performed at: [facility] [address] ?? EDIL GRIJALVA MD,PHD Blood BLOOD SPECIMEN / Unknown 02/23/2019 3:52 PM CDT 02/23/2019 3:55 PM CDT Kandi Boyle MANAGER SOFTWARE DEVELOPMENT-BLOCK CABLEMAN LAB - CHEMISTRY ORDERABLES Performing Organization Address [facility] de Phone Number [facility] [address] [place] [address] * AMMONIA (02/23/2019 3:52 PM CDT) Ammonia 48 < OR = 72 umol/L [facility] Comment: Test Performed at: [facility] [address] ??[id number] ADRIANNA HERRING DO,MPH Blood BLOOD SPECIMEN / Unknown 02/23/2019 3:52 PM CDT 02/23/2019 3:55 PM CDT Kandi Boyle MANAGER SOFTWARE DEVELOPMENT-BLOCK CABLEMAN LAB - CHEMISTRY ORDERABLES Performing Organization Address [facility] de Phone Number [facility] [id number] [place] [address] * TSH (02/23/2019 3:52 PM CDT) TSH 1.14 mIU/L [facility] Comment: ? Reference Range ? 1-19 Years 0.50-4.30 ? Ranges ? First trimester ?? 0.26-2.66 ? Second trimester ??0.55-2.73 ? Third trimester ?? 0.43-2.91 Test Performed at: [facility] [address] [place], [place] ??[id number] ADRIANNA HERRING DO,MPH Blood BLOOD SPECIMEN / Unknown 02/23/2019 3:52 PM CDT 02/23/2019 3:55 PM CDT Kandi Boyle MANAGER SOFTWARE DEVELOPMENT-BLOCK CABLEMAN LAB - CHEMISTRY ORDERABLES Performing Organization Address [facility] de Phone Number [facility] [address] [place] [address] * T4 TOTAL (02/23/2019 3:52 PM CDT) Pathologist [facility] T4 Total 7.1 5.3 - 11.7 mcg/dL [facility] Comment: Test Performed at: [facility] [place], [place] ??[id number] ADRIANNA HERRING DO,MPH Blood BLOOD SPECIMEN / Unknown 02/23/2019 3:52 PM CDT 02/23/2019 3:55 PM CDT Kandi Boyle APRN-BLOCK CABLEMAN LAB - CHEMISTRY ORDERABLES Performing Organization Address [facility] Co de Phone Number [facility] [address] [place] [address] * HEMOGLOBIN - POINT OF CARE (AMB) STL (02/23/2019) Pathologist [facility] Hemoglobin POCT 14.4 12.0 - 16.0 QC Verified Yes Yes Lot # [id number] Expiration Date 07/07/20 Blood BLOOD SPECIMEN / Unknown 02/23/2019 Kandi Boyle MANAGER SOFTWARE DEVELOPMENT-BLOCK CABLEMAN LAB - POINT OF CARE ORDERABLES * LIPID PROFILE+GLUCOSE - POINT OF CARE (AMB) (02/23/2019) Pathologist [facility] QC Verified Yes Yes Cholesterol POCT 180 200 mg/dl HDL POCT 61 mg/dL Triglycerides POCT 74 130 mg/dL LDL 104 130 mg/dl Non HDL Cholesterol POCT 119 145 mg/dL Total Cholesterol/HDL Ratio POCT 2.9 6.0 Glucose 85 70 - 126 mg/dL Blood BLOOD SPECIMEN / Unknown 02/23/2019 Kandi Boyle MANAGER SOFTWARE DEVELOPMENT-BLOCK CABLEMAN LAB - POINT OF CARE ORDERABLES * STREP A SCREEN (05/18/2018 7:30 PM CDT) Only the most recent of2 resultswithin the time period is included. [facility] Strep A Rapid POCT Negative Negative Strep A Internal Control Present Lot # [id number] Expiration Date 10/28/2019 Throat ENTIRE THROAT (SURFACE REGION OF NECK) / Unknown 05/18/2018 7:30 PM CDT Candi Bucio MANAGER SOFTWARE DEVELOPMENT-BLOCK CABLEMAN LAB - POIN T OF CARE ORDERABLES * INFLUENZA A+B - POINT OF CARE (AMB) (05/18/2018 7:30 PM CDT) [facility] Influenza A Antigen Rapid Negative Negative Influenza B Antigen Rapid Negative Negative Influenza Internal Control present NEGATIVE - POSITIVE Influenza Lot Number [id number] Influenza Expiration Date 10/17/2019 Other NASOPHARYNGEAL SWAB / Unknown 05/18/2018 7:30 PM CDT Candi Bucio MANAGER SOFTWARE DEVELOPMENT-BLOCK CABLEMAN LAB - POIN T OF CARE ORDERABLES * (ABNORMAL) STREP A SCREEN DIRECT W RFLX STREP A CULTURE (07/24/2016 9:52 PM CUSTOMER COUNTER ASSOCIATE) [facility] Strep A Rapid Positive(A ) Negative 07/24/2016 11:00 PM CUSTOMER COUNTER ASSOCIATE [facility] Microbiology ENTIRE THROAT (SURFACE REGION OF NECK) / Unknown 07/24/2016 9:52 PM CUSTOMER COUNTER ASSOCIATE 07/24/2016 10:51 PM CUSTOMER COUNTER ASSOCIATE Pablo Barlow MD LAB - MICROBIOLO GY ORDERABLES [facility] [place] [address] Care Teams Workforce Advisor Relationship Specialty Start Date End Date Nata Conley MD [address] [place] [address] PCP - General Pediatrics 02/23/19
--- OUTSIDE RECORDS SUMMARY | 2024-08-25 07:46 | XMS_ITS | Encounter Summary ---
Author Organization [facility] Address [address] [place] [address] Care Team Providers Care Viscose Cellar Worker Name Role Phone Nata Conley MD [...] car Lifestyle On track( 020 1:40 PM DITCH DIGGER) No Irais Rios documented as of this encounter Visit Diagnoses Not on filedocumented in this encounter Care Teams Viscose Cellar Worker Relationship Specialty Start Date End Date Nata Conley MD [address] [place] [phone] PCP - General Pediatrics 02/23/19 documented as of this encounter
--- OUTSIDE RECORDS SUMMARY | 2024-08-25 07:46 | XMS_ITS | Encounter Summary ---
Author Organization [facility] Address [address] [facility] [place] [address] Care Team Providers Care Gage Maker Name Role Phone Nata Conley MD Primary Care Provider [phone] Reason for Visit * Reason Comments Ear Problem Rash Encounter Details Date Type Department Care Team (Late st Contact Info) Description 12/30/2023 1:00 PM CDT Office Visit [facility] [address] [phone] Provider1, [facility] Dysfunction of left eustachian tube [...] Onset ??? Other - Cardiac Father 1st [place] at age 42 ??? Cancer - Other [...] propionate (Flonase) 50 MCG/ACT nasal spray Sig: [place] 2 (two) sprays into each nostril once [...] fluticasone propionate (Flonase) 50 MCG/ACT nasal spray [place] 2 (two) sprays into each nostril once [...] car Lifestyle On track( 020 1:40 PM MUSHROOM PRESS OPERATOR) No Irais Rios documented as of this encounter Visit Diagnoses Diagnosis Dysfunction of left eustachian tube- Primary Dysfunction of Eustachian tube documented in this encounter Care Teams Gage Maker Relationship Specialty Start Date End Date Nata Conley MD [address] [place] [address] PCP - General Pediatrics 02/23/19 documented as of this encounter
--- OUTSIDE RECORDS SUMMARY | 2024-08-25 07:47 | XMS_ITS | Encounter Summary ---
Author Organization [facility] Address [address] [place] [place] [address] Care Team Providers Care Butter Printer Name Role Phone Nata Conley MD Primary Care Provider [phone] Encounter Details Date Type Department Care Team [...] car Lifestyle On track( 020 1:40 PM PULP OPERATOR) No Irais Rios documented as of this encounter Visit Diagnoses Not on filedocumented in this encounter Care Teams Butter Printer Relationship Specialty Start Date End Date Nata Conley MD [address] [place] [phone] PCP - General Pediatrics 02/23/19 documented as of this encounter
--- OUTSIDE RECORDS SUMMARY | 2024-08-25 07:47 | XMS_ITS | Encounter Summary ---
Author Organization [facility] Address [address] [facility] [place] [address] Care Team Providers Care Dicer Machine Operator Name Role Phone Nata Conley MD Primary Care Provider [phone] Reason for Visit * Reason Comments Cough Ear Pain Yesterday morning Sore Throat Encounter Details Date Type Department Care Team (Late st Contact Info) Description 12/24/2023 2:30 PM CDT Office Visit [facility] [address] [phone] Provider1, [facility] Acute otitis media, unspecified otitis [...] this encounter Progress Notes * Taylor Tan, CONTRACTOR BUYER-DIAMOND CLEANER - 12/24/2023 2:43 PM CDT 12/24/2023 PCP: [...] Onset ??? Other - Cardiac Father 1st [place] at age 42 ??? Cancer - Other [...] and bulging. Nose: Nose normal. Mouth/Throat: Lips: [place]. Mouth: Mucous membranes are moist. Pharynx: Uvula [...] car Lifestyle On track( 020 1:40 PM AEROSPACE ENGINEER OFFICER ARMAMENT) No Irais Rios documented as of this encounter Visit Diagnoses Diagnosis Acute otitis media, unspecified otitis media type- Primary documented in this encounter Care Teams Dicer Machine Operator Relationship Specialty Start Date End Date Nata Conley MD [address] [place] [phone] PCP - General Pediatrics 02/23/19 documented as of this encounter
--- OUTSIDE RECORDS SUMMARY | 2024-08-25 07:47 | XMS_ITS | Encounter Summary ---
Author Organization [facility] Address [address] [place] [address] Care Team Providers Care Travel Guide Name Role Phone Nata Conley MD Primary Care Provider [phone] Reason for Visit * Reason Onset Date Comments Record Request 11/04/2023 Encounter Details Date Type Department Care Team (Late st Contact Info) Description 11/04/2023 Nurse Triage [facility] Medical [facility] - Pediatrics [address] [facility] [address] [place] [address] Nata Conley MD [address] [place] [address] Record Request Social History Tobacco [...] Eryn Jean-Baptiste RN - 11/04/2023 12:38 PM BUSINESS TECHNOLOGY ARCHITECT Mom calls to note patient needs a copy of her immunizations. No My Chart. Based on patient's age-advised patient requesting her records. Mom states that patient will come into office today or tomorrow to get a copy of records in person-no additional questions or concerns-note closed out. NESS TECHNOLOGY ARCHITECT documented in this encounter Plan of Treatment Not on file documented as of this encounter Goals Goal Patient Goal Type Associated Problems Recent Progress Patient-Stated? Author Use safety retraint in car Lifestyle On track( 020 1:40 PM BUSINESS TECHNOLOGY ARCHITECT) No Irais Rios documented as of this encounter Visit Diagnoses Not on filedocumented in this encounter Care Teams Travel Guide Relationship Specialty Start Date End Date Nata Conley MD [address] [place] [phone] PCP - General Pediatrics 02/23/19 documented as of this encounter
--- OUTSIDE RECORDS SUMMARY | 2024-08-25 07:48 | XMS_ITS | Encounter Summary ---
Author Organization [facility] Address [address] [facility] [place] [address] Care Team Providers Care Research Consultant Name Role Phone Nata Conley MD Primary Care Provider [phone] Reason for Visit * Reason Comments LABS ONLY Encounter Details Date Type Department Care Team (Latest Contact Info) Description 02/25/2019 10:15 AM CDT Clinical Support [facility] - Pediatrics [address] [facility] [address] [place] [phone] Encounter for other contraceptive management Social History [...] car Lifestyle On track( 020 1:40 PM ARCHITECT NAVAL) No Irais Rios documented as of this encounter Procedures Procedure Name Priority Date/Time Associated Diagnosis Comments HCG URINE QUALITATIVE - POINT OF CARE (AMB) Routine 02/25/2019 Encounter for other contraceptive management documented in this encounter Results * HCG URINE QUALITATIVE - POINT OF CARE (AMB) (02/25/2019) HCG Qual Urine Negative Negative QC Verified Yes Yes Urine URINE / Unknown 02/25/2019 Kandi Boyle DIRECTOR ORACLE DATABASE-LABORATORY EQUIPMENT INSTALLER LAB - POINT OF CARE ORDERABLES documented in this encounter Visit Diagnoses Diagnosis Encounter for other contraceptive management- Primary documented in this encounter Care Teams Research Consultant Relationship Specialty Start Date End Date Nata Conley MD [address] [place] [address] PCP - General Pediatrics 02/23/19 documented as of this encounter
--- OUTSIDE RECORDS SUMMARY | 2024-08-25 07:48 | XMS_ITS | Encounter Summary ---
Author Organization [facility] Address [address] [place] [address] Care Team Providers Care Mud Engineer Name Role Phone Nata Conley MD Primary Care Provider [phone] Encounter Details Date Type Department Care Team [...] car Lifestyle On track( 020 1:40 PM ASSISTANT MERCHANDISE MANAGER) No Irais Rios documented as of this encounter Visit Diagnoses Not on filedocumented in this encounter Care Teams Mud Engineer Relationship Specialty Start Date End Date Nata Conley MD [address] [place] [address] PCP - General Pediatrics 02/23/19 documented as of this encounter
--- OUTSIDE RECORDS SUMMARY | 2024-08-25 07:48 | XMS_ITS | Encounter Summary ---
Author Organization [facility] Address [address] [place] [address] Care Team Providers Care Training Associate Name Role Phone Nata Conley MD Primary Care Provider [phone] Reason for Visit * Reason Comments Sore Throat Nasal congestion, lo ss of voice X 3 days Encounter Details Date Type Department Care Team (Late st Contact Info) Description 06/23/2022 1:30 PM CDT Office Visit [facility] [address] [phone] Provider1, [facility] Upper respiratory tract infection, [...] this encounter Progress Notes * MelanyJulianna hobbs, TENNIS INSTRUCTOR-SIX SIGMA BLACK BELT ENGINEER - 06/23/2022 2:00 PM CDT 06/23/2022 PCP: [...] Onset ??? Other - Cardiac Father 1st GA at age 42 ??? Cancer - Other [...] nursing note reviewed. Exam conducted with a postal service window clerk present (mom). Constitutional: General: She is not [...] car Lifestyle On track( 020 1:40 PM VAULT INSTALLER) No Irais Rios documented as of this encounter Visit Diagnoses Diagnosis Upper respiratory tract infection, unspecified type- Primary documented in this encounter Care Teams Training Associate Relationship Specialty Start Date End Date Nata Conley MD [address] [place] [phone] PCP - General Pediatrics 02/23/19 documented as of this encounter
--- OUTSIDE RECORDS SUMMARY | 2024-08-25 07:48 | XMS_ITS | Encounter Summary ---
Author Organization [facility] Address [address] [facility] [place] [address] Care Team Providers Care Swift Tender Name Role Phone Nata Conley MD Primary Care Provider [phone] Reason for Visit * Reason Comments Refill Request Encounter Details Date Type Department Care Team (Late st Contact Info) Description 05/31/2020 Refill [facility] - Pediatrics [address] [facility] [address] [place] [phone] Nata Conley MD [address] [place] [address] Refill Request Social History Tobacco [...] 05/10/19 Please advise PT IS DUE FOR [facility]. MESSAGE SENT TO WAITER/WAITRESS ROOM SERVICE TO SCHEDULE. documented in this encounter Plan of Treatment Not on file documented as of this encounter Goals Goal Patient Goal Type Associated Problems Recent Progress Patient-Stated? Author Use safety retraint in car Lifestyle On track( 020 1:40 PM DAIRY PROCESSING EQUIPMENT OPERATOR) No Irais Rios documented as of this encounter Visit Diagnoses Not on filedocumented in this encounter Care Teams Swift Tender Relationship Specialty Start Date End Date Nata Conley MD [address] [place] [phone] PCP - General Pediatrics 02/23/19 documented as of this encounter
--- OUTSIDE RECORDS SUMMARY | 2024-08-25 07:48 | XMS_ITS | Encounter Summary ---
Author Organization [facility] Address [address] [facility] [place] [address] Care Team Providers Care Bowling Alley Attendant Name Role Phone Nata Conley MD Primary Care Provider [phone] Reason for Visit * Reason Comments Refill Request Encounter Details Date Type Department Care Team (Late st Contact Info) Description 05/10/2019 Refill [facility] - Pediatrics [address] [facility] [address] [place] [address] Nata Conley MD [address] [place] [address] Refill Request Social History Tobacco [...] 05/10/2019 12:14 PM CDT Refill request for Somervell-Linyah SHERWIN:02-23-19 Last refill:02-25-19 NOV:None scheduled Requested Prescriptions [...] car Lifestyle On track( 020 1:40 PM MATERIALS DIRECTOR) Irais Car documented as of this encounter Visit Diagnoses Not on filedocumented in this encounter Care Teams Bowling Alley Attendant Relationship Specialty Start Date End Date Nata Conley MD [address] [place] [address] PCP - General Pediatrics 02/23/19 documented as of this encounter
--- OUTSIDE RECORDS SUMMARY | 2024-08-25 07:48 | XMS_ITS | Encounter Summary ---
Author Organization [facility] Address [address] [place] [address] Care Team Providers Care Track Helper Name Role Phone Nata Conley MD Primary Care Provider Reason for Visit * Reason Comments Well Child Check 18 yo SKIN PROBLEM x1 year, progressive ly dry, rough patch of skin on neck Thyroid Problem x1 year, appetite ch shilpi, difficulty sleeping, weight loss, change in bowel habits Encounter Details Date Type Department Care Team (Late st Contact Info) Description 02/23/2019 1:00 PM CDT Office Visit [facility] Medical [facility] - Pediatrics [address] [place] [phone] Kandi Boyle, NURSING ASSOCIATE-[facility] [address] [place] [address] Well adolescent visit (Primary Dx); [...] (Z= -1.00) based on CDC 2-20 Years qnnqdj-bez-jtj data using vitals from 02/23/2019. Ht Readings from Last 1 Encounters: 02/23/19 1.61 m (5' 3.39 ) (40 %, Z= -0.26)* * Growth percentiles are based on CDC 2-20 Years data. 40 %ile (Z= -0.26) based on CDC 2-20 Years zrelpad-ssd-rsp data using vitals from 02/23/2019. IMMUNIZATIONS One [...] dishes 2. Prepare simple family meals 3. [place] leaves 4. Take the trash out for [...] The texts and phone calls can WAIT. [place] and [place] law, effective May 04, 2006, says your child must be in a booster seat if they are ages 4 through 7 who weigh at least 40 pounds, unless they are 80 pounds or 4???9?? tall. DO NOT ALLOW ANYONE TO SMOKE AROUND YOUR CHILD. DIET Make sure that your child is eating breakfast in the morning manager school. Encourage them to eat at least 3 [...] Where can I go for more information? [place] Academy [employer] Pediatrics ( ) www.aap.org, HealthyChildren.org www.healthychildren.org Website and free downloadable eliseo for smartphones: http://www.MyRooms Inc..Bit[employer] Lab/ and http://www.iCare Intelligence/ documented in this encounter Progress Notes * Kandi Boyle, NURSING ASSOCIATE-TURNER MACHINE - 02/23/2019 1:13 PM CDT Adolescent Well First Press Operator Visit Name: Carmen Tse Age: [age] year [...] The patient returns today for routine well school childcare attendant. Illnesses since our last visit include: Recent URI symptoms Menstrual: Menarche Yes Age, Regular Meds: Current Outpatient Prescriptions Medication Sig Dispense Refill ??? benzonatate (TESSALON) 200 MG capsule Take 1 capsule by mouth 3 times daily as needed for Cough(Patient not taking: Reported on 02/23/2019) 30 capsule 0 ??? fluticasone propionate (FLONASE) 50 MCG/ACT nasal spray [place] 2 sprays into each nostril once daily [...] (Z= -1.00) based on CDC 2-20 Years yvqjps-rwu-csq data using vitals from 02/23/2019. 40 %ile (Z= -0.26) based on CDC 2-20 Years lceywvg-iim-cds data using vitals from 02/23/2019. Physical Exam: [...] nutrition, well balanced diet, safety,and general well school childcare attendant. Patient counseled regarding avoiding alcohol, tobacco and [...] old female here for a 18 yo [facility] to establish care. documented in this encounter Plan of Treatment Not on file documented as of this encounter Goals Goal Patient Goal Type Associated Problems Recent Progress Patient-Stated? Author Use safety retraint in car Lifestyle On track( 020 1:40 PM PREPRESS SPECIALIST) No Irais Rios documented as of this [...] 463 mg/dL [facility] Comment: Test Performed at: [facility]/[address] ??[phone] EDIL GRIJALVA MD,PHD Blood BLOOD SPECIMEN / Unknown 02/23/2019 3:52 PM CDT 02/23/2019 3:55 PM CDT Kandi Boyle NURSING ASSOCIATE-TURNER MACHINE LAB - CHEMISTRY ORDERABLES Performing Organization Address [facility] Co de Phone Number [facility] [phone] [place] [address] * AMMONIA (02/23/2019 3:52 PM CDT) Pathologist [facility] Ammonia 48 < OR = 72 umol/L [facility] Comment: Test Performed at: [facility] ??[phone] ADRIANNA HERRING DO,MPH Blood BLOOD SPECIMEN / Unknown 02/23/2019 3:52 PM CDT 02/23/2019 3:55 PM CDT Kandi Boyle NURSING ASSOCIATE-[facility] LAB - CHEMISTRY ORDERABLES Performing Organization Address [facility] de Phone Number [facility] [address] [place] [address] * (ABNORMAL) COMPREHENSIVE METABOLIC PANEL (02/23/2019 3:52 PM CDT) Pathologist [facility] Glucose 119(H) 65 - 99 mg/dL [facility] [...] 32 U/L [facility] Comment: Test Performed at: [facility] [place] [address] [place], [place] ??[address] ADRIANNA HERRING DO,MPH Blood BLOOD SPECIMEN / Unknown 02/23/2019 3:52 PM CDT 02/23/2019 3:55 PM CDT Kandi GRANDA LAB - CHEMISTRY ORDERABLES Performing Organization Address [facility] Co de Phone Number [facility] [address] [place] [address] * (ABNORMAL) CBC WITH DIFFERENTIAL (02/23/2019 3:52 [...] 0.7 % [facility] Comment: Test Performed at: [facility] [address] [place], [place] ??[address] ADRIANNA HERRING DO,MPH Blood BLOOD SPECIMEN / Unknown 02/23/2019 3:52 PM CDT 02/23/2019 3:55 PM CDT Kandi DAVILATURNER MACHINE LAB - HEMATOLOG Y ORDERABLES Performing Organization Address [facility]/ZIP Co de Phone Number [facility] [phone] [place] [address] * T4 TOTAL (02/23/2019 3:52 PM CDT) Pathologist [facility] T4 Total 7.1 5.3 - 11.7 mcg/dL [facility] Comment: Test Performed at: [facility] [address] ??[phone] ADRIANNA HERRING DO,MPH Blood BLOOD SPECIMEN / Unknown 02/23/2019 3:52 PM CDT 02/23/2019 3:55 PM CDT Kandi Boyle NURSING ASSOCIATE-TURNER MACHINE LAB - CHEMISTRY ORDERABLES Performing Organization Address [facility] de Phone Number [facility] [phone] [place] [address] * TSH (02/23/2019 3:52 PM CDT) [facility] TSH 1.14 mIU/L [facility] Comment: ? Reference Range ? 1-19 Years 0.50-4.30 ? Ranges ? First trimester ?? 0.26-2.66 ? Second trimester ??0.55-2.73 ? Third trimester ?? 0.43-2.91 Test Performed at: [facility] ??[phone] ADRIANNA HERRING DO,MPH Blood BLOOD SPECIMEN / Unknown 02/23/2019 3:52 PM CDT 02/23/2019 3:55 PM CDT Kandi Boyle NURSING ASSOCIATE-TURNER MACHINE LAB - CHEMISTRY ORDERABLES Performing Organization Address [facility] de Phone Number [facility] [phone] [place] [address] * LIPID PROFILE+GLUCOSE - POINT OF CARE (AMB) (02/23/2019) QC Verified Yes Yes Cholesterol POCT 180 200 mg/dl HDL POCT 61 mg/dL Triglycerides POCT 74 130 mg/dL LDL 104 130 mg/dl Non HDL Cholesterol POCT 119 145 mg/dL Total Cholesterol/HDL Ratio POCT 2.9 6.0 Glucose 85 70 - 126 mg/dL Blood BLOOD SPECIMEN / Unknown 02/23/2019 Kandi Boyle APRN-TURNER MACHINE LAB - POINT OF CARE ORDERABLES * HEMOGLOBIN - POINT OF CARE (AMB) STL (02/23/2019) Hemoglobin POCT 14.4 12.0 - 16.0 QC Verified Yes Yes Lot # [id number] Expiration Date 07/07/20 Blood BLOOD SPECIMEN / Unknown 02/23/2019 Kandi Boyle APRN-TURNER MACHINE LAB - POINT OF CARE ORDERABLES documented [...] disease documented in this encounter Care Teams Track Helper Relationship Specialty Start Date End Date Nata Conley MD [address] [place] [phone] PCP - General Pediatrics 02/23/19 documented as of this encounter
--- OUTSIDE RECORDS SUMMARY | 2024-08-25 07:48 | XMS_ITS | Encounter Summary ---
Author Organization [facility] Address [address] [facility] [place] [address] Care Team Providers Care Educational Audiologist Name Role Phone Nata Conley MD Primary Care Provider [phone] Encounter Details Date Type Department Care Team (Latest Contact Info) Description 10/11/2020 9:00 AM HEALTH AND WELLNESS DIRECTOR Clinical Support [facility] Medical [facility] - Pediatrics [address] [facility] [address] [place] [phone] Need for vaccination Social History Tobacco Use [...] AM CST Pt here for HPV #3 TH AND WELLNESS DIRECTOR documented in this encounter Plan of Treatment Not on file documented as of this encounter Goals Goal Patient Goal Type Associated Problems Recent Progress Patient-Stated? Author Use safety retraint in car Lifestyle On track( 020 1:40 PM HEALTH AND WELLNESS DIRECTOR) No Irais Rios documented as of this encounter Visit Diagnoses Diagnosis Need for vaccination- Primary Need for prophylactic vaccination and inoculation against unspecified single disease documented in this encounter Care Teams Educational Audiologist Relationship Specialty Start Date End Date Nata Conley MD [address] [place] [phone] PCP - General Pediatrics 02/23/19 documented as of this encounter
--- OUTSIDE RECORDS SUMMARY | 2024-08-25 07:48 | XMS_ITS | Encounter Summary ---
Author Organization [facility] Address [address] [place] [address] Care Team Providers Care Scout Executive Name Role Phone Nata Conley MD Primary Care Provider [phone] Reason for Visit * Reason Comments Well Child Check 19yr Encounter Details Date Type Department Care Team (Latest Contact Info) Description 07/10/2020 1:45 PM GALLERY ASSISTANT Office Visit [facility] Medical [facility] - Pediatrics [address] [facility] [address] [place] [address] Chago Coates, DO [address] [place] [address] Encounter for routine child health [...] Comments Blood Pressure 100/62 07/10/2020 1:38 PM GALLERY ASSISTANT Pulse - - Temperature 36.6 ??C (97.9 ??F) 07/10/2020 1:38 PM CS T Respiratory Rate - - Oxygen Saturation - - Inhaled Oxygen Concentration - - Weight 51.6 kg (113 lb 12.8 oz) 07/10/2020 1:38 PM GALLERY ASSISTANT Height 161.1 cm (5' 3.43 ) 07/10/2020 1:38 PM CS T Body Mass Index 19.89 07/10/2020 1:38 PM GALLERY ASSISTANT Body Mass Index Percentile 32.42% 07/10/2020 1:3 8 PM GALLERY ASSISTANT Growth Chart: CDC (Girls, 2- 20 Years) documented in this encounter Patient Instructions * Patient Instructions* Luis Luz MA - 07/10/2020 1:40 PM GALLERY ASSISTANT YOUR GROWING CHILD: 15 TO 17 YEARS [...] -0.54) based on CDC (Girls, 2-20 Years) pdrttj-dqb-ylb data using vitals from 07/10/2020. Ht Readings from Last 1 Encounters: 07/10/20 1.611 m (5' 3.43 ) (38 %, Z= -0.31)* * Growth percentiles are based on CDC (Girls, 2-20 Years) data. 38 %ile (Z= -0.31) based on CDC (Girls, 2-20 Years) Phravls-itj-svr data based on Stature recorded on 07/10/2020. [...] dishes 2. Prepare simple family meals 3. [place] leaves 4. Take the trash out for [...] The texts and phone calls can WAIT. [place] and [place] law, effective May 04, 2006, says your child must be in a booster seat if they are ages 4 through 7 who weigh at least 40 pounds, unless they are 80 pounds or 4???9?? tall. DO NOT ALLOW ANYONE TO SMOKE AROUND YOUR CHILD. DIET Make sure that your child is eating breakfast in the morning middle school director. Encourage them to eat at least 3 [...] I go for more information? [place] Of [place] Academy of Pediatrics ( ) www.aap.org, HealthyChildren.org www.healthychildren.org Website and free downloadable eliseo for smartphones: http://www.myZamana.Social & Beyond/ and http://www.Medgenics/ ERY ASSISTANT documented in this encounter Progress Notes * Chago Coates DO - 07/10/2020 1:45 PM CST Adolescent Well Tester Regulator Visit Name: Carmen Tse Age: [age] year old Accompanied By: Mother Chief Complaint Patient presents with ??? Well Child Check 19yr Concerns: Taking OCPs and needs refills. Not having issues with current prescription. Interim Illness: The patient returns today for routine well childcare worker. Illnesses since our last visit include: none [...] -0.54) based on CDC (Girls, 2-20 Years) zrndsm-wdh-kvf data using vitals from 07/10/2020. 38 %ile (Z= -0.31) based on CDC (Girls, 2-20 Years) Dgjahxl-dft-agi data based on Stature recorded on 07/10/2020. [...] 11.0 - 14.0 gm/dL Impression / Plan: Camren Tse is here for her adolescent well child check and has normal growth with good interval weight gain and normal development. - HPV #2 - Administered Flu Vaccine - Hemoglobin WNL - Dental referral for prevention - Age appropriate anticipatory guidance provided, including well child information, nutrition, wellbalanced diet, safety, and general well childcare worker. Patient counseled regarding avoiding alcohol, tobacco and drugs. - Return for next well child check; sooner if concerns arise. Contraception -- Patient on OCPs and not having any issues. Counseling provided on methods of contraception, risk, and benefits. Refills provided. Next Appointment: 1 year ERY ASSISTANT documented in this encounter Plan of Treatment Not on file documented as of this encounter Goals Goal Patient Goal Type Associated Problems Recent Progress Patient-Stated? Author Use safety retraint in car Lifestyle On track( 020 1:40 PM GALLERY ASSISTANT) No Irais Rios documented as of this [...] pill documented in this encounter Care Teams Scout Executive Relationship Specialty Start Date End Date Nata Conley MD [address] [place] [phone] PCP - General Pediatrics 02/23/19 documented as of this encounter
--- OUTSIDE RECORDS SUMMARY | 2024-08-25 07:48 | XMS_ITS | Encounter Summary ---
Author Organization [facility] Address [address] [place] [address] Care Team Providers Care Butt Sawyer Name Role Phone Nata Conley MD Primary Care Provider [phone] Reason for Visit * Reason Onset Date Comments Appointment 05/31/2020 Encounter Details Date Type Department Care Team (Late st Contact Info) Description 05/31/2020 Telephone [facility] - Pediatrics [address] [facility] [address] [place] [address] Nata Conley MD [address] [place] [address] Appointment Social History Tobacco Use [...] 8:17 AM CDT Pt is due for [facility] with Dr Conley. Thanks. documented in this encounter Plan of Treatment Not on file documented as of this encounter Goals Goal Patient Goal Type Associated Problems Recent Progress Patient-Stated? Author Use safety retraint in car Lifestyle On track( 020 1:40 PM VISUAL MERCHANDISING ASSISTANT) No Irais Rios documented as of this encounter Visit Diagnoses Not on filedocumented in this encounter Care Teams Butt Sawyer Relationship Specialty Start Date End Date Nata Conley MD [address] [place] [address] PCP - General Pediatrics 02/23/19 documented as of this encounter
--- OUTSIDE RECORDS SUMMARY | 2024-08-25 07:48 | XMS_ITS | Encounter Summary ---
Author Organization [facility] Address [address] [facility] [place] [address] Care Team Providers Care Machine Shorthand Reporter Name Role Phone Nata Conley MD Primary [...] car Lifestyle On track( 020 1:40 PM ROUTE PROCESS ADMINISTRATOR) No Irais Rios documented as of this encounter Visit Diagnoses Not on filedocumented in this encounter Care Teams Machine Shorthand Reporter Relationship Specialty Start Date End Date Nata Conley MD [address] [place] [phone] PCP - General Pediatrics 02/23/19 documented as of this encounter
--- OUTSIDE RECORDS SUMMARY | 2024-08-25 07:49 | XMS_ITS | Encounter Summary ---
Author Organization [facility] Address [address] [place] [address] Care Team Providers Care Day Camp Counselor Name Role Phone Rashi Melo MD Primary Care Provider [phone]- [phone] Reason for Visit * Reason Comments Ear Problem left ear x2 days Ear Pain Encounter Details Date Type Department Care Team (Late st Contact Info) Description 06/25/2017 5:20 PM CDT Office Visit [facility] [employer] [facility] AT [address] [address] Provider, [facility] Strep throat (Primary Dx) Social History [...] 06/25/2017 5:2 9 PM CDT Growth Chart: [facility] (Girls, 2- 20 Years) documented in this encounter Patient Instructions * Patient Instructions* Gin Cochran APRN-BYPRODUCTS OPERATOR - 06/25/2017 5:44 PM CDT Images from the original note were not included. Strep Throat in Children ANTHROPOLOGICAL LINGUIST: Strep throat is a throat infection caused [...] them during your child's visits. ?? 2016 [employer]. Information is for End User's use only and may not be sold, redistributed or otherwise used for commercial purposes. All illustrations and images included in CareNotes?? are the copyrighted property of [employer]. or [employer]. The above information is an health care aide only. It is not intended as [...] Strep A INTERNAL CONTROL Present Lot Number [id number] Expiration Date 11210915 documented in this encounter [...] Strep A Internal Control Present Lot # [id number] Expiration Date 11210915 Throat ENTIRE THROAT (SURFACE REGION OF NECK) / Unknown 06/25/2017 Gin Cochran CLOTHES IRONER-[employer] OPERATOR LAB - POINT O F CARE ORDERABLES documented in this encounter Visit Diagnoses Diagnosis Strep throat- Primary Streptococcal sore throat documented in this encounter Care Teams Day Camp Counselor Relationship Specialty Start Date End Date Rashi Melo MD [address] [place] [address] PCP - General Pediatrics 07/24/16 02/22/19 documented as of this encounter
--- OUTSIDE RECORDS SUMMARY | 2024-08-25 07:49 | XMS_ITS | Encounter Summary ---
Author Organization [facility] Address [address] [place] [address] Care Team Providers Care Test Engineering Manager Name Role Phone Rashi Melo MD Primary Care Provider [phone]- [phone] Reason for Visit * Reason Onset Date Comments Follow-up 05/20/2018 Encounter Details Date Type Department Care Team (Late st Contact Info) Description 05/20/2018 Telephone [facility] [employer] [facility] AT [address] [address] Lisa Ledesma APRN-CNP [address] [place] [address] Follow-up Social History Tobacco Use [...] 1:48 PM CDT Left message to contact [phone] for any questions or concerns. documented in this encounter Plan of Treatment Not on file documented as of this encounter Visit Diagnoses Not on filedocumented in this encounter Care Teams Test Engineering Manager Relationship Specialty Start Date End Date Rashi Melo MD [address] [place] [phone] PCP - General Pediatrics 07/24/16 02/22/19 documented as of this encounter
--- OUTSIDE RECORDS SUMMARY | 2024-08-25 07:49 | XMS_ITS | Encounter Summary ---
Author Organization [facility] Address [address] [place] [address] Care Team Providers Care Patient Safety Sitter Name Role Phone Rashi Melo MD Primary Care Provider [phone]- [phone] Reason for Visit * Reason Comments Congestion Cough Fever Headache Nausea Diarrhea Encounter Details Date Type Department Care Team ([facility] st Contact Info) Description 05/18/2018 7:00 PM CDT Office Visit [facility] AT [address] [address] Provider, [facility] Acute maxillary sinusitis, recurrence not specified [...] 7:0 8 PM CDT Growth Chart: [facility] (Girls, 2- 20 Years) documented in this encounter Patient Instructions * Patient Instructions* Rene Buciol Lucius MISSILE PAD MECHANIC-CAPACITY PLANNING ANALYST - 05/18/2018 7:32 PM CDT Images from [...] sinusitis ?? Allergies ?? Group daycare or early childhood associate What are the signs and symptoms of [...] your child. The above information is an certified medication aide only. It is not intended as medicaladvice for individual conditions or treatments. Talk to your doctor, nurse or pharmacist before following any medical regimen to see if it is safe and effective for you. ?? 2017 [employer] Information is for End User's use only and may not be sold, redistributed or otherwise used for commercial purposes. All illustrations and images included in CareNotes?? are the copyrighted property of [employer] or [employer]. documented in this encounter Progress Notes * [...] fluticasone propionate (FLONASE) 50 MCG/ACT nasal spray [place] 2 sprays into each nostril once daily [...] propionate (FLONASE) 50 MCG/ACT nasal spray Sig: [place] 2 sprays into each nostril once daily Dispense: 1 bottles Refill: 0 Recent Results (from the past 24 hour(s)) STREP A SCREEN Collection Time: 05/18/18 7:30 PM Result Value Ref Range Strep A Rapid Negative Negative Strep A INTERNAL CONTROL Present Lot Number [id number] Expiration Date 10/28/2019 INFLUENZA A+B - POINT OF CARE (AMB) Collection Time: 05/18/18 7:30 PM Result Value Ref Range Influenza A Ag Negative Negative Influenza B Ag Negative Negative Influenza Control present NEGATIVE - POSITIVE Influenza Lot# [id number] Influenza Expir Date 10/17/2019 documented in this [...] 05/18/2018 7:30 PM CDT Candi Kan Bucio MISSILE PAD MECHANIC-CAPACITY PLANNING ANALYST LAB - POIN T OF CARE ORDERABLES * STREP A SCREEN (05/18/2018 7:30 PM CDT) Strep A Rapid POCT Negative Negative Strep A Internal Control Present Lot # [id number] Expiration Date 10/28/2019 Throat ENTIRE THROAT (SURFACE REGION OF NECK) / Unknown 05/18/2018 7:30 PM CDT Candi Coronaeal MISSILE PAD MECHANIC-CAPACITY PLANNING ANALYST LAB - POIN T OF CARE ORDERABLES documented in this encounter Visit Diagnoses Diagnosis Acute maxillary sinusitis, recurrence not specified- Primary documented in this encounter Care Teams Patient Safety Sitter Relationship Specialty Start Date End Date Rashi Melo MD [address] [place] [address] PCP - General Pediatrics 07/24/16 02/22/19 documented as of this encounter
--- OUTSIDE RECORDS SUMMARY | 2024-08-25 07:49 | XMS_ITS | Encounter Summary ---
Author Organization [facility] Address [address] [facility] [place] [address] Care Team Providers Care Airline Pilot/First Officer Name Role Phone Rashi Melo MD Primary Care Provider [phone]- [phone] Reason for Visit * Reason Onset Date Comments Follow-up 06/27/2017 Encounter Details Date Type Department Care Team ([facility] Contact Info) Description 06/27/2017 Telephone [facility] [employer] [facility] [address] [place] [address] Adilene Bowling, VICE PRESIDENT SAFETY-PBX MANAGER [address], [place] Follow-up Social History Tobacco Use Types [...] on filedocumented in this encounter Care Teams Airline Pilot/First Officer Relationship Specialty Start Date End Date Rashi Melo MD [address] [place] [phone] PCP - General Pediatrics 07/24/16 02/22/19 documented as of this encounter
--- OUTSIDE RECORDS SUMMARY | 2024-08-25 07:49 | XMS_ITS | Encounter Summary ---
Author Organization [facility] Address [address] [place] [address] Care Team Providers Care Rn Plastic Surgery Name Role Phone Rashi Melo MD Primary Care Provider [phone]- [phone] Reason for Visit * Reason Comments Cough [...] st Contact Info) Description 07/24/2016 9:52 PM WIRE TEMPERER - 07/25/2016 12:09 AM WIRE TEMPERER Emergency ER at [address] [address] Streptococcal sore throat Discharge Disposition: Home or [...] Comments Blood Pressure 106/79 07/24/2016 11:23 PM WIRE TEMPERER Pulse 112 07/24/2016 11:23 PM WIRE TEMPERER Temperature 37.9 ??C (100.3 ??F) 07/25/2016 12:08 AM WIRE TEMPERER Respiratory Rate 12 07/24/2016 11:23 PM WIRE TEMPERER Oxygen Saturation 98% 07/24/2016 9:50 PM WIRE TEMPERER Inhaled Oxygen Concentration - - Weight 59.6 kg (131 lb 6.3 oz) 07/24/2016 9:50 P M WIRE TEMPERER Height - - Body Mass Index - - documented in this encounter Discharge Instructions * Discharge Instructions* Janina Stoll, CONOR-CHILD PSYCHIATRIST - 07/24/2016 11:46 PM WIRE TEMPERER Sore Throat A sore throat is a [...] Document Reviewed: 05/01/2013 ExitCare?? Patient Information ??2014 [employer]. This information is not intended to replace advice given to you by your health care provider. Make sure you discuss any questions you have with your health care provider. TEMPERER documented in this encounter Medications at Time [...] NAD noted. Patient walked out of department. TEMPERER * Janina Stoll APRN-CNP - 07/24/2016 11:35 [...] hours a day, from any computer, through [employer], the online version of our electronic medical record. If you would like to use this service, please call Ericka Sherman, Connectivity Coordinator, at . We appreciate the opportunity to care for your patients. If you would like additional information, please call the emergency department directly at . Sincerely, Janina Stoll APRN-TIA Division of Emergency Medicine [place], [place] [facility] [place] EMERGENCY DEPARTMENT Provider contact with the patient: 07/24/2016 23:35 Carmen Tse [id number] [facility] History Chief Complaint Patient presents [...] Clinical Impression Final diagnoses: Streptococcal sore throat TEMPERER documented in this encounter Plan of Treatment Not on file documented as of this encounter Procedures Procedure Name Priority Date/Time Associated Diagnosis Comments STREP A SCREEN DIRECT W RFLX STREP A CULTURE STAT 07/24/2016 9:52 PM WIRE TEMPERER documented in this encounter Results * (ABNORMAL) STREP A SCREEN DIRECT W RFLX STREP A CULTURE (07/24/2016 9:52 PM WIRE TEMPERER) Strep A Rapid Positive(A ) Negative 07/24/2016 11:00 PM WIRE TEMPERER [facility] Microbiology ENTIRE THROAT (SURFACE REGION OF NECK) / Unknown 07/24/2016 9:52 PM WIRE TEMPERER 07/24/2016 10:51 PM WIRE TEMPERER Pablo Barlow MD LAB - MICROBIOLO GY ORDERABLES [facility] [place] [address] documented in this encounter Visit Diagnoses Diagnosis Streptococcal sore throat documented in this encounter Administered Medications Inactive Administered Medications - up to 3 most recent administrations Medication Order MAR Action Action Date Dose Rate Site amoxicillin (AMOXIL) suspension 1,000 mg 1,000 mg, Oral, ONCE, 1 dose, On Lina 07/24/16 at 2345, Shake well before using; Refrigerate $ Given 07/24/2016 11:51 PM WIRE TEMPERER 1,000 mg ibuprofen (MOTRIN) tablet 600 mg 600 mg, Oral, ONCE, 1 dose, On Lina 07/24/16 at 2345, Maximum allowable amount = 3200 mg / 24 hours. $ Given 07/24/2016 11:28 PM WIRE TEMPERER 600 mg documented in this encounter Active and Recently Administered Medications Times are shown in WIRE TEMPERER. Scheduled Medication Order 07/23/2016 07/24/2016 07/25/2016 amoxicillin [...] RN) documented in this encounter Care Teams Rn Plastic Surgery Relationship Specialty Start Date End Date Rashi Melo MD [address] [place] [phone] PCP - General Pediatrics 07/24/16 02/22/19 documented as of this encounter
== END 2024-08-21 01:49 | disposition home or self-care (01) ==
PROVIDERS: Emergency Provider Physician Assistant
DX: R11.2 Nausea with vomiting, unspecified (principal); Z20.822 Contact with and (suspected) exposure to COVID-19
CPT/HCPCS: 36415; 74177; 80053; 81001; 81025; 83690; 83735; 85025; 87086; 87637; 96361; 96374; 96375; 99284; J2405; J7030; Q9967